=== PATIENT | male | born 1935 | race Hispanic/Latino ===

== ENCOUNTER 2020-03-13 19:18 | Inpatient (IN) | payer OTHER ==
--- OUTSIDE RECORDS SUMMARY | 2020-03-13 19:28 | XMS REPORT | Continuity of Care Document ---
:1935 Author Organization [employer] Care Team Providers Name Role Phone [place] Unavailable Un available Problems Problem Status Onset Classification Date Comments Sourc e Date Reported F/U Active 03/30/[address] F/U /OB PER DR Active 11/10/19 [place] AV[place] [address] [place] [address] Center GREAT TOE Active 11/10/19 [facility] AMPUTATION [address] [place] [address] Center FOLLOW UP Active 06/25/[address] BLOOD COTH IN LEG Active 05/20/[address] WOUND BIG TOE LEFT Active 01/09/[address] DIABETES WITH Active 11/04/19 [place] OTHER SPECIFIED 15 [facility] MANIFESTAT Center DX:440.23/ Active 09/04/19 [facility] ATHEROSCLEROSIS OF 15 [facility] ART Center CCL/ LEFT LEG LIVESTOCK PRODUCER Active 09/04/19 [facility] / DX:440.23 15 Medical Center 440.23 Active 05/04/20 [place] [id number] Medical Center CCL/LEFT LEG [place] LIVE[place] PRODUC[place]/DX: 440.23 Medic al Center LEFT 2ND TOE [place] [facility] LEFT SECOND TOE Active 02/14/20 [place],ICD.[id number] [place], [place] [address] Center PERIPHERAL ARTERY Active 02/01/20 [facility] DZ, CHRONIC 12 Medical OSTEOMYELITIS LT [address] FOOT ULCER OF OTHER [place] 01/24/20 [place] OF FOOT [address] [place] [address] Center WOUND Active 05/14/[address] Center UNK Active 04/14/20 [facility] [place] VASCUALR DISEASE Active 03/31/[address] LT FOOT Active 03/29/20 [facility] CELLULITIS, 11 Medical DIABETIC FOOT Center ULCER, DM, 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 Active 03/29/[address] Center NHW Active 05/14/[address] Center [place] Active 05/14/[address] Diabetes mellitus Active Problem 02/09/2013 [facility] [place] Infection Active Problem 02/09/2013 [facility], [place] Weakness Active Problem 02/09/2013 [facility] Poor arterial Active Problem 02/09/2013 [place] perfusion of leg [facility] ica Center Diabetes mellitus Active Problem 05/12/2016 [facility] (disorder) [facility] Infectious disease Active Problem 05/12/2016 [facility] (disorder) [facility] Poor arterial Active Problem 05/12/2016 [place] perfusion of leg Med ica (finding) Center Asthenia (finding) Active Problem 05/12/2016 [facility] Hypertensive Active Problem 05/12/2016 [place] disorder, systemic edical arterial Center (disorder) 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/2016 [facility] vascular disease Med ical (disorder) 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 CELLULITIS OF FOOT Active [facility] ROUTINE MEDICAL Active [facility] EXAM Medical Center OPEN WOUND Active TOE-COMPL [facility] NECROTIZING Active FASCIITIS [facility] ULCER OTHER PART Active [facility] OF FOOT Medical Center DMII OTH NT ST Active [facility] OTHER GENERAL Active [place] SYMPTOMS Medical Center GANGRENE Active [facility] EMBOLISM DUE TO Active [facility] INTERNAL Medical ORTHOPEDIC PROS Cent er GANGRENE, NOT Active [place] as ELSEWHERE Medical CLASSIFIED Center Medications Medication Details Route Status Patient Ordering Order Source Instructions Provider Date Sodium Chloride 1,000 mL, Rate: No Longer 11/24/ [facility] 0.154 MEQ/ML 17 Active 2015 Medical Injectable microgram/hr, Center Solution Route: IV, Dosing Weight 81.818 kg, Total Volume: 1,000 mL, PRN itching, Start date: 11/25/15 15:55:00 CDT, Duration: 30 day, Stop date: 12/25/15 15:54:00 CDT Naloxone Notes: Same as No Longer 11/24/ [place] Narcan Active 2016 Medical Center Dexamethasone Notes: No Longer [place] Concentration: Active 2015 Medical 4mg/ml Center Ondansetron Notes: (Same [place] Long[place] as: Zofran) Active 2016 Medical MEDICATION Center WASTE Product Size: 4 mg Product Wasted: ___ mg Flumazenil Notes: (Same No Longer [place] as: Romazicon) Active 2015 Medical Center Albuterol 0.83 Notes: SEE RT No Longer H [place] MG/ML Inhalant DOCUMENTATION Active 2015 Med ical Solution (Same as: Center Proventil) Fentanyl Notes: (Same No Longer [place] as: Sublimaze) Active 2015 Medical Preservative Center free. Metoprolol Notes: (Same No Longer [place] as: Lopressor) Active 2015 Medical Push over 2 Center minutes Ondansetron 4 mg, Route: Inactive [place] IVP, ONCE, 2015 Medical Dosing Weight Center 81.818, kg, PRN Nausea & Vomiting, Start date: 11/25/15 13:09:00 CDT Naloxone 0.4 mg, Route: Inactive [place] IVP, Q2MIN, 2015 Medical Dosing Weight Center 81.818, kg, PRN Narcotic Reversal, Start date: 11/25/15 13:09:00 CDT, Duration: 8 doses or times, Stop date: Limited # of times Hydromorphone Notes: Same as: No Longer [place] Dilaudid Active 2015 Medical Center Flumazenil 0.2 mg, Route: [place] IVP, PRN, 2016 Medical Dosing Weight Center 81.818, kg, PRN Benzodiazepine Reversal, Initial dose, Start date: 11/25/15 13:09:00 CDT, Duration: 30 day, Stop date: 12/25/15 13:08:00 CDT Labetalol 10 mg, 2 mL, [place] Longer [place] Route: IVP, Active 2015 Medical Drug form: INJ, Center Q5Min, Dosing Weight 81.818, kg, PRN Elevated BP, Start date: 11/25/15 13:09:00 CDT, Duration: 5 doses or times, Stop date: Limited # of times Hydralazine Notes: (Same [place] Long[place] as: Apresoline) Active 2016 Medical Push over 5 Center minutes Acetaminophen 1 tab, PO, Q6H, Active [place] 325 MG / PRN for pain, X 2016 Medical Hydrocodone 6 day, # 24 Center Bitartrate 10 tab, 0 MG Oral Tablet Refill(s), [[place] 10/325] given to patient ciprofloxacin 500 mg = 1 tab, Active [place] 500 mg oral PO, Q12H, X 7 2016 Medica l tablet day, # 14 tab, Center 0 Refill(s), given to patient ceFAZolin Notes: Same as: No Longer [place] Ancef Active 2015 [facility] Levemir 10 units, Active [place] SUB-Q, QPM, 0 2016 Medical Refill(s) [place] pravastatin 40 40 mg = 1 tab, Active [place] mg oral tablet PO, QAM, 0 2015 Medica l Refill(s) [place] magnesium oxide 400 mg = 1 tab, Active [place] 400 mg oral PO, Daily, # 10 2016 Medi renato tablet tab, 0 Center Refill(s) ferrous sulfate 325 mg = 1 tab, Active [place] 325 mg oral PO, Daily, # 30 2016 Medi renato enteric coated tab, 0 Center tablet Refill(s) Caltrate 600 + 1 tab, PO, BID, Active H [place] D 0 Refill(s) 2016 [facility] Aspirin 81 MG 81 mg = 1 tab, Active [place] Enteric Coated PO, Daily, # 90 2015 edical Tablet tab, 3 Center Refill(s) clopidogrel 75 75 mg = 1 tab, Active [place] MG Oral Tablet PO, Daily, # 30 2015 M edical [Plavix] tab, 0 Center Refill(s) levothyroxine 50 microgram = Active [place] 50 mcg (0.05 1 tab, PO, 2016 Medical mg) oral tablet Daily, # 30 Cent er tab, 0 Refill(s) Senna-gen 8.6 17.2 mg = 2 Active [place] mg oral tablet tab, PO, 2016 Medical Bedtime, PRN Center for constipation, PRN, # 100 tab, 0 Refill(s) ramipril 2.5 mg 2.5 mg = 1 cap, Active [place] oral capsule PO, BID, 0 2016 Medical Refill(s) [place] Levemir FlexPen Notes: Same as No Longer [place] Levemir Do not Active 2015 Medical hold insulin Center without contacting prescriber WASTE: F/P - Black; E - Municipal Trash Bin "single patient use only" insulin detemir Notes: Same as Inactive [facility] Levemir Do not 2016 [facility] insulin Center without contacting prescriber WASTE: F/P - Black; E - Municipal Trash Bin "single patient use only" doxycycline Notes: (Same Inactive [place] hyclate 100 MG as: Vibramycin) 2016 M edical Oral Capsule No Center milk/antacids/i priya. Altace Notes: (Same Inactive [place] as:Altace) 2016 Medical [place] senna 8.6 mg 8.6 mg = 1 tab, Active [place] oral tablet PO, Bedtime, 2016 Medical PRN Center Constipation, 0 Refill(s) ramipril 1.25 2.5 mg, PO, Active [place] mg oral capsule Daily, 0 2015 Medical Refill(s) [place] Lidocaine 1 patch, TOP, [place] Hydrochloride Daily, Remove 2016 [place] 0.05 MG/MG after 12 hours, Cente r Transdermal 0 Refill(s) Patch [Lidoderm] metoprolol 50 mg = 1 tab, Active [place] tartrate 50 mg PO, BID, 0 2016 Medica l oral tablet Refill(s) [place] Lactulose 667 20 gm = 30 mL, Active [place] MG/ML Oral PO, Q8H, PRN 2016 Medical Solution Constipation, 0 Center Refill(s) Insulin, 5 unit, SUB-Q, Active [place] Aspart, Human TID-Before 2016 Medical Meals, PRN Center Blood Glucose Results, 0 Refill(s) heparin sodium, SUB-Q, Q8H, 0 Active [place] porcine 2500 Refill(s) 2016 Medical UNT/ML [place] Injectable Solution Famotidine 20 20 mg = 1 tab, Active [place] MG Oral Tablet PO, Daily, 0 2015 Medi renato Refill(s) Center doxycycline 100 mg = 1 cap, Active [place] hyclate 100 MG PO, [id number], 0 2015 Wi dical Oral Capsule Refill(s) [place] Docusate Sodium 100 mg = 1 cap, Active [place] 100 MG Oral PO, BID, 0 2015 Medical Capsule Refill(s) [place] [Colace] acetaminophen 650 mg = 2 tab, Active [place] 325 mg oral PO, Q6H, PRN 2016 Medical tablet Pain Score 1-3, Center 0 Refill(s) insulin detemir 10 unit, SUB-Q, Active [place] 100 units/mL Bedtime, 0 2015 Medical subcutaneous Refill(s) [place] solution clopidogrel 75 75 mg = 1 tab, Active [place] mg oral tablet PO, Daily, 0 2015 Medi renato Refill(s) Center Altace Notes: (Same Inactive [facility] as:Altace) 2015 [facility] quinapril 5 mg, Route: Inactive [place] PO, Drug form: 2016 Medical TAB, Daily, Center Dosing Weight 75, kg, Start date: 06/04/15 13:00:00, Duration: 30 day, Stop date: 07/04/15 9:00:00 Lasix 20 mg, Route: Inactive [place] IVP, Drug form: 2016 Medical INJ, ONCE, Center Dosing Weight 75, kg, Start date: 06/03/15 19:56:00, Stop date: 06/03/15 19:56:00 Magnesium Notes: WASTE: Inactive [place] Sulfate F/P - Sink; E - 2016 [facility] Municipal Trash [place] Bin potassium Notes: (Same Inactive [facility] chloride as: K-Dur 20) 2015 [facility] "Do Not Crush" Center With food and full glass of water Ancef Notes: Same as: No Longer [place] Ancef Active 2016 [facility] heparin sodium, Notes: porcine No Longer [place] porcine 2500 heparin Active 2015 Medical UNT/ML Center Injectable Solution Magnesium 1 gm, 100 mL, [place] Sulfate Route: IVPB, 2016 Medical Drug form: INJ, Center ONCE, Dosing Weight 75, kg, Start date: 06/02/15 7:46:00, Stop date: 06/02/15 7:46:00 Lasix Notes: (Same Inactive [place] as: Lasix) 2016 Medical Center Flumazenil Notes: (Same [place] as: Romazicon) 2016 Medical Center Naloxone Notes: Same as [place] Narcan 2016 [facility] Center Hydralazine Notes: (Same Inactive [place] as: Apresoline) 2016 Medical Push over 5 Center minutes Oxycodone Notes: (Same Inactive [place] as: Roxicodone) 2016 [facility] Center Ondansetron Notes: (Same Inactive [place] as: Zofran) 2016 Medical MEDICATION Center WASTE Product Size: 4 mg Product Wasted: ___ mg Ancef Notes: Same as: [place] Ancef 2016 [facility] Center Magnesium Oxide Notes: (Same Inactive [place] as: Mag-Ox 400) 2016 [facility] Magnesium oxide [place] [id number] elemental magnesium Dose=____mg magnesium oxide (___mg elemental magnesium) Sodium Chloride Notes: (Same No Longer H [place] 0.0769 MEQ/ML as: Osmitrol) Active 2015 [facility] renato Injectable Infuse through Center Solution 5 micron or smaller filter Sodium Chloride 1,000 mL, Rate: No Longer [place] 0.0769 MEQ/ML 70 ml/hr, Active 2015 Medical Injectable Infuse over: Center Solution 14.3 hr, Route: IV, Dosing Weight 75 kg, Total Volume: 1,000, Start date: 05/31/15 6:00:00, Duration: 30 day, Stop date: 06/30/15 5:59:00 Acetylcysteine 600 mg, 3 mL, No Longer H [place] 200 MG/ML Route: PO, Drug Active 2015 Medica l Inhalant form: SOLN, Center Solution BID, Dosing Weight 75, kg, Start date: 05/30/15 17:00:00, Stop date: 06/01/15 9:00:00 Magnesium 2 gm, 50 mL, Inactive [place] Sulfate Route: IVPB2015 Medical Drug form: INJ, Center Q2H, Dosing Weight 75, kg, Total dose = 4 gm, Start date: 05/30/15 8:00:00, Duration: 2 doses or times, Stop date: 05/30/15 10:00:00 potassium Notes: (Same Inactive [facility] chloride as: K-Dur 20) 2015 Medical "Do Not Crush" Center With food and full glass of water Pepcid Notes: (Same No Longer [facility] as: Pepcid) Active 2016 Medical Center Magnesium 2 gm, 50 mL, Inactive [place] Sulfate Route: IVPB2015 Medical Drug form: INJ, Center ONCE, Dosing Weight 75, kg, Total dose = 2 gm, Start date: 05/29/15 7:12:00, Duration: 1 doses or times, Stop date: 05/29/15 7:12:00 Lasix Notes: (Same Inactive [facility] as: Lasix) 2015 Medical Center Guaifenesin Notes: (Same [place] as: Guaifenesin Active 2015 Medical [place], Humibid [place], Center Mucinex) "Do Not Crush" Take medication with plenty of water. Magnesium 2 gm, 50 mL, Inactive [place] Sulfate Route: IV2015 Medical Drug form: INJ, Center ONCE, Dosing Weight 75, kg, Total dose = 2 gm, Start date: 05/28/15 7:51:00, Duration: 1 doses or times, Stop date: 05/28/15 7:51:00 Magnesium 2 gm, 50 mL, Inactive [place] Sulfate Route: IVPB2015 Medical Drug form: INJ, Center ONCE, Dosing Weight 75, kg, Total dose = 2 gm, Start date: 05/27/15 6:47:00, Duration: 1 doses or times, Stop date: 05/27/15 6:47:00 potassium Notes: (Same Inactive [facility] chloride as: K-Dur 20) 2015 Medical "Do Not Crush" Center With food and full glass of water Fentanyl Notes: (Same Inactive [place] as: Sublimaze) 2016 Medical Preservative Center free. Hydralazine Notes: (Same [place] Long[place] as: Apresoline) Active 2016 Medical Push over 5 Center minutes potassium Notes: (Same Inactive [place] chloride as: K-Dur 20) 2016 Medical "Do Not Crush" Center With food and full glass of water Magnesium 2 gm, 50 mL, Inactive [place] Sulfate Route: IVPB, 2016 Medical Drug form: INJ, Center ONCE, Dosing Weight 75, kg, Total dose = 2 gm, Start date: 05/25/15 10:26:00, Duration: 1 doses or times, Stop date: 05/25/15 10:26:00 Acetaminophen Notes: Do not No Longer [place] exceed 4 Active 2016 Medical gm/day. (Same Center as: Tylenol) mannitol 25% 1,000 mL, Rate: No Longer [place] intravenous 50 ml/hr, Active 2015 Medical solution 12.5 Infuse over: Cente r gm + sodium 22.5 hr, Route: bicarbonate IV, Dosing 8.4% 75 mEq + Weight 75 kg, Sodium Chloride Total Volume: 0.45% 1,125, Start date: 05/24/15 15:30:00, Stop date: 06/23/15 15:29:00 Docusate Sodium Notes: (Same No Longer [place] 100 MG Oral as: Colace) (Do Active 2015 [facility] renato Capsule Not Crush) Center [Colace] Lactulose Notes: (Same [place] Long[place] as:Chronulac) Active 2015 [facility] senna 8.6 mg Notes: (Same [place] Longer [place] oral tablet as: Senokot) Active 2016 Medical Center 1/2 NS 1000 mL 1,000 mL, Rate: Inactive [place] + sodium 50 ml/hr, 2016 Medical bicarbonate Infuse over: 20 Cent er 8.4% 75 mEq + hr, Route: IV, mannitol 25% Dosing Weight intravenous 75 kg, Total solution 12.5 Volume: 1,000, gm Start date: 05/23/15 11:01:00, Duration: 48 hr, Stop date: 05/25/15 11:00:00 mannitol 25% 1,000 mL, Rate: No Longer H [place] intravenous 50 ml/hr, Active 2016 Medical solution 12.5 Infuse over: Cente r gm + sodium 22.5 hr, Route: bicarbonate IV, Dosing 8.4% 75 mEq + Weight 75 kg, Sodium Chloride Total Volume: 0.45% 1,125, Start date: 05/23/15 9:23:00, Stop date: 05/24/15 11:00:00 mannitol 25% Notes: (Same [place] intravenous as: Osmitrol) 2015 Medica l solution 12.[address] gm + sodium 5 micron or bicarbonate smaller filter 8.4% 75 mEq + Sodium Chloride 0.45% Sodium Chloride Notes: (Same Inactive [place] 0.0769 MEQ/ML as: Osmitrol) 2015 Medi [place] Injectable Infuse through Center Solution 5 micron or smaller filter potassium Notes: (Same Inactive [place] chloride as: K-Dur 20) 2016 Medical "Do Not Crush" Center With food and full glass of water Acetylcysteine 600 mg, 3 mL, No Longer H [place] 200 MG/ML Route: PO, Drug Active 2015 Medica l Inhalant form: SOLN, Center Solution BID, Dosing Weight 75, kg, Start date: 05/22/15 17:00:00, Duration: 2 day, Stop date: 05/24/15 9:00:00 Levemir FlexPen Notes: Same as No Longer [place] Levemir Do not Active 2015 Medical hold insulin Center without contacting prescriber "single patient use only" ferrous sulfate Notes: Give No Longer [place] with food. "Do Active 2015 Medical Not Crush" Center remove patch Notes: Remove No Longer [place] patch 12 hours Active 2015 Medical after Center application each day. Sodium Chloride 750 mL, Rate: No Longer [place] 0.154 MEQ/ML 75 ml/hr, Active 2015 Medical Injectable Infuse over: 10 Cente r Solution hr, Route: IV, Dosing Weight 75 kg, Total Volume: 750, Start date: 05/21/15 16:18:00, Duration: 10 hr, Stop date: 05/22/15 2:17:00 Lidocaine Notes: Apply [place] Longer [place] Hydrochloride only once for Active 2015 [place] 0.05 MG/MG up to 12 hours Center Transdermal in a 24-hour Patch period (12 [Lidoderm] hours on and 12 hours off). (Same as: Lidoderm) "Remove old patch before application of new patch" Morphine Notes: (Same Inactive [facility] as:MORPhine 2015 Medical Sulfate) [place] Acetaminophen Notes: Same as No Longer [place] 325 MG / [place] 325-7.5mg Active 2015 Medical Hydrocodone Do not exceed Cent er Bitartrate 7.5 4gm/day of MG Oral Tablet acetaminophen. [[place] 7.5/325] Magnesium 2 gm, 50 mL, Inactive [facility] Sulfate Route: IVPB, 2016 Medical Drug form: INJ, Center ONCE, Dosing Weight 75, kg, Total dose = 2 gm, Start date: 05/21/15 5:50:00, Duration: 1 doses or times, Stop date: 05/21/15 5:50:00 Morphine Notes: (Same Inactive [facility] as:MORPhine 2015 Medical Sulfate) [place] Hydralazine Notes: (Same Inactive [place] as: Apresoline) 2016 Medical Push over 5 Center minutes Sodium Chloride 1,000 mL, Rate: No Longer [place] 0.0769 MEQ/ML 50 ml/hr, Active 2015 Medical Injectable Infuse over: [place] Solution 22.5 hr, Route: IV, Dosing Weight 79.091 kg, Total Volume: 1,125, Start date: 05/20/15 22:00:00, Duration: 30 day, Stop date: 06/19/15 21:59:00 Pravastatin Notes: (Same [place] as: Pravachol) Active 2016 [facility] Acetylcysteine 600 mg, 3 mL, No Longer [place] 200 MG/ML Route: PO, Drug Active 2015 Medica l Inhalant form: SOLN, [place] Solution BID, Dosing Weight 79.091, kg, Start date: 05/20/15 17:00:00, Duration: 2 day, Stop date: 05/22/15 9:00:00 quinapril Notes: Inactive [facility] Non-Formulary 2016 Medical Drug (Same as: [place] Accupril) metoprolol Notes: (Same No Longer [place] tartrate as: Lopressor) Active 2016 Medical Center Protonix Notes: Tablet [place] Longer [place] should not be Active 2015 [facility] chewed or [place] crushed. (Same as: Protonix) Altace Notes: (Same No Longer [place] as:Altace) Active 2016 [facility] Center Plavix Notes: (Same No Longer [place] As: Plavix) Active 2016 [facility] Aspirin Notes: Do not No Longer [place] crush or chew. Active 2015 Medical (Same As: [place] Ecotrin) Insulin, Notes: Roll in No Longer [place] as Aspart, Human palms of hands Active 2015 Med ical gently; Do not Center shake vigorously. (Same as: NovoLOG) "single patient use only" Stable for 28 days at room temperature. Expires in days from D ate Dextrose 50% 12.5 gm, 25 mL, No Longer [facility] Syringe Route: IVP, Active 2015 Medical Drug Form: INJ, Center Dosing Weight 79.091, kg, PRN, PRN Blood Glucose Results, Start date: 05/20/15 14:08:00, Duration: 30 day, Stop date: 06/19/15 14:07:00 Glucagon 1 mg, Route: No Longer [place] IM, Drug form: Active 2015 Medical PDR/INJ, PRN, Center Dosing Weight 79.091, kg, PRN Blood Glucose Results, Start date: 05/20/15 14:08:00, Duration: 30 day, Stop date: 06/19/15 14:07:00 Heparin - one 4,000 unit, [place] time bolus for Route: IV, Drug 2015 edical ACS form: INJ, Center ONCE, Dosing Weight 79.091, kg, Priority: STAT, Start date: 05/20/15 14:05:00, Stop date: 05/20/15 14:05:00 Heparin 30 Route: IVP, [place]er [place] unit/kg Bolus PRN, 2,400 Active 2015 Medical (Heparin Dosing unit, 2.4 mL, Ce nter Weight) Drug form: INJ, PRN, Heparin Protocol, Start date: 05/20/15 14:05:00 Stop date: 06/19/15 14:04:00, 30 day Heparin 60 Route: IVP, No Longer [place] unit/kg Bolus PRN, 6,300 Active 2015 Medical (Heparin Dosing unit, 6.3 mL, Ce nter Weight) Drug form: INJ, PRN, Heparin Protocol, Start date: 05/20/15 14:05:00 Stop date: 06/19/15 14:04:00, 30 day heparin 500 mL, Rate: No Longer [place] additive 25,000 18.98 ml/hr, Active 2015 Med ical unit [12 Infuse over: Center unit/kg/hr] + 26.3 hr, Route: Premix Diluent IV, Dosing Dextrose 5% 500 Weight 79.091 mL kg, Total Volume: 500 mL, Start date: 05/20/15 14:05:00, Duration: 30 day, Stop date: 06/19/15 14:04:00 Ondansetron Notes: (Same Inactive [place] as: Zoalisson) 2016 Medical MEDICATION Center WASTE Product Size: 4 mg Product Wasted: ___ mg Morphine Notes: (Same Inactive [place] as:MORPhine 2016 Medical Sulfate) Center Acetylcysteine 600 mg, 3 mL, No Longer [place] 200 MG/ML Route: PO, Drug Active 2014 Medica l Inhalant form: SOLN, Center Solution Q12H, Dosing Weight 87.727, kg, give 6 doses, Start date: 09/10/14 21:00:00, Duration: 6 doses or times, Stop date: 09/13/14 9:00:00 clopidogrel 75 75 mg = 1 tab, Active [place] MG Oral Tablet PO, Daily, # 90 2014 M edical [Plavix] tab, 3 Center Refill(s) sodium 1,000 mL, Rate: No Longer [place] as bicarbonate 75 ml/hr, Active 2014 Medical 8.4% 75 mEq + Infuse over: 15 Ce nter mannitol 25% hr, Route: IV, intravenous Dosing Weight solution 12.5 87.727 kg, gm + 1/2 NS Total Volume: 1,000 mL 1,125, Start date: 09/10/14 12:44:00, Duration: 48 hr, Stop date: 09/12/14 12:43:00 Nitroglycerin Notes: (Same Inactive [place] as:Stacey, 2015 Medical Nitrostat) "Do Center Not Crush" Sublingual tablet NS 1,000 mL 1,000 mL, Rate: Inactive [place] 75 ml/hr, 2015 Medical Infuse over: Center 13.3 hr, Route: IV, Dosing Weight 87.727 kg, Total Volume: 1,000, Start date: 09/10/14 8:27:00, Duration: 30 day, Stop date: 10/10/14 8:26:00 Sodium Chloride 250 mL, 250 Inactive [place] 0.154 MEQ/ML ml/hr, Infuse 2015 Medic al Injectable Over: 1 hr, Center Solution Route: IV, 250, Drug form: INJ, ONCE, Priority: STAT, Dosing Weight 87.727 kg, Start date: 09/10/14 8:26:00, Duration: 1 doses or times, Stop date: 09/10/14 8:26:00 Sodium Chloride 750 mL, Rate: Inactive H [place] 0.154 MEQ/ML 75 ml/hr, 2014 Medical Injectable Infuse over: 10 Cente r Solution hr, Route: IV, Dosing Weight 92.727 kg, Total Volume: 750, Start date: 09/10/14 8:16:00, Duration: 1 doses or times, Stop date: 09/10/14 18:15:00 bromfenac 0.9 Route: RIGHT No Longer [place] MG/ML EYE, Drug Form: Active 2013 Medical Ophthalmic SOLN, Dosing Center Solution Weight 92.727, [Bromday] kg, Daily, Start date: 05/13/14 9:00:00, Duration: 30 day, Stop date: 06/11/14 9:00:00 Humulin 70/30 Notes: Roll in Inactive [place] palms of hands 2014 Medical gently; Do not Center shake. (Same as: NovoLIN Mix 30) Do not hold insulin without contacting prescriber Bromday 0.09% Bromday 0.09% Inactive [place] opthalmic soln opthalmic soln, 2014 M edical 1 drp, Drug Center form: MISC, Route: RIGHT EYE, Daily, 05/13/14 9:00:00, Duration: 30 day, Stop date: 06/11/14 9:00:00 Effient 60kg, without Inactive [facility] history of 2013 Medical TIA/Ischemic Center stroke and without likely bypass surgery aspirin Notes: Do not Inactive [facility] crush or chew. 2014 Medical (Same As: [place] Ecotrin) quinapril Notes: Inactive [facility] Non-Formulary 2014 Medical Drug (Same as: [place] Accupril) Pravastatin Notes: (Same Inactive [facility] as as: Pravachol) 2013 [facility] Saline Flush Notes: Same as: No Longer H [place] 0.9% BD Posiflush Active 2013 [facility] Sterile [place] Levemir FlexPen Notes: Same as No Longer [facility] Levemir Do not Active 2013 [facility] insulin Center without contacting prescriber "single patient use only" normal saline 1,000 mL, Rate: No Longer [facility] 0.9% IV 1,000 50 ml/hr, Active 2013 Medical mL Infuse over: 20 Center hr, Route: IV, Dosing Weight 92.727 kg, Total Volume: 1,000, Start date: 05/12/14 16:41:00, Duration: 30 day, Stop date: 06/11/14 16:40:00 Saline Flush Notes: Same as: No Longer H [place] 0.9% BD Posiflush Active 2013 [facility] Sterile [place] Nitroglycerin Notes: (Same No Longer [facility] as:Nitroquick, Active 2013 Medical Nitrostat) "Do Center Not Crush" Sublingual tablet Acetaminophen Notes: (Same No Longer [place] 325 MG / as: [place] Active 2013 Medical Hydrocodone 325/5) Do not Cente r Bitartrate 5 MG exceed 4gm/day Oral Tablet of acetaminophen. Saline Flush Notes: Same as: No Longer H [place] 0.9% BD Posiflush Active 2013 [facility] Sterile [place] Sodium Chloride 250 mL, 250 Inactive [facility] 0.154 MEQ/ML ml/hr, Infuse 2013 Medic al Injectable Over: 1 hr, Center Solution Route: IV, 250, Drug form: INJ, ONCE, Priority: Routine, Dosing Weight 92.727 kg, Start date: 05/12/14 11:35:00, Duration: 1 doses or times, Stop date: 05/12/14 11:35:00 Saline Flush Notes: (Same [place] 0.9% as: BD 2013 Medical Posiflush) Center Labetalol 10 mg, 2 mL, Inactive [place] Route: IVP, 2013 Medical Drug form: INJ, Center Q15Min, Dosing Weight 93.182, kg, PRN Hypertension, Start date: 01/22/14 13:02:00, Duration: 3 doses or times, Stop date: 01/23/14 0:00:00 Acetaminophen Notes: (Same Inactive [place] 325 MG / as: [place] 2013 Medical Hydrocodone 325/5) Do not Cente r Bitartrate 5 MG exceed 4gm/day Oral Tablet of acetaminophen. Saline Flush Notes: (Same Inactive [place] 0.9% as: BD 2013 Medical Posiflush) Center Acetaminophen 1 tab, Route: Inactive [place] 325 MG / PO, Dosing 2013 Medical Hydrocodone Weight 93.182, Cente r Bitartrate 5 MG kg, Q4H, PRN Oral Tablet Pain Score 1-5, Start date: 01/22/14 10:05:00, Duration: 30 day, Stop date: 02/21/14 10:04:00 Nitroglycerin 0.4 mg, Route: Inactive Ci[place] SL, Drug form: 2013 Medical TAB, Q5Min, Center Dosing Weight 93.182, kg, PRN Chest Pain, Start date: 01/22/14 10:05:00, Duration: 3 doses or times, Stop date: Limited # of times Saline Flush Notes: (Same Inactive [place] 0.9% as: BD 2013 Medical Posiflush) Center Levemir FlexPen 45 units, Active [place] as SUB-Q, Bedtime, 2013 Medical 0 Refill(s) Center Humulin 70/30 40 units, Active [place] SUB-Q, Daily, 0 2013 Medical Refill(s) Center prasugrel 10 MG 10 mg = 1 tab, Active H [place] Oral Tablet PO, Daily, # 30 2013 [facility] renato [Effient] tab, 0 Center Refill(s) Metformin 1,000 mg = 1 Active [place] hydrochloride tab, PO, BID, 0 2013 Me dical 1000 MG Oral Refill(s) Center Tablet Saline Flush Notes: (Same Inactive [place] 0.9% as: BD 2013 Medical Posiflush) Center Saline Flush 5 ml, Route: Inactive [place] 0.9% IVP, Drug Form: 2013 Medical INJ, Dosing Center Weight 85.455, kg, Q12H, Start date: 01/21/14 21:00:00, Duration: 30 day, Stop date: 02/20/14 9:00:00 Saline Flush 5 ml, Route: Inactive [place] 0.9% IVP, Drug Form: 2013 Medical INJ, Dosing Center Weight 85.455, kg, PRN, PRN Line Flush, Start date: 01/21/14 10:19:00, Duration: 30 day, Stop date: 02/20/14 10:18:00 Sodium Chloride 250 mL, Infuse Inactive [place] 0.154 MEQ/ML Over: 1 hr, 2013 Medical Injectable Route: IV, Center Solution ONCE, Priority: Routine, Dosing Weight 85.455 kg, Start date: 01/21/14 10:19:00, Duration: 1 doses or times, Stop date: 01/21/14 10:19:00 Augmentin 875 875 mg, 1 tab, PO Active [place] mg oral tablet PO, Q12H, 14 2011 [facility] renato tab, Center Substitution Allowed, Maintenance, TAB Vicoprofen 7.5 1-2TAB, PO, PO Active [place] 02/26[facility] [place] mg-200 mg oral Q4H, PRN, 30 2011 [facility] renato tablet tab, for pain, Center Substitution Allowed, Maintenance, TAB acetaminophen-h 2 tab, Route: PO No Longer Michael [place] ydrocodone 325 PO, Drug Form: Active 2011 Wi dical mg-5 mg oral TAB, Dosing Center tablet Weight 85.455, kg, Q4H, PRN Pain Score 4-6, Start date: 02/27/12 8:24:00, Duration: 30 day, Stop date: 03/28/12 8:23:00 metoprolol 1 mg, 1 mL, IVP No Longer Michael Barreraa s Route: IVP, 2011 Medical Drug form: INJ, Center Q5Min, Dosing Weight 85.455, kg, PRN Elevated BP, Start date: 02/27/12 8:24:00, Duration: 5 doses or times, Stop date: 02/28/12 0:00:00 labetalol 5 mg, 1 mL, IVP No Longer Michael [place] Route: IVP, 2011 Medical Drug form: INJ, Center Q5Min, Dosing Weight 85.455, kg, PRN Elevated BP, Start date: 02/27/12 8:24:00, Duration: 5 doses or times, Stop date: 02/28/12 0:00:00 morphine 2 mg, 0.5 mL, IVP No Longer Michael Barreraa s Sulfate Route: IVP, 2011 Medical Drug form: INJ, Center Q5Min, Dosing Weight 85.455, kg, PRN Pain Score 4-6, Start date: 02/27/12 8:24:00, Duration: 8 doses or times, Stop date: 02/28/12 0:00:00 ondansetron 4 mg, 2 mL, IVP No Longer Michael [place]rera as Route: IVP, 2011 Medical Drug form: INJ, Center ONCE, Dosing Weight 85.455, kg, PRN Nausea & Vomiting, Start date: 02/27/12 8:24:00 naloxone 0.04 mg, 0.1 IVP No Longer Michael [place] mL, Route: IVP, Active 2011 Medical Drug form: INJ, Center Q2MIN, Dosing Weight 85.455, kg, PRN Narcotic Reversal, Start date: 02/27/12 8:24:00, Duration: 8 doses or times, Stop date: 02/28/12 0:00:00 flumazenil 0.2 mg, 2 mL, IVP No Longer [place] Route: IVP, 2011 Medical Drug form: INJ, Center PRN, Dosing Weight 85.455, kg, PRN Benzodiazepine Reversal, Initial dose, Start date: 02/27/12 8:24:00, Duration: 5 doses or times, Stop date: 02/28/12 0:00:00 Cleocin 900 mg, 6 mL, IV No Longer [place] Phosphate Route: IV, Drug Active 2011 Medica l form: INJ, PRE Center OP, Start date: 02/26/12 21:00:00, Duration: 1 day, Stop date: 02/27/12 20:59:00 Citracal 250 mg PO, BID, PO Active [place] + D Substitution 2011 Medical Allowed, Center Maintenance magnesium oxide 400 mg, 1 tab, PO Active H [place] 400 mg oral PO, Daily, 10 2011 Medica l tablet tab, Center Substitution Allowed, TAB ferrous sulfate PO, Daily, PO Active [place] 324 mg (65 mg Substitution 2011 Medic al elemental iron) Allowed Center oral enteric coated tablet Aspirin Low PO, Daily, PO Active [place] Dose 81 mg oral Substitution 2011 Med ical tablet Allowed Center clindamycin PO, PO Active [place] Substitution 2011 Medical Allowed Center Effient PO, Daily, PO Active [place] Substitution 2011 Medical Allowed Center quinapril 20 mg 20 mg, 1 tab, PO Active [place] oral tablet PO, Daily, 30 2011 Medica l tab, Center Substitution Allowed, TAB pravastatin 40 40 mg, 1 tab, PO Active [place] mg oral tablet PO, Daily, 30 2011 Med ical tab, Center Substitution Allowed, TAB metFORmin 1000 1,000 mg, 1 PO Active [place] mg oral tablet tab, PO, BID, 2011 Med ical 30 tab, Center Substitution Allowed clindamycin 300 300 mg, 1 cap, PO Active Bertin [place] mg oral capsule PO, TID, 126 2011 Med ical cap, 0, 0, Center Substitution Allowed prasugrel 10 mg 10 mg, 1 tab, PO Active Bertin H [place] oral tablet PO, Daily, 60 2011 Medica l tab, 3, 3, Center Substitution Allowed, TAB prasugrel 10 mg, 1 tab, PO No Longer Mcdonough Barrera as Route: PO, Drug Active [place] 2011 Medical form: TAB, Center Daily, Dosing Weight 85.455, kg, Start date: 02/03/12 9:00:00, Duration: 30 day, Stop date: 03/03/12 9:00:00 Norvasc 5 mg, 1 tab, PO No Longer Mcdonough [facility] Route: PO, Drug Active [place] 2011 Medical form: TAB, Center Daily, Dosing Weight 85.455, kg, Priority: Routine, Start date: 02/03/12 9:00:00, Duration: 30 day, Stop date: 03/03/12 9:00:00 aspirin 325 mg 325 mg, 1 tab, PO No Longer Mcdonough [facility] tablet Route: PO, Drug Active [place] 2011 Medical form: TAB, Center Daily, Dosing Weight 85.455, kg, Start date: 02/03/12 9:00:00, Duration: 30 day, Stop date: 03/03/12 9:00:00 Lantus 20 unit, 0.2 SUB-Q No Longer [place] [facility] mL, Route: Active 2011 Medical SUB-Q, Drug Center form: INJ, Daily, Dosing Weight 85.455, kg, Start date: 02/03/12 9:00:00, Duration: 30 day, Stop date: 03/03/12 9:00:00 Januvia 100 mg 100 mg, 1 tab, PO No Longer [place] [facility] oral tablet PO, Daily, 30 Active 2011 Medica l tab, Center Substitution Allowed, TAB pravastatin 20 40 mg, 2 tab, PO Active [facility] [place] mg oral tablet PO, QPM, 60 2011 Medic al tab, Center Substitution Allowed, TAB prasugrel 10 mg 10 mg, 1 tab, PO No Longer [place] oral tablet PO, Daily, 90 Active 2011 Medica l tab, Center Substitution Allowed, TAB aspirin 325 mg 325 mg, 1 tab, PO Active Mcdonough [place] tablet PO, Daily, 60 Pino2011 Medical tab, Center Substitution Allowed, TAB Norvasc 5 mg 5 mg, 1 tab, PO No Longer [place] [facility] oral tablet PO, Daily, 60 Active 2011 Medica l tab, Center Substitution Allowed, TAB hydrALAZINE 10 mg, 0.5 mL, IV No Longer Ceasar [facility] Route: IV, Drug Active [place] 2011 Medical form: INJ, Q4H, Center Dosing Weight 85.455, kg, PRN Elevated BP, Priority: NOW, Start date: 02/03/12 8:50:00, Duration: 30 day, Stop date: 03/04/12 8:49:00, SBP > 160 acetylcysteine 600 mg, 6 mL, PO No Longer Bertin [place] oral solution Route: PO, Drug Active 2011 Me dical (mg) form: SOLN, Center Q12H, Dosing Weight 85.455, kg, Start date: 02/02/12 21:00:00, Stop date: 02/04/12 9:00:00 Norvasc 5 mg, 1 tab, PO No Longer Ceasar [place] Route: PO, Drug Active [place] 2011 Medical form: TAB, Center Daily, Dosing Weight 85.455, kg, Priority: NOW, Start date: 02/02/12 19:44:00, Duration: 30 day, Stop date: 03/03/12 9:00:00 hydrALAZINE 10 mg, 0.5 mL, IV No Longer Bertin [facility] Route: IV, Drug Active 2011 Medical form: INJ, Q4H, Center Dosing Weight 85.455, kg, Priority: NOW, Start date: 02/02/12 19:40:00, Duration: 30 day, Stop date: 03/03/12 16:00:00 nitroglycerin 2 inch, Route: TOP No Longer Avendaño [facility] 2% topical TOP, Drug Form: Active 2011 Medic al ointment OINT, Dosing Center Weight 85.455, kg, Q6H, Start date: 02/02/12 18:00:00, Duration: 30 day, Stop date: 03/03/12 12:00:00 pravastatin 40 mg, 2 tab, PO No Longer Mcdonough Maxine [place] Route: PO, Drug Active [place] 2011 Medical form: TAB, QPM, Center Dosing Weight 85.455, kg, Start date: 02/02/12 17:00:00, Duration: 30 day, Stop date: 03/02/12 17:00:00 morphine 2 mg, 0.5 mL, IVP No Longer [place] Sulfate Route: IVP, Active [place] 2011 Medical Drug form: INJ, Center Q15Min, Dosing Weight 85.455, kg, PRN Chest Pain, Start date: 02/02/12 16:59:00, Duration: 2 doses or times, Stop date: Limited # of times ondansetron 4 mg, 1 tab, PO No Longer [place] Route: PO, Drug Active [place] 2011 Medical form: TAB, Q8H, Center Dosing Weight 85.455, kg, PRN Nausea & Vomiting, Start date: 02/02/12 16:59:00, Duration: 30 day, Stop date: 03/03/12 16:58:00 aspirin 325 mg 324 mg, 4 tab, PO No Longer Mcdonough [place] tablet Route: PO, Drug Active [place] 2011 Medical form: [place], Center ONCE, Dosing Weight 85.455, kg, Start date: 02/02/12 16:59:00, Stop date: 02/02/12 16:59:00 Sodium Chloride 1,000 mL, Rate: IV No Longer Mcdonough [place] 0.9% IV 1,000 30 ml/hr, Active [place] 2011 Medical mL Infuse over: Center 33.3 hr, Route: IV, kg, Total Volume: 1,000, Start date: 02/02/12 16:59:00, Duration: 30 day, Stop date: 03/03/12 16:58:00 heparin 5000 5,000 unit, 1 SUB-Q No Longer P[place]ner [place] units/mL mL, Route: Active 2011 Medical injectable SUB-Q, Drug Center solution form: INJ, Q8H, Dosing Weight 85.455, kg, Start date: 02/02/12 16:00:00, Duration: 30 day, Stop date: 03/03/12 8:00:00 [place] 10/325 1 tab, Route: PO No Longer Plessner [place] oral tablet PO, Drug Form: Active 2011 Medic al TAB, Dosing Center Weight 85.455, kg, Q4H, PRN Pain, Start date: 02/02/12 14:21:00, Duration: 30 day, Stop date: 03/03/12 14:20:00 influenza virus 0.5 ml, Route: Inactive SYSTEM [place] vaccine, IM, Drug Form: 2011 Medical inactivated INJ, Start Center date: 02/02/12 9:00:00, Stop date: 02/02/12 9:00:00 linagliptin 5 mg, Route: PO No Longer Bertin [place] PO, Daily, Active 2011 Medical Dosing Weight Center 85.455, kg, Start date: 02/02/12 9:00:00 lisinopril 40 mg, 2 tab, PO No Longer Bertin [place] Route: PO, Drug Active 2011 Medical form: TAB, Center Daily, Dosing Weight 85.455, kg, Start date: 02/02/12 9:00:00, Duration: 30 day, Stop date: 03/02/12 9:00:00 aspirin 81 mg 81 mg, 1 tab, PO No Longer Mcdonough [place] tablet, enteric Route: PO, Drug Active [place] 2011 Medical coated form: ECTAB, Center Daily, Dosing Weight 85.455, kg, Start date: 02/02/12 9:00:00, Duration: 30 day, Stop date: 03/02/12 9:00:00 Plavix 75 mg, 1 tab, PO No Longer Brooks Ci[place] Route: PO, Drug Active 2011 Medical form: TAB, Center Daily, Dosing Weight 85.455, kg, Start date: 02/02/12 9:00:00, Duration: 30 day, Stop date: 03/02/12 9:00:00 Mucomyst oral 600 mg, Route: PO No Longer Brooks Yuan [place] solution (mg) PO, Drug form: Active 2011 Med ical SOLN, BID, Center Dosing Weight 85.455, kg, Start date: 02/02/12 9:00:00, Duration: 2 day, Stop date: 02/03/12 17:00:00 Januvia 100 mg, 1 tab, PO No Longer Bertin [place]rera as Route: PO, Drug Active 2011 Medical form: TAB, Center Daily, Start date: 02/02/12 9:00:00, Duration: 30 day, Stop date: 03/02/12 9:00:00 prasugrel 60 mg, 6 tab, PO No Longer Guy [place] Route: PO, Drug Active 2011 Medical form: TAB, Center ONCE, Dosing Weight 85.455, kg, Start date: 02/02/12 7:52:00, Stop date: 02/02/12 7:52:00 morphine 2 mg, 0.5 mL, IVP No Longer Bertin [place] Sulfate Route: IVP, Active 2011 Medical Drug form: INJ, Center ONCE, Dosing Weight 85.455, kg, Start date: 02/02/12 5:59:00, Stop date: 02/02/12 5:59:00 morphine 1 mg, 0.25 mL, IVP No Longer [place] Sulfate Route: IVP, Active 2011 Medical Drug form: INJ, Center ONCE, Dosing Weight 85.455, kg, Start date: 02/01/12 23:09:00, Stop date: 02/01/12 23:09:00 latanoprost 1 drp, Daily, Active [place] as ophthalmic Substitute 2011 Medical Allowed Center metFORmin 1,000 mg, No Longer [place] Daily, Active 2011 Medical Substitution Center Allowed Tradjenta 5 mg 5 mg, 1 tab, Active [place] oral tablet Daily, 2011 Medical Substitution Center Allowed Lantus 40, Bedtime, Active Substitution 2011 Medical Allowed Center Humulin 70/30 40, Active Substitution 2011 Medical Allowed Center acetaminophen-h 1 tab, Route: PO No Longer Plessner [place] ydrocodone 325 PO, Drug Form: Active 2011 Me dical mg-5 mg oral TAB, Dosing Center tablet Weight 85.455, kg, Q6H, PRN Pain, Start date: 02/01/12 20:01:00, Duration: 30 day, Stop date: 03/02/12 20:00:00 Dextrose 50% 25 gm, 50 mL, IVP No Longer Bertin [place] Syringe Route: IVP, Active 2011 Medical Drug Form: INJ, Center Dosing Weight 85.455, kg, PRN, PRN Blood Glucose Results, Start date: 02/01/12 19:32:00, Duration: 30 day, Stop date: 03/02/12 19:31:00 glucagon 1 mg, Route: IM No Longer [place] IM, Drug form: Active 2011 Medical PDR/INJ, PRN, Center Dosing Weight 85.455, kg, PRN Blood Glucose Results, Start date: 02/01/12 19:32:00, Duration: 30 day, Stop date: 03/02/12 19:31:00 insulin aspart 6 unit, 0.06 SUB-Q No Longer [place] [facility] mL, Route: Active 2011 Medical SUB-Q, Drug Center form: SOLN, TID-Before Meals, Dosing Weight 85.455, kg, PRN Blood Glucose Results, Start date: 02/01/12 19:32:00, Duration: 30 day, Stop date: 03/02/12 19:31:00 Mucomyst oral 600 mg, 3 mL, PO No Longer Mcdonough [facility] solution (mg) Route: PO, Drug Active [place] 2011 Wi dical form: SOLN, Center BID, Dosing Weight 85.455, kg, Priority: NOW, Start date: 02/01/12 19:30:00, Stop date: 02/03/12 17:00:00 NS 1,000 mL 1,000 mL, Rate: IV No Longer [place] [facility] 125 ml/hr, Active 2011 Medical Infuse over: 8 Center hr, Route: IV, kg, Total Volume: 1,000, Start date: 02/01/12 19:28:00, Duration: 30 day, Stop date: 03/02/12 19:27:00 Lantus 10 unit, 0.1 SUB-Q No Longer Bertin [facility] mL, Route: Active 2011 Medical SUB-Q, Drug Center form: INJ, Daily, Dosing Weight 85.455, kg, Priority: NOW, Start date: 02/01/12 19:26:00, Duration: 30 day, Stop date: 03/02/12 9:00:00 ondansetron 4 mg, Route: IVP No Longer [place] IVP, Drug form: Active 2010 [place] INJ, ONCE, Start date: 04/17/11 10:38:00, Stop date: 04/17/11 10:38:00 hydrALAZINE 10 mg, Route: IV No Longer Dina IV, ONCE, Start Active 2010 [facility] t date: 04/17/11 10:37:00, Stop date: 04/17/11 10:37:00 clindamycin 900 mg, 6 mL, IVPB No Longer [place] 04/17/ H Route: IVPB, Active 2010 [facility] Drug form: INJ, ONCALL, Start date: 04/17/11 9:00:00, Duration: 30 day, Stop date: 05/17/11 8:59:00 Lactated 1,000 mL, Rate: IV No Longer [place] IV 40 ml/hr, Active 2010 [facility] 1,000 mL Infuse over: 25 hr, Route: IV, Total Volume: 1,000, Start date: 04/17/11 8:16:00, Duration: 30 day, Stop date: 05/17/11 8:15:00 ferrous sulfate 1 tab, PO, PO Active 325 mg oral Daily, 30 tab, 2010 [facility] enteric coated Substitution tablet Allowed, ECTAB metoprolol 25 25 mg, PO, PO Active mg oral tablet, Daily, 30 tab, 2010 [facility] extended Substitution release Allowed Plavix 75 mg 75 mg, 1 tab, PO Active [facility] [place] oral tablet PO, Daily, 2010 Medica l tab, Center Substitution Allowed, TAB Mucomyst oral 600 mg, 3 mL, PO No Longer Omidvar [place] solution (mg) Route: PO, Drug Active 2010 Wi dical form: SOLN, On Center Adm, Please send 2 doses now to bedside, Priority: STAT, Start date: 04/01/11 11:27:00, Stop date: 04/02/11 0:00:00 Lovenox 40 mg, 0.4 mL, SUB-Q No Longer [facility] [place] Route: SUB-Q, Active 2010 Medical Drug form: INJ, Center Daily, Start date: 04/01/11 9:00:00, Duration: 30 day, Stop date: 04/30/11 9:00:00 acetylcysteine 600 mg, 6 mL, PO No Longer [facility] Route: PO, Drug Active 2010 Medical Form: SOLN, Center BID, Start date: 03/31/11 9:00:00, Duration: 6 doses or times, Stop date: 04/02/11 17:00:00 Plavix 75 mg, 1 tab, PO No Longer Guy [facility] Route: PO, Drug Active 2010 Medical form: TAB, Center Daily, Start date: 03/31/11 9:00:00, Duration: 30 day, Stop date: 04/29/11 9:00:00 Sodium Chloride 1,000 mL, Rate: IV No Longer Guy [place] 0.45% IV 1,000 75 ml/hr, Active 2010 Medical mL Infuse over: Center 13.3 hr, Route: IV, Total Volume: 1,000, Start date: 03/31/11 4:00:00, Duration: 30 day, Stop date: 04/30/11 3:59:00 acetylcysteine 600 mg, 3 mL, PO No Longer Guy [facility] Route: PO, Drug Active 2010 Medical Form: ALLISONN, [place] BID, Routine, Start date: 03/30/11 23:30:00, Stop date: 04/02/11 9:00:00 acetylcysteine 600 mg, 6 mL, PO No Longer U[facility] Route: PO, Drug Active 2010 Medical Form: ALLISONN, [place] BID, NOW, Start date: 03/30/11 22:06:00, Duration: 6 doses or times, Stop date: 04/02/11 9:00:00 Lantus 30 unit, 0.3 SUB-Q No Longer Kandala [facility] mL, Route: Active 2010 Medical SUB-Q, Drug Center form: INJ, Bedtime, Start date: 03/30/11 21:00:00, Duration: 30 day, Stop date: 04/28/11 21:00:00 Plavix 300 mg, 1 tab, PO No Longer Guy Barreraa s Route: PO, Drug Active 2010 Medical form: TAB, Center ONCE, Start date: 03/30/11 19:14:00, Duration: 1 doses or times, Stop date: 03/30/11 19:14:00 calcium-vitamin 1 tab, Route: PO No Longer Kandala [place] D 500 mg-200 PO, Drug Form: Active 2010 Medi renato intl units oral TAB, Daily, Cent er tablet Start date: 03/30/11 9:00:00, Duration: 30 day, Stop date: 04/28/11 9:00:00 pravastatin 40 mg, 2 tab, PO No Longer [place] Route: PO, Drug Active 2010 Medical form: TAB, Center Bedtime, Start date: 03/30/11 9:00:00, Stop date: 04/28/11 21:00:00 quinapril 20 mg, Route: PO No Longer Kandala 03/30[facility] Barrera as PO, Drug form: Active 2010 Medical TAB, Daily, Center Start date: 03/30/11 9:00:00, Duration: 30 day, Stop date: 04/28/11 9:00:00 Humulin 70/30 30 unit, 0.3 SUB-Q No Longer Omidvar [place] mL, Route: Active 2010 Medical SUB-Q, Drug Center form: INJ, Daily, Start date: 03/30/11 9:00:00, Duration: 30 day, Stop date: 04/28/11 9:00:00 cilostazol 50 mg, 1 tab, [facility] [place] Route: PO, Drug Active 2010 Medical form: TAB, Center Daily, Start date: 03/30/11 9:00:00, Duration: 30 day, Stop date: 04/28/11 9:00:00 linagliptin 5 mg, Route: [facility] [place] PO, Drug form: Active 2010 Medical TAB, Daily, Center Start date: 03/30/11 9:00:00 Citracal 250 mg 1 tab, Route: PO [facility] 03[facility]30[facility] [place] + D PO, Drug Form: Active 2010 Medical TAB, BID, Start Center date: 03/30/11 9:00:00, Duration: 30 day, Stop date: 04/28/11 17:00:00 aspirin 81 mg 81 mg, 1 tab, PO No Longer Kandala 03/30[facility] [place] tablet, enteric Route: PO, Drug Active 2010 Medical coated form: ECTAB, Center Daily, Start date: 03/30/11 9:00:00, Duration: 30 day, Stop date: 04/28/11 9:00:00 Altace 2.5 mg, 1 cap, PO No Longer [place]ala 03/30[facility] [place] Route: PO, Drug Active 2010 Medical form: CAP, Center Daily, Start date: 03/30/11 9:00:00, Duration: 30 day, Stop date: 04/28/11 9:00:00 Linagliptin 5mg Linagliptin MISC No Longer Omidvar 03/30[facility] [place] 5mg, 5 mg, 1 Active 2010 Medical tab, Drug form: Center MISC, Route: MISC, Daily, 03/30/11 9:00:00, Duration: 30 day, Stop date: 04/28/11 9:00:00 Insulin regular 4 unit, 0.04 SUB-Q No Longer Omidvar [facility] [place] mL, Route: Active 2010 Medical SUB-Q, Drug Center form: SOLN, TID-Before Meals, PRN Blood Glucose Results, Start date: 03/30/11 8:05:00, Duration: 30 day, Stop date: 04/29/11 8:04:00 enoxaparin 40 mg, 0.4 mL, SUB-Q No Longer Kandala 03/30[facility] [place] Route: SUB-Q, Active 2010 Medical Drug form: INJ, Center Q24H, Start date: 03/30/11 0:00:00, Duration: 30 day, Stop date: 04/28/11 0:00:00 acetaminophen 650 mg, 2 tab, PO No Longer Kandala [facility] [place] Route: PO, Drug Active 2010 Medical form: TAB, Q4H, Center PRN Pain/Fever, Start date: 03/29/11 23:41:00, Duration: 30 day, Stop date: 04/28/11 23:40:00 docusate 100 mg, 1 cap, PO No Longer Kandala Barrera as Route: PO, Drug Active 2010 Medical form: CAP, BID, Center PRN Constipation, Start date: 03/29/11 23:41:00, Duration: 30 day, Stop date: 04/28/11 23:40:00 morphine 2 mg, 1 mL, IVP No Longer Kandala [place] Sulfate Route: IVP, Active 2010 Medical Drug form: INJ, Center Q3H, PRN Pain Score 4-6, Start date: 03/29/11 23:41:00, Duration: 30 day, Stop date: 04/28/11 23:40:00 acetaminophen-h 2 tab, Route: PO No Longer [facility] 03/30[facility] ydrocodone 325 PO, Drug Form: Active 2010 Wi dical mg-5 mg oral TAB, Q4H, PRN Cente r tablet Pain Score 4-6, Start date: 03/29/11 23:41:00, Duration: 30 day, Stop date: 04/28/11 23:40:00 Lovenox 40 40 mg, 0.4 mL, SUB-Q No Longer [facility] 03/30[facility] [place] mg/0.4 mL SUB-Q, Daily, 4 Active 2010 Medica l subcutaneous mL, Center solution Substitution Allowed, INJ Insulin regular 2 unit, Route: SUB-Q No Longer [facility] 03/30[facility] [facility] SUB-Q, Active 2010 Medical TID-Before Center Meals, PRN Blood Glucose Results, Start date: 03/29/11 22:00:00, Duration: 30 day, Stop date: 04/28/11 21:59:00 metFORmin 1000 1,000 mg, 1 PO Active [facility] 03/30[facility] [place] oral tablet tab, PO, BID, 2010 Med ical 30 tab, Center Substitution Allowed Citracal 250 mg 1 tab, PO, BID, PO Active [facility] 03/30[facility] + D 200 intl 150 tab, 2010 Medical units oral Substitution Center tablet Allowed, Maintenance, TAB Vicodin ES 1 tab, PO, Q6H, PO Active [facility] 03/30[facility] [place] 7.5/750 oral PRN, 40 tab, as 2010 Med ical tablet needed for Center pain, Substitution Allowed, Maintenance aspirin 81 mg 1 tab, PO, PO Active [facility] 03/30[facility] [place] tablet, enteric Daily, 0 tab, 2010 Me dical coated Substitution Center Allowed, ECTAB cilostazol 50 50 mg, 1 tab, PO Active [facility] 03/30[facility] [place] mg oral tablet PO, Daily, 2010 Medica l Substitution Center Allowed pravastatin 40 1 tab, PO, PO Active [facility] 03/30[facility] [place] mg oral tablet Daily, 30 tab, 2010 Me dical Substitution Center Allowed, TAB quinapril 20 mg 1 tab, PO, PO Active [facility] 03/30[facility] [place] oral tablet Daily, 30 tab, 2010 Medic al Substitution Center Allowed, TAB Tradjenta 5 mg 5 mg, 1 tab, Active [facility] 03/30[facility] [place] oral tablet Daily, 2010 Medical Substitution Center Allowed Humulin 70/30 30 unit, SUB-Q, SUB-Q Active [facility] 03/30[facility] Daily, 2010 Medical Substitution Center Allowed Lantus 30 unit, SUB-Q, SUB-Q Active [place] [id number] Bedtime, 2010 Medical Substitution Center Allowed acetaminophen 650 mg, Route: PO No Longer [facility] 03/30[facility] [place] PO, Drug form: Active 2010 Medical TAB, Q4H, PRN Center Pain/Fever, Start date: 03/29/11 21:46:00, Duration: 30 day, Stop date: 04/28/11 21:45:00 acetaminophen-h 1 tab, Route: PO No Longer [facility] 03/30[facility] ydrocodone 325 PO, Drug Form: Active 2010 Wi dical mg-5 mg oral TAB, Q4H, PRN Cente r tablet Pain Score 1-3, Start date: 03/29/11 21:46:00, Duration: 30 day, Stop date: 04/28/11 21:45:00 morphine 2 mg, Route: IVP No Longer [facility] Sulfate IVP, Q3H, PRN Active 2010 [facility] Pain Score 4-6, Center Start date: 03/29/11 21:46:00, Duration: 30 day, Stop date: 04/28/11 21:45:00 docusate 100 mg, Route: PO No Longer [facility] [place] PO, Drug form: Active 2010 Medical CAP, BID, PRN Center Constipation, Start date: 03/29/11 21:46:00, Duration: 30 day, Stop date: 04/28/11 21:45:00 Allergies, Adverse Reactions, Alerts Substance Category Reaction Severity Reaction Status Date Comments S ource type Reported Bactrim Assertion Drug Active [place] allergy Medical Center Immunizations Immunization Date Given Site Status Last Comments Source Updated influenza virus 02/02/2012 completed [facility] vaccine, Medical inactivated Center influenza virus 02/02/2012 Left completed [facility] vaccine, deltoid [facility] inactivated Center Results Order Name Results Value Reference Date Interpretation Comments Shantal rce Range ELECTROLYT AGAP 12.1 10.0 - 11/17 [facility] [place] [facility] 20.0 /2015 [facility] ELECTROLYT eGFR 57 11/17 Result [facility] [place] [facility] Comment: The [facility] eGFR is Center calculated using the CKD-EPI formula. In most young, healthy individuals the eGFR will be >90 mL/min/1.73m2 . The eGFR declines with age. An eGFR of 60-89 may be normal in some populations, particularly the elderly, for whom the CKD-EPI formula has not been extensively validated. Use of the eGFR is not recommended in the following populations:< br/>
Vero viduals with unstable creatinine concentration s, including patients and those with serious co-morbid conditions.<b r/>
Patie nts with extremes in muscle mass or diet.

The data above are obtained from the National Kidney Disease Education Program (NKDEP) which additionally recommends that when the eGFR is used in patients with extremes of body mass index for purposes of drug dosing, the eGFR should be multiplied by the estimated BMI. ELECTROLYT Sodium Lvl 138 135 - 145 11/17 [facility] ELECTROLYT Creatinine 1.22 0.50 - 11/17 [facility] [place] [facility] Lvl 1.40 /2015 [facility] ELECTROLYT BUN 34 7 - 22 11/17 [facility] ELECTROLYT Glucose Lvl 353 70 - 99 11/17 [facility] [place] [facility] ELECTROLYT Calcium Lvl 9.0 8.5 - 10.5 11/17 [place] [facility] ELECTROLYT CO2 26 24 - 32 11/17 [facility] ELECTROLYT Chloride Lvl 105 95 - 109 11/17 [place] [facility] ELECTROLYT Potassium 5.1 3.5 - 5.1 11/17 [facility] HEMATOLOGY Monocytes 8.4 2.0 - 12.0 11/17 2015 [facility] HEMATOLOGY Basophils 0.4 0.0 - 1.0 11/17 [facility] HEMATOLOGY Eosinophils 0.1 0.0 - 0.5 11/17 [place] # /2015 [facility] HEMATOLOGY Segs-Bands # 5.1 1.5 - 8.1 11/17 [place] /2015 [facility] HEMATOLOGY Monocytes # 0.7 0.0 - 0.8 11/17 [place] [facility] HEMATOLOGY Lymphocytes 2.5 1.0 - 5.5 11/17 [place] # /2015 [facility] HEMATOLOGY Segs 60.6 45.0 - 11/17 [place] 75.0 /2015 [facility] HEMATOLOGY Eosinophils 1.4 0.0 - 4.0 11/17 a s [facility] HEMATOLOGY Lymphocytes 29.2 20.0 - 11/17 [place] 40.0 /2015 [facility] HEMATOLOGY D-Dimer 0.82 11/17 [facility] HEMATOLOGY PTT 30.3 22.9 - 11/17 [place] 35.8 /2015 [facility] HEMATOLOGY PT 13.7 12.0 - 11/17 [place] 14.7 /2015 [facility] HEMATOLOGY INR 1.02 0.85 - 11/17 [place] 1.17 [facility] HEMATOLOGY TEG Data See Note 11/17 [facility] (11/18/15 4:50 PM) [facility] HEMATOLOGY Coag Index -0.2 -3.0-3.0 - 11/17 [facility] 3.0 [facility] HEMATOLOGY Max Amp 65.8 50.0 - 11/17 [place] 70.0 [facility] HEMATOLOGY K-time 2.3 1.0 - 3.0 11/17 [facility] HEMATOLOGY G-value 9.6 4.5 - 11.0 11/17 [facility] HEMATOLOGY Angle 59.4 53.0 - 11/17 [place] 72.0 [facility] HEMATOLOGY Ly30 0.0 0.0 - 7.5 11/17 [facility] HEMATOLOGY R-time 6.2 5.0 - 10.0 11/17 [facility] HEMATOLOGY TEG Interp Thrombelas 11/17 [place] [facility] are essentiall y within or close to reference ranges. CPT:29783 HEMATOLOGY MPV 8.1 7.4 - 10.4 11/17 [facility] HEMATOLOGY Platelet 241 133 - 450 11/17 [facility] HEMATOLOGY RDW 13.1 11.5 - 11/17 [facility] 14.5 /2015 [facility] HEMATOLOGY WBC 8.5 3.7 - 10.4 11/17 [facility] HEMATOLOGY Hct 33.8 42.0 - 11/17 [place] 54.0 /2015 [facility] HEMATOLOGY Hgb 11.3 14.0 - 11/17 [place] 18.0 /2015 [facility] HEMATOLOGY RBC 3.87 4.70 - 11/17 [place] 6.10 /2015 [facility] HEMATOLOGY MCHC 33.6 32.0 - 11/17 [place] 36.0 /2015 [facility] HEMATOLOGY MCH 29.3 27.0 - 11/17 31.0 /2015 [facility] HEMATOLOGY MCV 87.4 80.0 - 11/17 [facility] 94.0 [facility] SPECIAL Hgb A1C 10.8 <=5.6 % 11/17 [facility] CHEMISTRY [facility] CHEM PANEL Magnesium 2.1 1.8 - 2.4 06/04 [facility] ELECTROLYT AGAP 12.4 10.0 - 06/04 [facility] ES 20.0 [facility] ELECTROLYT Sodium Lvl 141 135 - 145 06/04 [facility] ELECTROLYT Potassium 4.4 3.5 - 5.1 06/04 [facility] [place] [facility] Lvl [facility] ELECTROLYT CO2 25 24 - 32 06/04 [facility] ELECTROLYT Calcium Lvl 8.1 8.5 - 10.5 06/04 [place] [facility] ELECTROLYT Chloride Lvl 108 95 - 109 06/04 [place] [facility] ELECTROLYT BUN 18 7 - 22 06/04 [facility] ELECTROLYT Creatinine 1.03 0.50 - 06/04 [facility] ES Lvl 1.40 /2015 [facility] ELECTROLYT Glucose Lvl 90 70 - 99 06/04 [facility] [place] [facility] ELECTROLYT eGFR 70 06/04 Result [facility] Comment: The Medical eGFR is Center calculated using the CKD-EPI formula. In most young, healthy individuals the eGFR will be >90 mL/min/1.73m2 . The eGFR declines with age. An eGFR of 60-89 may be normal in some populations, particularly the elderly, for whom the CKD-EPI formula has not been extensively validated. Use of the eGFR is not recommended in the following populations:< br/>
Vero viduals with unstable creatinine concentration s, including patients and those with serious co-morbid conditions.<b r/>
Patie nts with extremes in muscle mass or diet.

The data above are obtained from the National Kidney Disease Education Program (NKDEP) which additionally recommends that when the eGFR is used in patients with extremes of body mass index for purposes of drug dosing, the eGFR should be multiplied by the estimated BMI. HEMATOLOGY PTT 35.6 22.9 - 06/04 [place] 35.8 /2015 [facility] HEMATOLOGY PT 14.3 12.0 - 06/04 [place] 14.7 /2015 [facility] HEMATOLOGY INR 1.08 0.85 - 06/04 [place] 1.17 /2015 [facility] HEMATOLOGY WBC 8.5 3.7 - 10.4 06/04 [facility] HEMATOLOGY RBC 2.78 4.70 - 06/04 [place] 6.10 /2015 [facility] HEMATOLOGY Hgb 8.3 14.0 - 06/04 [place] 18.0 [facility] HEMATOLOGY Hct 25.0 42.0 - 06/04 [place] 54.0 /2015 [facility] HEMATOLOGY MCH 29.9 27.0 - 06/04 [place] 31.0 /2015 [facility] HEMATOLOGY MCHC 33.3 32.0 - 06/04 [place] 36.0 /2015 [facility] HEMATOLOGY RDW 16.1 11.5 - 06/04 [place] 14.5 /2015 [facility] HEMATOLOGY Platelet 350 133 - 450 06/04 [facility] HEMATOLOGY MCV 89.9 80.0 - 06/04 [place] 94.0 [facility] HEMATOLOGY MPV 7.3 7.4 - 10.4 06/04 [facility] HEMATOLOGY Monocytes 5.6 2.0 - 12.0 06/04 [facility] HEMATOLOGY Eosinophils 1.8 0.0 - 4.0 06/04 [place] [facility] HEMATOLOGY Basophils 0.5 0.0 - 1.0 06/04 [facility] HEMATOLOGY Segs-Bands # 5.2 1.5 - 8.1 06/04 [place] /2015 [facility] HEMATOLOGY Segs 61.9 45.0 - 06/04 [facility] [place] 75.0 /2015 [facility] HEMATOLOGY Lymphocytes 30.2 20.0 - 06/04 [place] 40.0 [facility] HEMATOLOGY Monocytes # 0.5 0.0 - 0.8 06/04 [facility] HEMATOLOGY Eosinophils 0.2 0.0 - 0.5 06/04 [place] # /2015 [facility] HEMATOLOGY Lymphocytes 2.6 1.0 - 5.5 06/04 [facility] # [facility] CHEM PANEL Magnesium 1.9 1.8 - 2.4 06/03 [facility] CHEM PANEL eGFR 83 06/03 Result Comment: The Medical eGFR is Center calculated using the CKD-EPI formula. In most young, healthy individuals the eGFR will be >90 mL/min/1.73m2 . The eGFR declines with age. An eGFR of 60-89 may be normal in some populations, particularly the elderly, for whom the CKD-EPI formula has not been extensively validated. Use of the eGFR is not recommended in the following populations:< br/>
Vero viduals with unstable creatinine concentration s, including patients and those with serious co-morbid conditions.<b r/>
Patie nts with extremes in muscle mass or diet.

The data above are obtained from the National Kidney Disease Education Program (NKDEP) which additionally recommends that when the eGFR is used in patients with extremes of body mass index for purposes of drug dosing, the eGFR should be multiplied by the estimated BMI. CHEM PANEL Creatinine 0.88 0.50 - 06/03 [facility] Lvl 1.40 [facility] CHEM PANEL BUN 13 7 - 22 06/03 [facility] CHEM PANEL Glucose Lvl 64 70 - 99 06/03 [facility] CHEM PANEL Calcium Lvl 8.3 8.5 - 10.5 06/03 [facility] CHEM PANEL Sodium Lvl 140 135 - 145 06/03 [facility] CHEM PANEL Chloride Lvl 101 95 - 109 06/03 [facility] CHEM PANEL Potassium 3.8 3.5 - 5.1 06/03 [facility] CHEM PANEL AGAP 11.8 10.0 - 06/03 20.0 Medical Center CHEM PANEL CO2 31 24 - 32 06/03 [facility] HEMATOLOGY RBC 2.62 4.70 - 06/03 [place] 6.10 /2015 [facility] HEMATOLOGY Hgb 7.9 14.0 - 06/03 [place] 18.0 [facility] HEMATOLOGY WBC 9.7 3.7 - 10.4 06/03 [facility] HEMATOLOGY Hct 23.3 42.0 - 06/03 [place] 54.0 /2015 [facility] HEMATOLOGY MCH 30.1 27.0 - 06/03 [place] 31.0 [facility] HEMATOLOGY MCV 88.8 80.0 - 06/03 [place] 94.0 /2015 [facility] HEMATOLOGY Platelet 388 133 - 450 06/03 [facility] HEMATOLOGY MPV 7.3 7.4 - 10.4 06/03 [facility] HEMATOLOGY RDW 16.0 11.5 - 06/03 [place] 14.5 [facility] HEMATOLOGY MCHC 33.9 32.0 - 06/03 [place] 36.0 [facility] CHEM PANEL Magnesium 1.9 1.8 - 2.4 06/02 [facility] ELECTROLYT AGAP 10.9 10.0 - 06/02 [place] ES 20.0 [facility] ELECTROLYT eGFR 82 06/02 [facility] Comment: The Medical eGFR is Center calculated using the CKD-EPI formula. In most young, healthy individuals the eGFR will be >90 mL/min/1.73m2 . The eGFR declines with age. An eGFR of 60-89 may be normal in some populations, particularly the elderly, for whom the CKD-EPI formula has not been extensively validated. Use of the eGFR is not recommended in the following populations:< br/>
Vero viduals with unstable creatinine concentration s, including patients and those with serious co-morbid conditions.<b r/>
Patie nts with extremes in muscle mass or diet.

The data above are obtained from the National Kidney Disease Education Program (NKDEP) which additionally recommends that when the eGFR is used in patients with extremes of body mass index for purposes of drug dosing, the eGFR should be multiplied by the estimated BMI. ELECTROLYT Chloride Lvl 106 95 - 109 06/02 [place] [facility] ELECTROLYT Calcium Lvl 8.5 8.5 - 10.5 06/02 [place] ES [facility] ELECTROLYT CO2 26 24 - 32 06/02 ES [facility] ELECTROLYT BUN 14 7 - 22 06/02 [place] ES [facility] ELECTROLYT Glucose Lvl 109 70 - 99 06/02 [place] ES /2015 [facility] ELECTROLYT Creatinine 0.89 0.50 - 06/02 [facility] ES Lvl 1.40 /2015 [facility] ELECTROLYT Potassium 3.9 3.5 - 5.1 06/02 [place] ES Lvl /2015 [facility] ELECTROLYT Sodium Lvl 139 135 - 145 06/02 ES /2015 Medical [place] HEMATOLOGY MCHC 33.6 32.0 - 06/02 [place] 36.0 [facility] HEMATOLOGY MCH 29.8 27.0 - 06/02 [place] 31.0 [facility] HEMATOLOGY MCV 88.7 80.0 - 06/02 [place] 94.0 /2015 [facility] HEMATOLOGY RDW 15.6 11.5 - 06/02 [place] 14.5 /2015 [facility] HEMATOLOGY MPV 6.9 7.4 - 10.4 06/02 /2015 [facility] HEMATOLOGY Platelet 367 133 - 450 06/02 /2015 [facility] HEMATOLOGY Hct 25.7 42.0 - 06/02 [place] 54.0 [facility] HEMATOLOGY Hgb 8.6 14.0 - 06/02 [place] 18.0 [facility] HEMATOLOGY RBC 2.90 4.70 - 06/02 [place] 6.10 [facility] HEMATOLOGY WBC 8.4 3.7 - 10.4 06/02 [facility] HEMATOLOGY Segs-Bands # 5.2 1.5 - 8.1 06/02 [place] /2015 Medical Center HEMATOLOGY Eosinophils 0.1 0.0 - 0.5 06/02 [place] # /2015 [facility] HEMATOLOGY Monocytes # 0.5 0.0 - 0.8 06/02 [place] /2015 [facility] HEMATOLOGY Lymphocytes 2.6 1.0 - 5.5 06/02 [place] # /2015 [facility] HEMATOLOGY Basophils 0.4 0.0 - 1.0 06/02 /2015 [facility] HEMATOLOGY Lymphocytes 30.7 20.0 - 06/02 [place] 40.0 /2016 [facility] HEMATOLOGY Eosinophils 1.1 0.0 - 4.0 06/02 [place] /2015 [facility] HEMATOLOGY Monocytes 5.9 2.0 - 12.0 06/02 [place] /2015 Medical Center HEMATOLOGY Segs 61.9 45.0 - 06/02 [place] 75.0 Medical Center BLOOD BANK ABO/Rh B POS 06/01 [place] RESULTS /2015 Medical Center BLOOD BANK Antibody Negative 06/01 [facility] RESULTS Scrn (06/01/15 5:00 AM) [facility] HEMATOLOGY POC 197 06/01 [place] Activated /2015 [facility] Time HEMATOLOGY POC 284 05/31 [place] Activated /2015 [facility] Time CHEM PANEL Phosphorus 3.8 2.5 - 4.5 05/31 [place] /2015 Medical Center HEMATOLOGY PT 14.4 12.0 - 05/31 [place] 14.7 /2015 Medical Center HEMATOLOGY PTT 70.8 22.9 - 05/31 [place] 35.8 /2015 Medical Center HEMATOLOGY INR 1.09 0.85 - 05/31 [place] 1. Medical Center HEMATOLOGY Segs-Bands # 3.9 1.5 - 8.1 05/31 [place] /2015 Medical Center HEMATOLOGY Lymphocytes 2.5 1.0 - 5.5 05/31 [place] # /2015 [facility] HEMATOLOGY Monocytes # 0.5 0.0 - 0.8 05/31 [place] /2015 [facility] HEMATOLOGY Eosinophils 0.1 0.0 - 0.5 05/31 [place] # /2016 [facility] HEMATOLOGY Lymphocytes 35.4 20.0 - 05/31 [place] 40.0 /2016 Medical Center HEMATOLOGY Monocytes 6.7 2.0 - 12.0 05/31 [place] [facility] HEMATOLOGY Eosinophils 1.7 0.0 - 4.0 05/31 [place] /2016 [facility] HEMATOLOGY Basophils 0.7 0.0 - 1.0 05/31 [place] /2016 Medical Center HEMATOLOGY Segs 55.5 45.0 - 05/31 [place] 75.0 Medical Center CHEM PANEL Phosphorus 3.5 2.5 - 4.5 05/30 [place] /2016 Medical Center HEMATOLOGY INR 1.09 0.85 - 05/30 [place] 1.17 2016 Medical Center HEMATOLOGY PTT 70.5 22.9 - 05/30 [place] 35.8 /2016 Medical Center HEMATOLOGY PT 14.4 12.0 - 05/30 [facility] [place] 14.7 [facility] CARDIAC proBNP 6746 0 - 450 05/29 [facility] ENZYMES [facility] CHEM PANEL Phosphorus 3.0 2.5 - 4.5 05/29 [facility] HEMATOLOGY Plt Morph Normal 05/27 [facility] (05/27/15 3:27 AM) [facility] HEMATOLOGY Atypical 0.0 <=0.0 % 05/27 [facility] Lymphs [facility] HEMATOLOGY RBC Morph Normal 05/27 [facility] (05/27/15 3:27 AM) /2015 [facility] HEMATOLOGY Bands 0.0 0.0 - 11.0 05/27 [facility] HEMATOLOGY Myelocytes 1.0 <=0.0 % 05/27 [facility] CHEM PANEL A/G Ratio 0.5 0.7 - 1.6 05/[address] CHEM PANEL Globulin 4.6 2.0 - 4.0 05/[address] CHEM PANEL Bili 0.4 0.0 - 1.0 05/25 [facility] Indirect [facility] CHEM PANEL Bili Direct 0.2 0.0 - 0.3 05/25 [facility] CHEM PANEL Bili Total 0.6 0.2 - 1.3 05/25 [facility]2015 [facility] CHEM PANEL Alk Phos 216 39 - 136 05/[address] CHEM PANEL AST 28 0 - 37 05/[address] CHEM PANEL ALT 18 0 - 65 05/[address] CHEM PANEL Albumin Lvl 2.5 3.5 - 5.0 05/25 [place] [facility] CHEM PANEL Total 7.1 6.4 - 8.4 05/25 [facility] Protein [facility] CHEM PANEL Ammonia 29.0 <=45.0 05/25 [facility] uMol/L /2015 [facility] URINE AND UA RBC <1 0 - 2 05/25 [facility] STOOL [facility] URINE AND UA Bacteria Occasional None Seen 05/25 [place] /HPF /HPF /2015 [facility] URINE AND UA Sq Epi None Seen 05/25 [facility] STOOL /2015 [facility] URINE AND UA Bili Negative Negative 05/25 [facility] STOOL *NA* /2015 [facility] (05/25/15 1:13 PM) Center URINE AND UA Blood Trace Negative 05/25 [facility] *ABN* /2015 Medical (05/25/15 1:13 PM) Center URINE AND UA Nitrite Negative Negative 05/25 [facility] (05/25/15 1:13 PM) /2015 [facility] URINE AND UA <=1.0 0.1 - 1.0 05/25 [facility] Urobilinogen mg/dL /2015 [facility] URINE AND UA Leuk Est Negative Negative 05/25 [facility] (05/25/15 1:13 PM) /2015 [facility] URINE AND UA WBC 1 0 - 5 05/25 [facility] /2015 [facility] URINE AND UA Protein 30 mg/dL Negative 05/25 [facility] STOOL mg/dL /2015 [facility] URINE AND UA Glucose 70 mg/dL Negative 05/25 [facility] mg/dL [facility] URINE AND UA Ketones Negative Negative 05/25 [facility] mg/dL mg/dL /2015 [facility] URINE AND UA Color Yellow Yellow 05/25 [facility] *NA* /2015 [facility] (05/25/15 1:13 PM) [place] URINE AND UA Turbidity Clear Clear 05/25 [facility] (05/25/15 1:13 PM) [facility] URINE AND UA Spec Grav 1.009 <=1.030 05/25 [facility] URINE AND UA pH 7.0 5.0 - 8.0 05/25 [facility] URINE AND Occult Bld Negative Negative 05/24 [facility] (05/24/15 4:10 PM) /2015 [facility] HEMATOLOGY Sed Rate 90 0 - 15 05/24 [facility] ANEMIA TIBC 296 228 - 428 05/23 [facility] STUDY [facility] ANEMIA Iron 37 45 - 160 05/23 [facility] ANEMIA % Satur Fe 12 12 - 57 05/23 [facility] STUDY [facility] ANEMIA UIBC 259 110 - 370 05/23 [facility] STUDY [facility] ANEMIA Ferritin Lvl 808 22 - 275 05/23 [facility] CARDIAC proBNP 9413 0 - 450 05/23 [facility] ENZYMES [facility] HEMATOLOGY Sed Rate 75 0 - 15 05/23 [facility] IMMUNOLOGY C-REACTIVE 263.0 <=2.9 mg/L 05/23 [facility] [place] PR[place] /2015 [facility] HEMATOLOGY POC 225 05/21 [facility] Activated [facility] Time CARDIAC proBNP 3996 0 - 450 05/21 [facility] ENZYMES [facility] CHEM PANEL Bili Total 0.6 0.2 - 1.3 05/21 [place] /2015 [facility] CHEM PANEL Bili Direct 0.2 0.0 - 0.3 05/21 [facility] CHEM PANEL AST 43 0 - 37 05/21 [place] [facility] CHEM PANEL Alk Phos 128 39 - 136 05/21 [place] [facility] CHEM PANEL ALT 22 0 - 65 05/21 [place] /2015 [facility] CHEM PANEL Total 7.7 6.4 - 8.4 05/21 [facility] Protein /2015 [facility] CHEM PANEL Albumin Lvl 3.2 3.5 - 5.0 05/21 [facility] CHEM PANEL Globulin 4.5 2.0 - 4.0 05/21 [facility] CHEM PANEL Bili 0.4 0.0 - 1.0 05/21 [facility] Indirect [facility] CHEM PANEL A/G Ratio 0.7 0.7 - 1.6 05/21 [place] [facility] CHEM PANEL Uric Acid 9.6 3.8 - 8.0 05/21 [place] [facility] IMMUNOLOGY C3 147 88 - 201 05/21 [facility] Complement /2015 [facility] IMMUNOLOGY C4 35 16 - 47 05/21 [facility] Complement /2015 [facility] LIPIDS CHD Risk 2.19 4.00 - 05/21 [facility] 7.30 [facility] LIPIDS VLDL 17 05/21 [facility] LIPIDS LDL 39 <=99 mg/dL 05/21 [facility] (Calculated) [facility] LIPIDS HDL 47 >=61 mg/dL 05/21 [facility] LIPIDS Chol 103 <=199 05/21 [facility] mg/dL [facility] LIPIDS Trig 87 <=149 05/21 [facility] mg/dL [facility] PARATHYROI PTH Intact 40.4 11.1 - 05/21 [facility] D PROFILE 79.5 [facility] SPECIAL Hgb A1C 7.0 <=5.6 % 05/21 [facility] CHEMISTRY /2015 [facility] URINE AND UA <=1.0 0.1 - 1.0 05/21 [facility] STOOL Urobilinogen mg/dL [facility] URINE AND UA Leuk Est Negative Negative 05/21 [facility] (05/20/15 7:58 PM) /2015 Medical [place] URINE AND UA WBC 2 0 - 5 05/21 [facility] URINE AND UA RBC 8 0 - 2 05/21 [facility] URINE AND UA Bacteria Occasional None Seen 05/21 [place] /HPF /HPF [facility] URINE AND UA Hyal Cast 1 0 - 2 05/21 [facility] URINE AND UA Sq Epi None Seen 05/21 [facility] STOOL [facility] URINE AND UA Glucose Negative Negative 05/21 [facility] mg/dL mg/dL [facility] URINE AND UA Ketones 20 mg/dL Negative 05/21 [facility] mg/dL [facility] URINE AND UA Bili Negative Negative 05/21 [facility] *NA* /2015 [facility] (05/20/15 7:58 PM) [place] URINE AND UA Blood Small Negative 05/21 [facility] *ABN* [facility] (05/20/15 7:58 PM) [place] URINE AND UA Nitrite Negative Negative 05/21 [facility] (05/20/15 7:58 PM) [facility] URINE AND UA Protein 30 mg/dL Negative 05/21 [facility] mg/dL [facility] URINE AND UA Color Yellow Yellow 05/21 [facility] *NA* [facility] (05/20/15 7:58 PM) Center URINE AND UA Turbidity Clear Clear 05/21 [facility] (05/20/15 7:58 PM) [facility] [place] URINE AND UA Spec Grav 1.012 <=1.030 05/21 [facility] URINE AND UA pH 5.5 5.0 - 8.0 05/21 [facility] URINE CHEM U Sodium 58 05/21 [facility] URINE CHEM U Protein 51.8 05/21 [facility] URINE CHEM U Potassium 25.9 05/21 [facility] URINE CHEM U Osmolality 510 300 - 800 05/21 [facility] URINE CHEM U Creatinine 78.00 05/21 [facility] URINE CHEM U Chloride 40 05/21 [facility] URINE CHEM U Prot/Creat 0.7 05/21 [facility] URINE CHEM U Eos None Seen None Seen 05/21 [facility] (05/20/15 7:56 PM) [facility] HEMATOLOGY Basophils # 0.1 0.0 - 0.2 05/20 [facility] CHEM PANEL Phosphorus 2.8 2.5 - 4.5 09/11 [facility] CHEM PANEL Magnesium 1.8 1.8 - 2.4 09/11 [facility] Lvl [facility] CHEM PANEL Bili 0.4 0.0 - 1.0 09/11 [facility] Indirect [facility] CHEM PANEL Bili Total 0.5 0.2 - 1.3 09/11 [facility] CHEM PANEL Bili Direct 0.1 0.0 - 0.3 09/11 [facility] CHEM PANEL Alk Phos 123 39 - 136 09/[address] CHEM PANEL AST 14 0 - 37 09/[address] CHEM PANEL Globulin 3.5 2.0 - 4.0 09/11 [facility]2014 [facility] CHEM PANEL Albumin Lvl 3.0 3.5 - 5.0 09/11 [facility] CHEM PANEL Total 6.5 6.4 - 8.4 09/11 [facility] Protein [facility] CHEM PANEL A/G Ratio 0.9 0.7 - 1.6 09/11 [facility]2014 [facility] CHEM PANEL ALT 17 0 - 65 09/[address] CHEM PANEL Calcium Lvl 8.8 8.5 - 10.5 09/11 [facility] CHEM PANEL eGFR 58 09/11 <sup>1</sup>R esult Medical Comment: The [place] eGFR is calculated using the CKD-EPI formula. In most young, healthy individuals the eGFR will be >90 mL/min/1.73m2 . The eGFR declines with age. An eGFR of 60-89 may be normal in some populations, particularly the elderly, for whom the CKD-EPI formula has not been extensively validated. Use of the eGFR is not recommended in the following populations:& lt;br/>
I ndividuals with unstable creatinine concentration s, including patients and those with serious co-morbid conditions.<b r/>
Patie nts with extremes in muscle mass or diet.

The data above are obtained from the National Kidney Disease Education Program (NKDEP) which additionally recommends that when the eGFR is used in patients with extremes of body mass index for purposes of drug dosing, the eGFR should be multiplied by the estimated BMI. CHEM PANEL Potassium 4.7 3.5 - 5.1 09/11 [facility] /2014 [facility] CHEM PANEL CO2 27 24 - 32 09/11 [facility] CHEM PANEL Chloride Lvl 105 95 - 109 09/11 s [facility] CHEM PANEL AGAP 11.7 10.0 - 09/11 [place] 20. [facility] CHEM PANEL Sodium Lvl 139 135 - 145 09/11 [facility] CHEM PANEL Creatinine 1.2 0.5 - 1.4 09/11 [facility] CHEM PANEL BUN 25 7 - 22 09/11 [facility] CHEM PANEL Glucose Lvl 325 70 - 99 09/11 <sup>3</sup>I nterpretive Medical Data: Adult Center reference range values reflect the clinical guidelines
of the [place] [employer]. CHEM PANEL Uric Acid 6.1 3.8 - 8.0 09/10 [facility] PARATHYROI PTH Intact 28.4 11.1 - 09/10 [facility] D PROFILE 79.5 [facility] HEMATOLOGY POC 211 09/10 [facility] Activated /2014 [facility] Time HEMATOLOGY POC 308 09/10 [facility] Activated /2014 [facility] Time BLOOD BANK ABO/Rh B POS 09/10 [facility] RESULTS /2014 [facility] BLOOD BANK Antibody Negative 09/10 [facility] RESULTS Scrn (09/10/14 8:19 AM) /2014 [facility] CHEM PANEL Magnesium 1.8 1.8 - 2.4 09/10 [facility] Lv [facility] ELECTROLYT AGAP 15.3 10.0 - 09/10 [facility] ES 20. [facility] ELECTROLYT eGFR 58 09/10 <sup>2</sup>R [facility] s esult Medical Comment: The Center eGFR is calculated using the CKD-EPI formula. In most young, healthy individuals the eGFR will be >90 mL/min/1.73m2 . The eGFR declines with age. An eGFR of 60-89 may be normal in some populations, particularly the elderly, for whom the CKD-EPI formula has not been extensively validated. Use of the eGFR is not recommended in the following populations:& lt;br/>
I ndividuals with unstable creatinine concentration s, including patients and those with serious co-morbid conditions.<b r/>
Patie nts with extremes in muscle mass or diet.

The data above are obtained from the National Kidney Disease Education Program (NKDEP) which additionally recommends that when the eGFR is used in patients with extremes of body mass index for purposes of drug dosing, the eGFR should be multiplied by the estimated BMI. ELECTROLYT Calcium Lvl 9.2 8.5 - 10.5 09/10 [facility] as [facility] ELECTROLYT Chloride Lvl 104 95 - 109 09/10 [facility] ELECTROLYT CO2 24 24 - 32 09/10 [facility] ELECTROLYT Sodium Lvl 139 135 - 145 09/10 [facility] ELECTROLYT Potassium 4.3 3.5 - 5.1 09/10 [facility] ELECTROLYT Glucose Lvl 144 70 - 99 09/10 <sup>4</sup>I [facility] nterpretive Medical Data: Adult Center reference range values reflect the clinical guidelines
of the [place] [employer]. ELECTROLYT Creatinine 1.2 0.5 - 1.4 09/10 [facility] ELECTROLYT BUN 31 7 - 22 09/10 [facility] HEMATOLOGY PT 14.3 12.0 - 09/10 [facility] 7 [facility] HEMATOLOGY PTT 29.7 22.9 - 09/10 <sup>6[place]sup[place] 35.8 /2014 nterpretive Medical Data: Heparin Center Therapeutic Range: 57 - 92 Seconds HEMATOLOGY INR 1.10 0.85 - 09/10 <sup>5</sup[place] 1.17 /2014 nterpretive Medical Data: Center RECOMMENDED RANGES FOR PROTIME INR:
2.0-3.0 for most medical and surgical thromboemboli c states.
2.5-3.5 for artificial heart valves and recurrent embolism.<br/ >
INR SHOULD BE USED ONLY FOR PATIENTS ON STABLE ANTICOAGULANT THERAPY. HEMATOLOGY MCH 29.4 27.0 - 09/10 [place] 31.0 [facility] HEMATOLOGY RDW 12.8 11.5 - 09/10 14.5 [facility] HEMATOLOGY MCHC 33.3 32.0 - 09/10 [place] 36.0 /2014 [facility] HEMATOLOGY MPV 7.6 7.4 - 10.4 09/10 [facility] HEMATOLOGY Platelet 274 133 - 450 09/10 [facility] HEMATOLOGY WBC 9.3 3.7 - 10.4 09/10 [facility] HEMATOLOGY Hgb 12.8 14.0 - 09/10 [place] 18.0 [facility] HEMATOLOGY Hct 38.3 42.0 - 09/10 [place] 54.0 [facility] HEMATOLOGY RBC 4.34 4.70 - 09/10 [place] 6.10 [facility] HEMATOLOGY MCV 88.3 80.0 - 09/10 [place] 94.0 [facility] HEMATOLOGY Eosinophils 0.2 0.0 - 0.5 09/10 [place] # /2014 [facility] HEMATOLOGY Monocytes # 0.7 0.0 - 0.8 09/10 a s [facility] HEMATOLOGY Basophils # 0.1 0.0 - 0.2 09/10 a s [facility] HEMATOLOGY Eosinophils 2.6 0.0 - 4.0 09/10 [place] [facility] HEMATOLOGY Basophils 0.7 0.0 - 1.0 09/10 [facility] HEMATOLOGY Lymphocytes 2.5 1.0 - 5.5 09/10 [place] # [facility] HEMATOLOGY Segs-Bands # 5.8 1.5 - 8.1 09/10 [facility] HEMATOLOGY Lymphocytes 26.6 20.0 - 09/10 [place] 40.0 [facility] HEMATOLOGY Segs 62.3 45.0 - 09/10 [place] 75.0 [facility] HEMATOLOGY Monocytes 7.8 2.0 - 12.0 09/10 [facility] LIPIDS CHD Risk 3.48 4.00 - 09/10 [place] 7.30 [facility] LIPIDS VLDL 28 09/10 [facility] LIPIDS LDL 76 <=99 mg/dL 09/10 [facility] (Calculated) [facility] LIPIDS HDL 42 >=61 mg/dL 09/10 [facility] LIPIDS Trig 142 <=149 09/10 [facility] mg/dL [facility] LIPIDS Chol 146 <=199 09/10 [facility] mg/dL [facility] CHEM PANEL eGFR 58 05/13 <sup>1</sup>R [facility] esult Medical Comment: The Center eGFR is calculated using the CKD-EPI formula. In most young, healthy individuals the eGFR will be >90 mL/min/1.73m2 . The eGFR declines with age. An eGFR of 60-89 may be normal in some populations, particularly the elderly, for whom the CKD-EPI formula has not been extensively validated. Use of the eGFR is not recommended in the following populations:& lt;br/>
I ndividuals with unstable creatinine concentration s, including patients and those with serious co-morbid conditions.<b r/>
Patie nts with extremes in muscle mass or diet.

The data above are obtained from the National Kidney Disease Education Program (NKDEP) which additionally recommends that when the eGFR is used in patients with extremes of body mass index for purposes of drug dosing, the eGFR should be multiplied by the estimated BMI. CHEM PANEL CO2 24 24 - 32 05/13 [facility] CHEM PANEL Calcium Lvl 8.8 8.5 - 10.5 05/13 [facility] CHEM PANEL Potassium 4.0 3.5 - 5.1 05/13 [facility] CHEM PANEL Chloride Lvl 106 95 - 109 05/13 [facility] CHEM PANEL BUN 25 7 - 22 05/13 [facility] CHEM PANEL Glucose Lvl 216 70 - 99 05/13 <sup>3</sup>I nterpretive Medical Data: Adult Center reference range values reflect the clinical guidelines
of the [place] [employer]. CHEM PANEL Sodium Lvl 139 135 - 145 05/13 [facility] CHEM PANEL Creatinine 1.2 0.5 - 1.4 05/13 [facility] CHEM PANEL AGAP 13.0 10.0 - 05/13 20.0 Medical Center HEMATOLOGY Lymphocytes 21.0 20.0 - 05/13 [place] 40.0 /2013 Medical Center HEMATOLOGY Basophils 0.5 0.0 - 1.0 05/13 [facility] HEMATOLOGY Monocytes 11.5 2.0 - 12.0 05/13 [facility] HEMATOLOGY Eosinophils 0.7 0.0 - 4.0 05/13 a s /2013 Medical Center HEMATOLOGY Segs 66.3 45.0 - 05/13 [place] 75.0 /2013 [facility] HEMATOLOGY Lymphocytes 1.5 1.0 - 5.5 05/13 [place] # /2013 [facility] HEMATOLOGY Segs-Bands # 4.6 1.5 - 8.1 05/13 [facility] HEMATOLOGY Eosinophils 0.1 0.0 - 0.5 05/13 [place] # /2013 [facility] HEMATOLOGY Monocytes # 0.8 0.0 - 0.8 05/13 s /2013 Medical Center HEMATOLOGY MCH 30.6 27.0 - 05/13 [place] 31.0 Medical Center HEMATOLOGY MCHC 35.1 32.0 - 05/13 [place] 36.0 [facility] HEMATOLOGY MCV 87.2 80.0 - 05/13 [place] 94.0 /2013 Medical Center HEMATOLOGY MPV 8.0 7.4 - 10.4 05/13 [facility] HEMATOLOGY Platelet 235 133 - 450 05/13 [facility] HEMATOLOGY RDW 12.7 11.5 - 05/13 [place] 14.5 /2013 [facility] HEMATOLOGY Hgb 11.5 14.0 - 05/13 [place] 18.0 [facility] HEMATOLOGY Hct 32.9 42.0 - 05/13 [place] 54.0 [facility] HEMATOLOGY RBC 3.77 4.70 - 05/13 [place] 6.10 Medical Center HEMATOLOGY WBC 7.0 3.7 - 10.4 05/13 [facility] HEMATOLOGY POC 178 05/13 Activated [facility] Time HEMATOLOGY POC 257 05/13 [facility] Time CHEM PANEL Bili 0.3 0.0 - 1.0 05/12 Indirect [facility] CHEM PANEL Bili Total 0.4 0.2 - 1.3 05/12 [facility] CHEM PANEL Bili Direct 0.1 0.0 - 0.3 05/12 [facility] CHEM PANEL A/G Ratio 0.8 0.7 - 1.6 05/12 [facility] CHEM PANEL Alk Phos 158 39 - 136 05/12 [facility] CHEM PANEL AST 23 0 - 37 05/12 [facility] CHEM PANEL ALT 30 0 - 65 05/12 [facility] CHEM PANEL Albumin Lvl 3.6 3.5 - 5.0 05/12 [facility] CHEM PANEL Globulin 4.4 2.0 - 4.0 05/12 [facility] CHEM PANEL Total 8.0 6.4 - 8.4 05/12 [facility] CHEM PANEL Phosphorus 3.3 2.5 - 4.5 05/12 [facility] CHEM PANEL Magnesium 1.8 1.8 - 2.4 05/12 [facility] CHEM PANEL eGFR 65 05/12 <sup>2</sup>R [facility] Comment: The Center eGFR is calculated using the CKD-EPI formula. In most young, healthy individuals the eGFR will be >90 mL/min/1.73m2 . The eGFR declines with age. An eGFR of 60-89 may be normal in some populations, particularly the elderly, for whom the CKD-EPI formula has not been extensively validated. Use of the eGFR is not recommended in the following populations:& lt;br/>
I ndividuals with unstable creatinine concentration s, including patients and those with serious co-morbid conditions.<b r/>
Patie nts with extremes in muscle mass or diet.

The data above are obtained from the National Kidney Disease Education Program (NKDEP) which additionally recommends that when the eGFR is used in patients with extremes of body mass index for purposes of drug dosing, the eGFR should be multiplied by the estimated BMI. CHEM PANEL Creatinine 1.1 0.5 - 1.4 05/12 [facility] CHEM PANEL Sodium Lvl 136 135 - 145 05/12 [facility] CHEM PANEL Potassium 4.3 3.5 - 5.1 05/12 [facility] CHEM PANEL CO2 27 24 - 32 05/12 [facility] CHEM PANEL Chloride Lvl 101 95 - 109 05/12 [facility] CHEM PANEL Calcium Lvl 9.4 8.5 - 10.5 05/12 [facility] CHEM PANEL BUN 23 7 - 22 05/12 [facility] CHEM PANEL Glucose Lvl 185 70 - 99 05/12 <sup>4</sup>I nterpretive Medical Data: Adult Center reference range values reflect the clinical guidelines
of the [place] [employer]. CHEM PANEL AGAP 12.3 10.0 - 05/12 20.0 [facility] HEMATOLOGY Basophils # 0.1 0.0 - 0.2 05/12 [facility] HEMATOLOGY Eosinophils 0.1 0.0 - 0.5 05/12 [facility] HEMATOLOGY Monocytes # 0.7 0.0 - 0.8 05/12 [facility] HEMATOLOGY Lymphocytes 1.3 1.0 - 5.5 05/12 [facility] HEMATOLOGY Basophils 0.6 0.0 - 1.0 05/12 [facility] HEMATOLOGY Segs-Bands # 6.5 1.5 - 8.1 05/12 [facility] HEMATOLOGY Eosinophils 1.1 0.0 - 4.0 05/12 [facility] HEMATOLOGY Monocytes 7.8 2.0 - 12.0 05/12 [facility] HEMATOLOGY Lymphocytes 15.3 20.0 - 05/12 40.0 [facility] HEMATOLOGY Segs 75.2 45.0 - 05/12 75.0 [facility] HEMATOLOGY MPV 8.1 7.4 - 10.4 05/12 [facility] HEMATOLOGY Platelet 253 133 - 450 05/12 [facility] HEMATOLOGY MCH 29.0 27.0 - 05/12 31.0 [facility] HEMATOLOGY RDW 12.9 11.5 - 05/12 14. [facility] HEMATOLOGY MCHC 33.4 32.0 - 05/12 36.0 [facility] HEMATOLOGY Hgb 12.3 14.0 - 05/12 18.0 Medical Center HEMATOLOGY RBC 4.23 4.70 - 05/12 [place] 6.10 [facility] Center HEMATOLOGY MCV 86.8 80.0 - 05/12 [place] 94.0 /2013 [facility] HEMATOLOGY Hct 36.7 42.0 - 05/12 [place] 54.0 /2013 [facility] HEMATOLOGY WBC 8.6 3.7 - 10.4 05/12 [facility] HEMATOLOGY PT 14.2 12.0 - 05/12 [place] 14.7 Medical Center HEMATOLOGY PTT 32.2 22.9 - 05/12 <sup>6</sup>I [place] 35.8 /2013 nterpretive Medical Data: Heparin Center Therapeutic Range: 57 - 92 Seconds HEMATOLOGY INR 1.09 0.85 - 05/12 <sup>5</sup>I [place] 1.17 nterpretive Medical Data: Center RECOMMENDED RANGES FOR PROTIME INR:
2.0-3.0 for most medical and surgical thromboemboli c states.
2.5-3.5 for artificial heart valves and recurrent embolism.<br/ >
INR SHOULD BE USED ONLY FOR PATIENTS ON STABLE ANTICOAGULANT THERAPY. LIPIDS CHD Risk 2.87 4.00 - 05/12 [place] 7. [facility] LIPIDS VLDL 19 05/12 [facility] LIPIDS LDL 69 <=99 mg/dL 05/12 [place] (Calculated) [facility] LIPIDS HDL 47 >=61 mg/dL 05/12 [facility] LIPIDS Trig 96 <=149 05/12 [facility] mg/dL [facility] LIPIDS Chol 135 <=199 05/12 [place] mg/dL /2013 Medical Center BLOOD BANK Antibody Negative 05/12 [facility] RESULTS Scrn (05/12/14 11:15 AM) /2013 [facility] BLOOD BANK ABO/Rh B POS 05/12 [place] RESULTS /2013 Medical Center HEMATOLOGY POC 185 01/22 [place] Activated /2013 [facility] Time HEMATOLOGY POC 293 01/22 [place] Activated /2013 [facility] Time BLOOD BANK Antibody Negative 01/22 [facility] RESULTS Scrn (01/22/14 6:15 AM) /2013 [facility] BLOOD BANK ABO/Rh B POS 01/22 [place] RESULTS /2013 Medical Center LIPIDS VLDL 36 01/22 Medical Center LIPIDS LDL 85 <=99 mg/dL 01/22 [facility] (Calculated) [facility] LIPIDS CHD Risk 3.88 4.00 - 01/22 [facility] 7.30 [facility] LIPIDS Chol 163 <=199 01/22 [facility] mg/dL [facility] LIPIDS HDL 42 >=61 mg/dL 01/22 [facility] LIPIDS Trig 181 <=149 01/22 [facility] mg/dL [facility] CHEM PANEL Magnesium 1.9 1.8 - 2.4 01/22 [facility] ELECTROLYT AGAP 12.4 10.0 - 01/22 [facility] ES 20.0 [facility] ELECTROLYT eGFR 53 01/22 <sup>1</sup>[place] [facility] Comment: The Center eGFR is calculated using the CKD-EPI formula. In most young, healthy individuals the eGFR will be >90 mL/min/1.73m2 . The eGFR declines with age. An eGFR of 60-89 may be normal in some populations, particularly the elderly, for whom the CKD-EPI formula has not been extensively validated. Use of the eGFR is not recommended in the following populations:& lt;br/>
I ndividuals with unstable creatinine concentration s, including patients and those with serious co-morbid conditions.<b r/>
Patie nts with extremes in muscle mass or diet.

The data above are obtained from the National Kidney Disease Education Program (NKDEP) which additionally recommends that when the eGFR is used in patients with extremes of body mass index for purposes of drug dosing, the eGFR should be multiplied by the estimated BMI. ELECTROLYT Glucose Lvl 216 70 - 99 01/22 <sup>2</sup>I [facility] nterpretive Medical Data: Adult Center reference range values reflect the clinical guidelines
of the [place] [employer]. ELECTROLYT BUN 33 7 - 22 01/22 [facility] ELECTROLYT Sodium Lvl 140 135 - 145 01/22 [facility] ELECTROLYT Creatinine 1.3 0.5 - 1.4 01/22 [facility] [place] [facility] Lvl [facility] ELECTROLYT Potassium 4.4 3.5 - 5.1 01/22 [facility] [place] [facility] Lv [facility] ELECTROLYT Calcium Lvl 9.6 8.5 - 10.5 01/22 [place] [facility] ELECTROLYT CO2 27 24 - 32 01/22 [facility] ELECTROLYT Chloride Lvl 105 95 - 109 01/22 [place] [facility] HEMATOLOGY MCV 87.5 80.0 - 01/22 [place] 94.0 /2013 [facility] HEMATOLOGY Hct 36.7 42.0 - 01/22 [place] 54.0 /2013 [facility] HEMATOLOGY Hgb 12.5 14.0 - 01/22 18.0 /2013 [facility] HEMATOLOGY RBC 4.19 4.70 - 01/22 6.10 [facility] HEMATOLOGY MPV 8.7 7.4 - 10.4 01/22 [facility] HEMATOLOGY Platelet 194 133 - 450 01/22 [facility] HEMATOLOGY RDW 13.3 11.5 - 01/22 14.5 [facility] HEMATOLOGY MCHC 34.1 32.0 - 01/22 36.0 [facility] HEMATOLOGY MCH 29.9 27.0 - 01/22 [place] 31.0 [facility] HEMATOLOGY WBC 8.3 3.7 - 10.4 01/22 [facility] HEMATOLOGY PTT 29.4 22.9 - 01/22 <sup>4</sup>I [place] 35.8 nterpretive Medical Data: [facility] Therapeutic Range: 57 - 92 Seconds HEMATOLOGY PT 13.5 12.0 - 01/22 [place] 14.7 [facility] HEMATOLOGY INR 1.03 0.85 - 01/22 <sup>3</sup>I [place] 1.17 nterpretive Medical Data: Center RECOMMENDED RANGES FOR PROTIME INR:
2.0-3.0 for most medical and surgical thromboemboli c states.
2.5-3.5 for artificial heart valves and recurrent embolism.<br/ >
INR SHOULD BE USED ONLY FOR PATIENTS ON STABLE ANTICOAGULANT THERAPY. HEMATOLOGY Monocytes 9.2 2.0 - 12.0 01/22 [facility] HEMATOLOGY Lymphocytes 31.0 20.0 - 01/22 [place] 40.0 [facility] HEMATOLOGY Segs 55.8 45.0 - 01/22 [place] 75.0 /2013 [facility] HEMATOLOGY Eosinophils 0.3 0.0 - 0.5 01/22 [place] # /2013 [facility] HEMATOLOGY Monocytes # 0.8 0.0 - 0.8 01/22 a s [facility] HEMATOLOGY Basophils # 0.1 0.0 - 0.2 01/22 a s [facility] HEMATOLOGY Basophils 0.8 0.0 - 1.0 01/22 [facility] HEMATOLOGY Eosinophils 3.2 0.0 - 4.0 01/22 a s [facility] HEMATOLOGY Lymphocytes 2.6 1.0 - 5.5 01/22 [place] # [facility] HEMATOLOGY Segs-Bands # 4.6 1.5 - 8.1 01/22 as [facility] Microbiolo Culture: AFB 02/26 [facility] gy w/Smear [facility] Microbiolo Culture: 02/26 [facility] Anaerobic [facility] Microbiolo Culture: 02/26 [facility] Aspirate/Bod [facility] y [place] Fluid/Tissue Microbiolo Culture: 02/26 [facility] gy Fungal [facility] w/Smear Center BEDSIDE Comment1 Notify 02/26 NA [facility] GLUCOSE RN/MD /2011 [facility] TESTING Center BEDSIDE Gluc POC 197 70 - 99 02/26 [place] <sup>1</sup>I [facility] Data: [place] Upper Reportable Limit: 200 mg/dL. BEDSIDE Gluc POC 237 70 - 99 02/26 [place] <sup>2</sup>I [facility] TEST[facility] Data: [place] Upper Reportable Limit: 200 mg/dL. CHEMISTRY eGFR 74 02/21 NA <sup>3</sup>R esult Medical Comment: The Center eGFR is calculated using the CKD-EPI formula. In most young, healthy individuals the eGFR will be >90 mL/min/1.73m2 . The eGFR declines with age. An eGFR of 60-89 may be normal in some populations, particularly the elderly, for whom the CKD-EPI formula has not been extensively validated. Use of the eGFR is not recommended in the following populations:& lt;br/>
I ndividuals with unstable creatinine concentration s, including patients and those with serious co-morbid conditions.<b r/>
Patie nts with extremes in muscle mass or diet.

The data above are obtained from the National Kidney Disease Education Program (NKDEP) which additionally recommends that when the eGFR is used in patients with extremes of body mass index for purposes of drug dosing, the eGFR should be multiplied by the estimated BMI. CHEMISTRY AST 16 0 - 37 02/21 Normal [facility] CHEMISTRY Sodium Lvl 141 135 - 145 02/21 [facility] CHEMISTRY Potassium 4.9 3.5 - 5.1 02/21 Normal [facility] CHEMISTRY Glucose Lvl 145 70 - 99 02/21 [place] <sup>4</sup>I T ex nterpretive Medical Data: [facility] reference range values reflect the clinical guidelines
of the [place] [employer]. CHEMISTRY BUN 20 7 - 22 02/21 [facility] CHEMISTRY Creatinine 1.0 0.5 - 1.4 02/21 [facility] CHEMISTRY Albumin Lvl 3.5 3.5 - 5.0 02/21 Normal [facility] CHEMISTRY ALT 21 0 - 65 02/21 [facility] CHEMISTRY Total 7.3 6.4 - 8.4 02/21 [facility] CHEMISTRY Chloride Lvl 106 95 - 109 02/21 [facility] CHEMISTRY Bili Total 0.3 0.2 - 1.3 02/21 [facility] CHEMISTRY Alk Phos 125 39 - 136 02/21 [facility] CHEMISTRY Calcium Lvl 9.2 8.5 - 10.5 02/21 [facility] [place] [facility] CHEMISTRY CO2 27 24 - 32 02/21 [facility] CHEMISTRY A/G Ratio 0.9 0.7 - 1.6 02/21 [facility] CHEMISTRY Globulin 3.8 2.0 - 4.0 02/21 [facility] CHEMISTRY AGAP 12.9 10.0 - 02/21 [facility] [place] 20.0 [facility] CHEMISTRY B/C Ratio 20 6 - 25 02/21 [facility] HEMATOLOGY Segs 60.6 45.0 - 02/21 [facility] [place] 75.0 /2011 [facility] HEMATOLOGY Eosinophils 2.6 0.0 - 4.0 10 Normal a s [facility] HEMATOLOGY Monocytes 8.5 2.0 - 12.0 10 Normal [facility] HEMATOLOGY Lymphocytes 27.8 20.0 - 10 Normal [place] 40.0 [facility] HEMATOLOGY Basophils # 0.0 0.0 - 0.2 02/21 Normal a [facility] HEMATOLOGY Segs-Bands # 4.3 1.5 - 8.1 10 Normal [facility] [place] HEMATOLOGY Lymphocytes 2.0 1.0 - 5.5 02/21 [place] [facility] HEMATOLOGY Basophils 0.5 0.0 - 1.0 02/21 Normal [facility] HEMATOLOGY Monocytes # 0.6 0.0 - 0.8 02/21 [place] [facility] HEMATOLOGY Eosinophils 0.2 0.0 - 0.5 02/21 [place] [facility] HEMATOLOGY RDW 14.1 11.5 - 02/21 Normal [place] 14.5 [facility] HEMATOLOGY Platelet 253 133 - 450 02/21 Normal [facility] HEMATOLOGY MPV 8.1 7.4 - 10.4 02/21 Normal [facility] HEMATOLOGY Hct 34.0 42.0 - 02/21 LOW [place] 54.0 [facility] HEMATOLOGY MCV 89.5 80.0 - 02/21 Normal [place] 94.0 [facility] HEMATOLOGY MCH 30.4 27.0 - 02/21 Normal [place] 31.0 [facility] HEMATOLOGY MCHC 34.0 32.0 - 10 Normal [place] 36.0 [facility] HEMATOLOGY Hgb 11.6 14.0 - 02/21 LOW [place] 18.0 Medical [place] HEMATOLOGY WBC 7.2 3.7 - 10.4 02/21 Normal [facility] HEMATOLOGY RBC 3.80 4.70 - 02/21 LOW [place] 6. [facility] HEMATOLOGY INR 1.01 0.85 - 02/21 Normal <sup>5[place]sup>[place] 1. nterpretive Medical Data: Center RECOMMENDED RANGES FOR PROTIME INR:
2.0-3.0 for most medical and surgical thromboemboli c states.
2.5-3.5 for artificial heart valves and recurrent embolism.<br/ >
INR SHOULD BE USED ONLY FOR PATIENTS ON STABLE ANTICOAGULANT THERAPY. HEMATOLOGY PT 13.5 12.0 - 10/11 Normal [facility] 14.7 Medical Center HEMATOLOGY PTT 29.0 22.9 - 10/11 Normal <sup>6</sup>I [place] 35.8 /2011 nterpretive Medical Data: Heparin Center Therapeutic Range: 57 - 92 Seconds BEDSIDE Gluc POC 263 70 - 99 02/02 HI <sup>1</sup>I [facility] GLUCOSE [facility] nterpretive Medical TESTING Data: Center Upper Reportable Limit: 200 mg/dL. BEDSIDE Comment1 Notify 02/02 NA [facility] GLUCOSE RN/ Medical TESTING Center BEDSIDE Gluc POC 253 70 - 99 02/02 HI <sup>2</sup>I [facility] Data: Center Upper Reportable Limit: 200 mg/dL. BEDSIDE Comment1 Notify 02/02 NA [facility] GLUCOSE RN/ /2012 Medical TESTING Center CHEMISTRY Chloride Lvl 107 95 - 109 02/02 Normal [facility] CHEMISTRY CO2 27 24 - 32 02/02 Normal [facility] CHEMISTRY Calcium Lvl 8.2 8.5 - 10.5 02/02 LOW [facility] CHEMISTRY AGAP 12.4 10.0 - 02/02 [facility] CHEMISTRY Potassium 4.4 3.5 - 5.1 02/02 Normal [facility] CHEMISTRY Sodium Lvl 142 135 - 145 02/02 Normal [facility] CHEMISTRY Creatinine 1.1 0.5 - 1.4 02/02 Normal [facility] CHEMISTRY BUN 16 7 - 22 02/02 Normal [facility] CHEMISTRY Glucose Lvl 252 70 - 99 02/02 HI <sup>4</sup>I T ex nterpretive Medical Data: Adult Center reference range values reflect the clinical guidelines
of the [place] [employer]. HEMATOLOGY Monocytes 9.2 2.0 - 12.0 02/02 Normal [facility] HEMATOLOGY Lymphocytes 17.4 20.0 - 02/02 LOW [place] 40.0 /2011 [facility] HEMATOLOGY Segs 72.1 45.0 - 02/02 Normal [place] 75.0 /2011 [facility] HEMATOLOGY Monocytes # 0.7 0.0 - 0.8 02/02 [place] /2011 [facility] HEMATOLOGY Basophils 0.3 0.0 - 1.0 02/02 Normal [facility] HEMATOLOGY Eosinophils 1.0 0.0 - 4.0 02/02 [place] [facility] HEMATOLOGY Lymphocytes 1.3 1.0 - 5.5 02/02 [place] # /2011 [facility] HEMATOLOGY Segs-Bands # 5.4 1.5 - 8.1 02/02 Normal [facility] HEMATOLOGY Basophils # 0.0 0.0 - 0.2 02/02 [place] [facility] HEMATOLOGY Eosinophils 0.1 0.0 - 0.5 02/02 [place] # /2011 [facility] HEMATOLOGY MPV 7.3 7.4 - 10.4 02/02 [facility] HEMATOLOGY Platelet 320 133 - 450 02/02 Normal [facility] HEMATOLOGY RDW 13.1 11.5 - 02/02 Normal [place] 14.5 Medical Center HEMATOLOGY RBC 3.29 4.70 - 02/02 [facility] [place] 6.10 /2011 Medical Center HEMATOLOGY WBC 7.4 3.7 - 10.4 02/02 Normal [facility] HEMATOLOGY Hct 29.3 42.0 - 02/02 [facility] [place] 54.0 /2011 [facility] HEMATOLOGY Hgb 10.0 14.0 - 02/02 [facility] [place] 18.0 Medical [place] HEMATOLOGY MCHC 34.1 32.0 - 02/02 Normal [place] 36.0 /2011 Medical Center HEMATOLOGY MCH 30.3 27.0 - 02/02 [facility] [place] 31.0 Medical Center HEMATOLOGY MCV 89.0 80.0 - 02/02 Normal [place] 94.0 /2011 Medical Center BEDSIDE Comment1 Notify 02/02 NA [facility] GLUCOSE RN/MD /2011 Medical TESTING Center BEDSIDE Gluc POC 182 70 - 99 02/02 HI <sup>3</sup>I [facility] GLUCOSE [facility] nterpretive Medical TESTING Data: Center Upper Reportable Limit: 200 mg/dL. CHEMISTRY AGAP 14.8 10.0 - 02/01 Normal [place] 20.0 /2011 Medical Center CHEMISTRY A/G Ratio 0.7 0.7 - 1.6 02/01 Normal [facility] CHEMISTRY Globulin 4.4 2.0 - 4.0 02/01 HI [facility] CHEMISTRY B/C Ratio 15 6 - 25 02/01 Normal [facility] CHEMISTRY Bili Total 0.3 0.2 - 1.3 02/01 Normal [facility] CHEMISTRY Total 7.6 6.4 - 8.4 02/01 Normal [facility] Protein [facility] CHEMISTRY Calcium Lvl 8.8 8.5 - 10.5 02/01 Normal [facility] CHEMISTRY Chloride Lvl 101 95 - 109 02/01 Normal [facility] CHEMISTRY AST 12 0 - 37 02/01 Normal [facility] CHEMISTRY CO2 28 24 - 32 02/01 Normal [facility] CHEMISTRY Sodium Lvl 139 135 - 145 02/01 Normal [facility] CHEMISTRY Creatinine 1.0 0.5 - 1.4 02/01 Normal [facility] CHEMISTRY BUN 15 7 - 22 02/01 Normal [facility] CHEMISTRY Potassium 4.8 3.5 - 5.1 02/01 Normal [facility] CHEMISTRY Alk Phos 119 39 - 136 02/01 Normal [facility] CHEMISTRY Albumin Lvl 3.2 3.5 - 5.0 02/01 LOW [facility] CHEMISTRY Glucose Lvl 163 70 - 99 02/01 HI <sup>5</sup>I T ex nterpretive Medical Data: Adult Center reference range values reflect the clinical guidelines
of the [place] [employer]. CHEMISTRY ALT 16 0 - 65 02/01 Normal [facility] HEMATOLOGY Basophils # 0.0 0.0 - 0.2 02/01 Normal [facility] HEMATOLOGY Eosinophils 1.2 0.0 - 4.0 02/01 Normal [facility] HEMATOLOGY Monocytes 7.1 2.0 - 12.0 02/01 Normal [facility] HEMATOLOGY Segs 72.6 45.0 - 02/01 Normal [place] 75.0 Medical Center HEMATOLOGY Lymphocytes 18.8 20.0 - 0921 LOW [place] 40.0 /2011 Medical Center HEMATOLOGY Monocytes # 0.7 0.0 - 0.8 02/01 [place] /2011 [facility] HEMATOLOGY Eosinophils 0.1 0.0 - 0.5 02/01 [place] # /2011 [facility] HEMATOLOGY Segs-Bands # 7.1 1.5 - 8.1 02/01 Normal [facility] /2011 [facility] Center HEMATOLOGY Basophils 0.3 0.0 - 1.0 02/01 Normal [facility] HEMATOLOGY Lymphocytes 1.8 1.0 - 5.5 02/01 [place] # /2011 [facility] HEMATOLOGY MPV 7.3 7.4 - 10.4 02/01 LOW [facility] HEMATOLOGY Platelet 375 133 - 450 02/01 Normal Medical [place] HEMATOLOGY WBC 9.8 3.7 - 10.4 02/01 Normal Medical [place] HEMATOLOGY MCHC 33.2 32.0 - 02/01 Normal [place] 36.0 [facility] HEMATOLOGY RDW 12.9 11.5 - 02/01 Normal [place] 14.5 /2011 [facility] HEMATOLOGY MCV 89.9 80.0 - 02/01 Normal [place] 94.0 /2011 Medical Center HEMATOLOGY Hct 34.1 42.0 - 02/01 LOW [place] 54.0 /2011 [facility] HEMATOLOGY Hgb 11.3 14.0 - 02/01 LOW [place] 18.0 /2011 [facility] HEMATOLOGY RBC 3.79 4.70 - 02/01 LOW [place] 6.10 /2011 Medical [place] HEMATOLOGY MCH 29.8 27.0 - 02/01 Normal [place] 31.0 [facility] BLOOD BANK ABO/Rh B POS 02/01 Unknown [facility] RESULTS /2011 [facility] BLOOD BANK Antibody Negative 02/01 Normal [facility] RESULTS Scrn (02/02/2012 09:00:00) /2011 Wi dical Center BEDSIDE Comment2 Notify 02/01 NA [facility] GLUCOSE RN/MD /2011 Medical TESTING Center CHEMISTRY Potassium 4.5 3.5 - 5.1 01/17 Normal [place] Lvl [facility] CHEMISTRY BUN 16 7 - 22 01/17 Normal [facility] CHEMISTRY Glucose Lvl 204 70 - 99 01/17 HI <sup>1</sup>I T ex nterpretive Medical Data: Adult Center reference range values reflect the clinical guidelines
of the [place] [employer]. CHEMISTRY Sodium Lvl 141 135 - 145 01/17 Normal [facility] CHEMISTRY Creatinine 1.0 0.5 - 1.4 01/17 Normal [place] Lvl /2011 Medical Center CHEMISTRY Calcium Lvl 7.9 8.5 - 10.5 01/17 [place] [facility] CHEMISTRY CO2 27 24 - 32 01/17 Normal Medical Center CHEMISTRY Chloride Lvl 103 95 - 109 01/17 Normal [facility] CHEMISTRY AGAP 15.5 10.0 - 01/17 Normal [place] 20.0 /2011 Medical Center HEMATOLOGY Basophils 0.3 0.0 - 1.0 01/17 Normal [facility] HEMATOLOGY Eosinophils 1.9 0.0 - 4.0 01/17 [place] [facility] HEMATOLOGY Monocytes 8.0 2.0 - 12.0 01/17 Normal [facility] HEMATOLOGY Lymphocytes 16.4 20.0 - 01/17 LOW [place] 40.0 Medical Center HEMATOLOGY Eosinophils 0.2 0.0 - 0.5 01/17 [place] # /2011 [facility] HEMATOLOGY Monocytes # 0.7 0.0 - 0.8 01/17 [place] [facility] HEMATOLOGY Lymphocytes 1.4 1.0 - 5.5 01/17 [place] # [facility] HEMATOLOGY Segs-Bands # 6.5 1.5 - 8.1 01/17 Normal [facility] HEMATOLOGY Basophils # 0.0 0.0 - 0.2 01/17 [place] [facility] HEMATOLOGY Segs 73.4 45.0 - 01/17 Normal [place] 75.0 /2011 Medical Center HEMATOLOGY Hgb 10.4 14.0 - 01/17 LOW [place] 18.0 Medical Center HEMATOLOGY Hct 31.6 42.0 - 01/17 LOW [place] 54.0 Medical Center HEMATOLOGY RBC 3.46 4.70 - 01/17 [facility] [place] 6.10 Medical Center HEMATOLOGY MCH 30.0 27.0 - 01/17 Normal [place] 31.0 /2011 Medical Center HEMATOLOGY Platelet 320 133 - 450 01/17 Normal [facility] HEMATOLOGY MCV 91.4 80.0 - 01/17 Normal [facility] 94.0 /2011 [facility] HEMATOLOGY WBC 8.8 3.7 - 10.4 01/17 Normal [facility] HEMATOLOGY MCHC 32.8 32.0 - 09 Normal [facility] 36.0 /2011 [facility] HEMATOLOGY RDW 13.5 11.5 - 09 Normal [facility] 14.5 /2011 [facility] HEMATOLOGY MPV 7.5 7.4 - 10.4 01/17 Normal [facility] BEDSIDE Gluc POC 85 65 - 110 05/12 Normal <sup>1</sup>I [facility] GLUCOSE [facility] nterpretive Medical TESTING Data: Center Upper Reportable Limit: 200 mg/dL. BEDSIDE Gluc POC 203 65 - 110 05/11 HI <sup>2</sup>I [facility] GLUCOSE [facility] nterpretive Medical TESTING Data: Center Upper Reportable Limit: 200 mg/dL. BEDSIDE Gluc POC 221 65 - 110 05/11 HI <sup>3</sup>I [facility] GLUCOSE [facility] nterpretive Medical TESTING Data: [place] Upper Reportable Limit: 200 mg/dL. BEDSIDE Gluc POC 133.0 65 - 110 04/17 HI <sup>1</sup>I GLUCOSE [facility] nterpretive [place] TESTING Data: Upper Reportable Limit: 200 mg/dL. BEDSIDE Comment1 Notify 04/17 NA GLUCOSE RN/ [place] TESTING BEDSIDE Comment1 Notify 04/17 NA GLUCOSE RN/ /2010 [place] TESTING BEDSIDE Gluc POC 154.0 65 - 110 04/17 HI <sup>2</sup>I GLUCOSE [facility] nterpretive [place] TESTING Data: Upper Reportable Limit: 200 mg/dL. CHEMISTRY AGAP 14.4 10.0 - 12 Normal 20.0 [place] CHEMISTRY B/C Ratio 28.0 6 - 25 04/14 HI [place] CHEMISTRY A/G Ratio 1.1 0.7 - 1.6 12 Normal [place] CHEMISTRY Globulin 3.5 2.0 - 4.0 12 Normal [place] CHEMISTRY Total 7.3 6.4 - 8.4 04/14 Normal [place] CHEMISTRY Albumin Lvl 3.8 3.5 - 5.0 04/14 Normal [place] CHEMISTRY Alk Phos 78.0 39 - 136 12/ Normal [place] CHEMISTRY ALT 20.0 0 - 65 12 Normal [place] CHEMISTRY Bili Total 0.4 0.2 - 1.3 12/ Normal [place] CHEMISTRY AST 14.0 0 - 37 04/14 Normal [place] CHEMISTRY Sodium Lvl 140.0 135 - 145 04/14 Normal [place] CHEMISTRY Glucose Lvl 104.0 04/14 NA <sup>3</sup>I nterpretive [place] Data: Reference Ranges : 0 - 7 days : 41 - 90 mg/dL 7 days - 150 yrs : 70 - 99 mg/dL (fasting), based on the clinical recommendatio ns of the [place] [employer]. CHEMISTRY Creatinine 1.0 0.5 - 1.4 04/14 Normal [place] CHEMISTRY Chloride Lvl 103.0 95 - 109 04/14 Normal [place] CHEMISTRY Potassium 4.4 3.5 - 5.1 04/14 Normal [place] CHEMISTRY BUN 28.0 7 - 22 12/ HI [place] CHEMISTRY Calcium Lvl 8.9 8.5 - 10.5 04/14 Normal [place] CHEMISTRY CO2 27.0 24 - 32 / Normal [place] HEMATOLOGY Lymphocytes 28.0 20.0 - 04/14 Normal [facility] 40.0 /2010 [place] HEMATOLOGY Segs 59.2 45.0 - 04/14 Normal [facility] 75.0 /2010 [place] HEMATOLOGY Lymphocytes 1.9 1.0 - 5.5 04/14 Normal [place] HEMATOLOGY Basophils 0.6 0.0 - 1.0 12/ Normal [place] HEMATOLOGY Segs-Bands # 4.1 1.5 - 8.1 12/ Normal [place] HEMATOLOGY Monocytes 9.1 2.0 - 12.0 12/ Normal [place] HEMATOLOGY Eosinophils 3.1 0.0 - 4.0 / Normal /2010 [place] HEMATOLOGY Monocytes # 0.6 0.0 - 0.8 / Normal [place] HEMATOLOGY Eosinophils 0.2 0.0 - 0.5 / Normal [place] HEMATOLOGY Basophils # 0.0 0.0 - 0.2 / Normal [place] HEMATOLOGY PTT 28.0 22.9 - 12 Normal <sup>5</sup>I 35.8 /2010 nterpretive [facility] Data: Heparin Therapeutic Range: 57 - 92 Seconds HEMATOLOGY PT 12.5 12.0 - 12/ Normal [facility] 14.7 /2010 [facility] HEMATOLOGY INR 0.93 0.85 - 12/ Normal <sup>4</sup>I 1.17 /2010 nterpretive [facility] Data: RECOMMENDED RANGES FOR PROTIME INR: 2.0-3.0 for most medical and surgical thromboemboli c states. 2.5-3.5 for artificial heart valves and recurrent embolism. INR SHOULD BE USED ONLY FOR PATIENTS ON STABLE ANTICOAGULANT THERAPY. HEMATOLOGY Platelet 295.0 133 - 450 / Normal [facility] HEMATOLOGY MPV 8.0 7.4 - 10.4 04/14 Normal /2010 [facility] HEMATOLOGY RDW 14.2 11.5 - 04/14 Normal 14. [facility] HEMATOLOGY MCV 90.2 80.0 - 04/14 Normal [facility] 94.0 /2010 [facility] HEMATOLOGY MCH 31.0 27.0 - 04/14 Normal [place] 31.0 /2010 [facility] HEMATOLOGY MCHC 34.4 32.0 - 12/ Normal [place] 36.0 /2010 [facility] HEMATOLOGY Hgb 10.8 14.0 - 04/14 LOW [place] 18.0 /2010 [facility] HEMATOLOGY Hct 31.5 42.0 - / LOW 54.0 /2010 [facility] HEMATOLOGY WBC 6.9 3.7 - 10.4 04/14 Normal /2010 [facility] HEMATOLOGY RBC 3.49 4.70 - 04/14 LOW [facility] 6.10 [facility] BEDSIDE Gluc POC 120 65 - 110 04/14 HI <sup>1</sup>I [facility] GLUCOSE [facility] nterpretive Medical TESTING Data: [place] Upper Reportable Limit: 200 mg/dL. BEDSIDE Gluc POC 165 65 - 110 04/14 HI <sup>2</sup>I [facility] Data: [place] Upper Reportable Limit: 200 mg/dL. BEDSIDE Gluc POC 106 65 - 110 04/13 Normal <sup>3</sup>I [facility] Data: [place] Upper Reportable Limit: 200 mg/dL. BEDSIDE Comment1 Sliding 04/01 NA [facility] GLUCOSE Scale Medical TESTING Center BEDSIDE Gluc POC 331.0 65 - 110 04/01 HI <sup>1</sup>I [facility] GLUCOSE [facility] nterpretive Medical TESTING Data: Center Upper Reportable Limit: 200 mg/dL. BEDSIDE Comment1 Notify 04/01 NA [facility] GLUCOSE RN/MD Medical TESTING Center BEDSIDE Gluc POC 240.0 65 - 110 04/01 HI <sup>2</sup>I [facility] GLUCOSE [facility] nterpretive Medical TESTING Data: Center Upper Reportable Limit: 200 mg/dL. CHEMISTRY Creatinine 1.1 0.5 - 1.4 04/01 Normal [facility] Lvl Medical Center CHEMISTRY Calcium Lvl 8.2 8.5 - 10.5 04/01 [facility]OW [facility] CHEMISTRY BUN 25.0 7 - 22 04/01 HI Medical [place] CHEMISTRY Chloride Lvl 105.0 95 - 109 04/01 Normal [facility] CHEMISTRY Potassium 4.0 3.5 - 5.1 04/01 Normal [facility] CHEMISTRY Sodium Lvl 141.0 135 - 145 04/01 Normal [facility] CHEMISTRY CO2 24.0 24 - 32 04/01 Normal Medical Center CHEMISTRY Glucose Lvl 232.0 04/01 NA <sup>4</sup>I [place] nterpretive Medical Data: Center Reference Ranges : 0 - 7 days : 41 - 90 mg/dL 7 days - 150 yrs : 70 - 99 mg/dL (fasting), based on the clinical recommendatio ns of the [place] [employer]. CHEMISTRY AGAP 16.0 10.0 - 04/01 Normal [place] 20.0 [facility] HEMATOLOGY Hct 28.4 42.0 - 04/01 LOW [place] 54.0 Medical Center HEMATOLOGY Hgb 9.7 14.0 - 04/01 LOW [place] 18.0 [facility] HEMATOLOGY RBC 3.2 4.70 - 04/01 LOW [place] 6.10 Medical Center HEMATOLOGY WBC 7.2 3.7 - 10.4 04/01 Normal [facility] HEMATOLOGY MCH 30.3 27.0 - 04/01 Normal [place] 31.0 Medical Center HEMATOLOGY MCHC 34.1 32.0 - 04/01 Normal [place] 36.0 Medical Center HEMATOLOGY MCV 88.7 80.0 - 04/01 Normal [place] 94.0 Medical Center HEMATOLOGY RDW 13.6 11.5 - 04/01 Normal [place] 14.5 Medical Center HEMATOLOGY Platelet 183.0 133 - 450 04/01 Normal [facility] HEMATOLOGY MPV 7.7 7.4 - 10.4 04/01 Normal [facility] HEMATOLOGY Monocytes 9.3 2.0 - 12.0 04/01 Normal [facility] HEMATOLOGY Basophils # 0.0 0.0 - 0.2 04/01 [place] [facility] HEMATOLOGY Segs-Bands # 4.7 1.5 - 8.1 04/01 Normal [facility] HEMATOLOGY Lymphocytes 1.6 1.0 - 5.5 04/01 Normal [place] # [facility] HEMATOLOGY Eosinophils 1.7 0.0 - 4.0 04/01 [place] [facility] HEMATOLOGY Basophils 0.2 0.0 - 1.0 04/01 Normal [facility] HEMATOLOGY Monocytes # 0.7 0.0 - 0.8 04/01 [place] [facility] HEMATOLOGY Eosinophils 0.1 0.0 - 0.5 04/01 Normal [place] # [facility] HEMATOLOGY Segs 66.0 45.0 - 04/01 Normal [place] 75.0 Medical Center HEMATOLOGY Lymphocytes 22.8 20.0 - 04/01 Normal [place] 40.0 Medical Center BEDSIDE Comment1 Notify 04/01 NA [facility] GLUCOSE RN/ /2010 Medical TESTING Center BEDSIDE Gluc POC 249.0 65 - 110 04/01 HI <sup>3</sup>I [facility] GLUCOSE [place] nterpretive Medical TESTING Data: Center Upper Reportable Limit: 200 mg/dL. CHEMISTRY Sodium Lvl 139.0 135 - 145 03/30 Normal [facility] CHEMISTRY Chloride Lvl 103.0 95 - 109 03/30 Normal [facility] CHEMISTRY Potassium 4.2 3.5 - 5.1 03/30 Normal [place] Lvl [facility] CHEMISTRY CO2 24.0 24 - 32 03/30 Normal [facility] CHEMISTRY Calcium Lvl 8.6 8.5 - 10.5 03/30 Normal s [facility] CHEMISTRY Creatinine 0.9 0.5 - 1.4 03/30 Normal [place] Lvl Medical Center CHEMISTRY Glucose Lvl 230.0 03/30 NA <sup>5</sup>I T ex nterpretive Medical Data: Center Reference Ranges : 0 - 7 days : 41 - 90 mg/dL 7 days - 150 yrs : 70 - 99 mg/dL (fasting), based on the clinical recommendatio ns of the [place] [employer]. CHEMISTRY BUN 22.0 7 - 22 03/30 Normal [facility] CHEMISTRY AGAP 16.2 10.0 - 03/30 Normal [place] 20.0 Medical Center HEMATOLOGY Basophils 0.2 0.0 - 1.0 03/30 Normal [facility] HEMATOLOGY Segs-Bands # 3.5 1.5 - 8.1 03/30 Normal [facility] HEMATOLOGY Eosinophils 3.6 0.0 - 4.0 03/30 Normal [facility] HEMATOLOGY Monocytes 10.5 2.0 - 12.0 03/30 Normal [facility] HEMATOLOGY Lymphocytes 29.0 20.0 - 03/30 Normal [place] 40.0 Medical Center HEMATOLOGY Segs 56.7 45.0 - 03/30 Normal [place] 75.0 Medical Center HEMATOLOGY Eosinophils 0.2 0.0 - 0.5 03/30 [place] # [facility] HEMATOLOGY Basophils # 0.0 0.0 - 0.2 03/30 Normal [facility] HEMATOLOGY Lymphocytes 1.8 1.0 - 5.5 03/30 [place] [facility] HEMATOLOGY Monocytes # 0.6 0.0 - 0.8 03/30 [place] [facility] HEMATOLOGY MPV 8.5 7.4 - 10.4 03/30 Normal [facility] Center HEMATOLOGY MCV 88.9 80.0 - 03/30 Normal [place] 94.0 Medical Center HEMATOLOGY MCH 30.9 27.0 - 03/30 Normal [place] 31.0 Medical Center HEMATOLOGY MCHC 34.8 32.0 - 03/30 Normal [place] 36.0 Medical Center HEMATOLOGY RDW 13.3 11.5 - 03/30 Normal [facility] [place] 14.5 [facility] HEMATOLOGY Platelet 188.0 133 - 450 03/30 Normal [facility] HEMATOLOGY WBC 6.1 3.7 - 10.4 03/30 Normal [facility] HEMATOLOGY RBC 3.66 4.70 - 03/30 LOW [facility] 6.10 [facility] HEMATOLOGY Hgb 11.3 14.0 - 03/30 [facility] 18.0 /2010 [facility] HEMATOLOGY Hct 32.6 42.0 - 03/30 [facility] 54.0 /2010 [facility] HEMATOLOGY PTT 32.2 22.9 - 03/30 Normal <sup>7</sup>I [place] 35.8 nterpretive Medical Data: Heparin Center Therapeutic Range: 57 - 92 Seconds HEMATOLOGY PT 13.2 12.0 - 03/30 Normal [facility] 14.7 [facility] HEMATOLOGY INR 1.0 0.85 - 03/30 Normal <sup>6[place]sup[place] nterpret[place] Medical Data: Center RECOMMENDED RANGES FOR PROTIME INR: 2.0-3.0 for most medical and surgical thromboemboli c states. 2.5-3.5 for artificial heart valves and recurrent embolism. INR SHOULD BE USED ONLY FOR PATIENTS ON STABLE ANTICOAGULANT THERAPY. Pathology Reports No Data Provided for This Section Diagnostic Reports Report Value Date Source Foot series DX EXAM: XR RIGHT FOOT 3 VIEWS 04/18/2016 [facility] DATE: 04/18/2016 at 1139 hours Ce nter INDICATION: NON-HEALING SURGICAL WOUND COMPARISON: X-ray of the right foot on 6. TECHNIQUE: AP, lateral and oblique radiographs o f the right foot FINDINGS: There has been interval ray amputation of the great toe at the level of the distal metatarsal. Significant bony destruction of the remaining distal 1st metatarsal is present, with loss of cortical eulalio n. Bony erosion and cortical loss of the 2nd distal metatarsal and proximal phalanx is also present, with extension to the distal 3rd metatarsal. No acute fractures are identified. Soft tissue swelling is present. IMPRESSION: 1. Bony destruction of the distal 1st metatarsal at the amputation site. Bony destruction of the 2nd metatarsal and proximal phalanx. Findings are consistent with active osteomyelitis. This process is likely extending into the 3rd metatarsophalangea l joint. 2. Soft tissue swelling of the distal right jose alberto t. Findings were communicated w eitan Rosen NP of the wound care team at 1528 hours on 04/18/2016. Chest 1view DX Portable ap semierect chest June 02, 2015 [facility] HISTORY: Abnormal chest sounds. Comparison is ma de with May 31. FINDINGS: Cardiomediastinal silhouette and randolph otomy wires are stable. Costophrenic sulci are sharp. Lung volumes are diminished with resultant elevation of the hemidiaphragms, spurious widening of the diameter of the heart and crowding of the basal lung markings. This produces subsegmental atelectasi s at both lung bases. The upper lungs are clear . CONCLUSION: No significant interval change in the appearance of the chest when compared to prior radiograph. Chest 1view DX PORTABLE CHEST 2015-05-31 10:56:00 05/31/2015 [facility] COMPARISON: 05/28/2015 CLINICAL INDICATION: Abnormal chest sounds DISCUSSION: Stable postoperative cardiomediastinal silhouett e. Left lower and right midlung subsegmental atelec tasis. No pleural effusion or pneumothorax. Stable skeletal structures. IMPRESSION: There has been no significant interval change in the radiographic appearance of the chest when compared to prior radiograph. Chest 1view DX EXAM: XR CHEST 1 VIEW 05/28/2015 [facility] DATE: 2015-05-28 09:41:00 INDICATION: Coughing COMPARISON: Chest xray May 24 2015 TECHNIQUE: A single portable view of the chest FINDINGS: Lines and tubes: None. Lungs and pleura: Right midl joaquin subsegmental ectasis Left retrocardiac and basilar opacity could represent subsegmental atelectasis versus consolidation. The right costophrenic sulcus is sharp. The left costophrenic sulcus is blun jair likely to indicate an underlying pleural effusion. No pneumothorax Heart and mediastinum: The cardiomediastinal garcia houette remains enlarged. No acute osseous abnormality is noted. IMPRESSION: No significant interval change as co mpared to May 24, 2015. Chest 1view DX Chest one view, May 24, 2015 at 9:24 a.m. [facility] HISTORY: 79-year-old man with crackles. FINDINGS: Comparison is made to May 22. The cardiomediastinal silhou ette is stable. Subsegmental atelectasis is seen in the bilateral lower lobes, greater on the left. There is a tiny left pleural effusion. IMPRESSION: No change. Foot series DX 05/23/2015 [facility] LEFT FOOT, 3 views. Center DATE: 05/23/2015 CLINICAL INDICATION: Erythema FINDINGS: Frontal, oblique a nd lateral views of the left foot are obtained and submitted for interpretation. Comparison is made to prior study performed and 02/01/2016. There has been no interval c hange in the radiographic appearance of the left foot since the last study. Again amputation of the second and thirds toes is noted, along with amputation of the head of the second metatarsal. Erosions and osteopenia at the head of the first metatarsal head are unchanged, and similar changes are seen in the lateral sesamoid. The remainder of the bony stumps is unremarkable. There is soft tissue irregu larity and uncovering along the medial aspect of the metatarsal head. There is also diffuse osteopenia, soft tissue swelling and calcific vascular disease. IMPRESSION: Unchanged appearance of the first metatarsal head and sesamoids osteomyelitis,and status post first, second and third toe amputation including the second metatarsal head. Ext Lower Venous VENOUS DOPPLER ULTRASOUND BILATERAL LOWE R EXTREMITY: 05/22/2015 [facility] Doppler Bilat US Center CLINICAL INDICATION: Pain TECHNIQUE: The veins of the bilateral lower extremities were evaluated with grayscale, color-flow and spectral Doppler ultrasound. FINDINGS: The bilateral comm on femoral , superficial femoral, and popliteal veins demonstrate normal compressibility and color Doppler signal. IMPRESSION: Negative for DVT in the bilateral lo wer extremities. Foot series DX EXAM: RIGHT FOOT 3 VIEWS 05/22/2015 [facility] DATE: May 22, 2015 03:56:00 PM INDICATION: Erythema COMPARISON: None available TECHNIQUE: AP, lateral and oblique radiographs of the right foot FINDINGS: There is loss of soft tissue pulp at the tip of the first digit. Moderate arterial calcification is present. Generalized diminished bone mineral density with no cortical erosions, periosteal reaction, or focal bone demineralization. Joint spaces are preserved. IMPRESSION: No acute bone abnormality identified. Foot series DX EXAM: LEFT FOOT 3 VIEWS 05/22/2015 [facility] DATE: May 22, 2015 03:57:00 PM INDICATION: Erythema COMPARISON: Left foot series 09/02/2014. TECHNIQUE: AP, lateral and oblique radiographs of the left foot are interpreted. FINDINGS: There has been int erval amputation of the first digit at the level of the MTP joint. There is demineralization and noncorticated erosions of the first metatarsal head, consistent with osteomye litis. No other acute bony c hanges. Unchanged appearance of the amputation margins of the second and third digits. Poor soft tissue coverage at the amputation margin. Moderate arterial calcification IMPRESSION: Acute osteomyelitis of the first metatarsal head . Chest 1view DX EXAM: XR CHEST 1 VIEW 05/22/2015 [facility] DATE: 2015-05-22 09:01:00 INDICATION: Crackles . COMPARISON: None. TECHNIQUE: Single frontal chest radiograph FINDINGS: Lung volumes are low. Streaky opacities are seen in the left lung base. The cardiomediastinal silhouette is within kary l limits. Sternotomy wires are present . No acute bony abnormality is identified. Evidence of left rotator cuff calcific tendinosis is seen. Right upper quadrant cholecystectomy clips are p resent. IMPRESSION: Hypoinflation with left basi lar subsegmental atelectasis. Superimposed aspiration or infection is not excluded. Ext Lower Arterial EXAM: RIGHT LOWER EXTREMITY ARTERIAL DOPPLER US 05/20/2015 [facility] Doppler unilat US Center CLINICAL HISTORY: Embolism/occlusion of the lowe r extremity. DISCUSSION: Doppler and dupl ex examination of the lower extremity arteries was performed Normal, triphasic waveform is present at the com mon femoral artery. Biphasic waveform is present at the proximal and mid superficial femoral artery. Calcification is seen at the superficial femoral/deep femoral artery bifurcation. Echogenic, occlusive thrombu s is seen at the distal SFA. Pulsatile, monophasic waveforms are seen at the distal SFA, proximal to the occlusion. Collateral vessel is seen arising from the distal SFA. No flow is seen at the poplitea l or posterior tibial arteries. Minimal, monophasic flow is seen at the anterior tibial and dorsalis pedis arteries. IMPRESSION: 1. 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 2. Collateralization from th e right distal superficial femoral artery with very minimal monophasic flow in the anterior tibial and dorsalis pedis arteries. Foot w/wo contrast EXAM: MR LEFT FOREFOOT WITH AND WITHOUT CONTR AST 11/07/2014 [facility] DATE: 11/07/2014 at 1510 hours INDICATION: Evaluate for great toe osteomyelitis COMPARISON: 01/31/2012 left foot MRI, 09/02/2014 l eft foot radiographs TECHNIQUE: Multiplanar imagi ng of the left forefoot is obtained both prior to and following the intravenous administration of 18 mL MultiHance. Dose and type of contrast was confirmed with the technologist Monika. FINDINGS: Bones: Compared with the christopher or examination there is now complete or near complete absence of the great toe distal phalanx. There is bone marrow edema, decreased T1 signal and enhancement of the great to e proximal phalanx, with no abnormality identified in this region on the prior radiograph. Prior amputation of the second and third toes at the second metatarsal head and third metatarsophalangeal join ts is again identified, with out abnormal bone marrow signal within the remaining toes or metatarsals. Muscles: Diffuse muscular at rophy is present without intramuscular fluid collection. Soft tissue: There is no luis antonio inable fluid collection. Bandage material is identified at the distal aspect of the great toe. No abnormality of the neurovascular structures. Osteomyelitis of the left gr eat toe proximal phalanx discussed with Dr. Saucedo via telephone at 1844 hours 11/07/2014 IMPRESSION: Osteomyelitis of the great toe proximal phalanx. No drainable fluid collection. Foot series DX EXAM: XR LEFT FOOT 3 VIEWS 09/02/[address] [facility] DATE: 2014-09-02 14:33:00 INDICATION: ULCER OF OTHER PART OF FOOT COMPARISON: July 08, 2014. TECHNIQUE: AP, lateral and oblique radiographs of the left foot FINDINGS: A soft tissue defe ct is seen along the distal toe. There has been mild interval progression of osteolysis of the distal tuft. Well corticated amputation sites at the second distal metatarsal i s seen, as well as the third MTP. Vascular calcifications extend to the hallux proximal phalanx base. No acute fracture or dislocation seen. An os naviculare is noted. A small posterior calcaneal enthes ophyte is present. Cystic ch karyna is seen within the first metatarsal head and the medial sesamoid. IMPRESSION: Minimal interva l progression of osteolysis involving the distal tuft of the great toe which may be due to active, chronic osteomyelitis. Foot series DX EXAM: XR LEFT FOOT 3 VIEWS 07/08/[address] [facility] DATE: 07/08/2014 1019 hours INDICATION: Ulcer of other part of foot COMPARISON: 02/03/2012. TECHNIQUE: AP, lateral and oblique radiographs of the left foot FINDINGS: Compared with 2011 examination there has been amputation of the second toe at the level of the metatarsal neck. Prior amputation of the third toe at the metatarsophalangeal joint is unchanged. There is no erosion of the great toe distal phalanx compared with 2011, however the majority of the margins are corticated. Tiny areas of more acute erosion are suspected along the dorsal margin. Diffu se vascular calcifications a re present. There is overlying soft tissue irregularity consistent with ulcer. Message left for Dr. Avendaño's nurse by telephone at 1329 hours 07/08/2014 IMPRESSION: New region of th e tuft great toe distal phalanx, predominantly chronic in appearance with tiny erosions suspected. Superimposed acute osteomyelitis cannot be entirely excluded. Please correlate with clinical findings. Consultation Notes No Data Provided for This Section Discharge Summaries No Data Provided for This Section History and Physicals No Data Provided for This Section Vital Signs Vital Sign Value Date Comments Source Systolic (mm Hg) 190 11/25/2015 [facility] Diastolic (mm Hg) 91 11/25/2015 [facility] Respitory Rate 16 11/25/2015 [facility] Systolic (mm Hg) 151 11/25/2015 [facility] Diastolic (mm Hg) 68 [facility] 14 11/25/2015 [facility] Systolic (mm Hg) 159 11/25/2015 [facility] Diastolic (mm Hg) 72 11/25/2015 [facility] Respitory Rate 20 11/25/2015 [facility] Heart Rate 89 11/25/2015 [facility] Weight 81.818 11/25/2015 [facility] BMI Calculated 25.88 11/25/2015 [facility] Height 177.8 cm 11/25/2015 [facility] Height 177.8 cm 11/18/2015 [facility] BMI Calculated 25.59 11/18/2015 [facility] Weight 80.909 11/18/2015 [facility] Heart Rate 99 11/18/2015 [facility] Height 177.8 cm 10/26/2015 [facility] BMI Calculated 23.72 10/26/2015 [facility] Weight 75 10/26/2015 [facility] BMI Calculated 23.72 09/22/2015 [facility] Weight 75 09/22/2015 [facility] Height 177.8 cm 09/22/2015 [facility] Systolic (mm Hg) 147 06/04/2015 [facility] Diastolic (mm Hg) 76 06/04[facility]2015 [facility] Temperature Oral (F) 97.6 F 06/04/2015 [facility] Systolic (mm Hg) 92 06/04/2015 [facility] Diastolic (mm Hg) 47 06/04/2015 [facility] Systolic (mm Hg) 106 06/04/2015 [facility] Diastolic (mm Hg) 54 06/04/2015 [facility] Temperature Oral (F) 98.0 F 06/04/2015 [facility] Temperature Oral (F) 98.1 F 06/04/2015 [facility] Respitory Rate 18 06/04/2015 [facility] Respitory Rate 16 06/04/2015 [facility] Respitory Rate 16 06/04/2015 [facility] Weight 75 05/21/2015 [facility] BMI Calculated 25.02 05/20/2015 [facility] Weight 79.091 05/20/2015 [facility] Height 177.8 cm 05/20/2015 [facility] Heart Rate 110 05/20/2015 [facility] Temperature Oral (F) 98.0 F 09/11/2014 [facility] Respitory Rate 24 09/11/2014 [facility] Center Systolic (mm Hg) 161 09/11/2014 [facility] Diastolic (mm Hg) 70 09/11/2014 [facility] Respitory Rate 27 09/11/2014 [facility] Systolic (mm Hg) 174 09/11/2014 [facility] Diastolic (mm Hg) 77 09/11/2014 [facility] Respitory Rate 22 09/11/2014 [facility] Systolic (mm Hg) 170 09/11/2014 [facility] Diastolic (mm Hg) 76 09/11/2014 [facility] Height 177.8 cm 09/10/2014 [facility] Weight 87.727 09/10/2014 [facility] BMI Calculated 27.75 09/10/2014 [facility] Temperature Oral (F) 97.6 F 09/10/2014 [facility] Systolic (mm Hg) 172 05/13/2014 [facility] Temperature Oral (F) 98.4 F 05/13/2014 [facility] Diastolic (mm Hg) 70 05/13/2014 [facility] Systolic (mm Hg) 165 05/13/2014 [facility] Diastolic (mm Hg) 71 05/13/2014 [facility] Diastolic (mm Hg) 65 05/13/2014 [facility] Systolic (mm Hg) 144 05/13/2014 [facility] Temperature Oral (F) 99.6 F 05/13/2014 [facility] Height 177.8 cm 05/12/2014 [facility] Weight 92.727 05/12/2014 [facility] BMI Calculated 29.33 05/12/2014 [facility] Systolic (mm Hg) 135 01/22/2014 [facility] Center Diastolic (mm Hg) 75 01/22/2014 [facility] Respitory Rate 23 01/22/2014 [facility] Diastolic (mm Hg) 60 01/22/2014 [facility] Respitory Rate 28 01/22/2014 [facility] Systolic (mm Hg) 137 01/22/2014 [facility] Systolic (mm Hg) 147 01/22/2014 [facility] Diastolic (mm Hg) 67 01/22/2014 [facility] Center Respitory Rate 26 01/22/2014 [facility] BMI Calculated 29.48 01/22/2014 [facility] Height 177.8 cm 01/22/2014 [facility] Weight 93.182 01/22/2014 [facility] BMI Calculated 26.15 01/21/2014 [facility] Height 180.34 cm 01[facility]21/2014 [facility] Weight 85.045 01/21/2014 [facility] Heart Rate 91 02/27/2012 [facility] Diastolic (mm Hg) 78 02/27/2012 [facility] Systolic (mm Hg) 156 02/27/2012 [facility] Respitory Rate 16 02/27/2012 [facility] Center Respitory Rate 13 02/27/2012 [facility] Systolic (mm Hg) 146 02/27/2012 [facility] Diastolic (mm Hg) 61 02/27/2012 [facility] Diastolic (mm Hg) 74 02/27/2012 [facility] Respitory Rate 14 02/27/2012 [facility] Systolic (mm Hg) 161 02/27/2012 [facility] Heart Rate 66 02/27/2012 [facility] Height 177.80 cm 02/22/2012 [facility] Weight 85.455 02/22/2012 [facility] Systolic (mm Hg) 108 02/03/2012 [facility] Diastolic (mm Hg) 57 02/03/2012 [facility] Center Respitory Rate 16 02/03/2012 [facility] Diastolic (mm Hg) 63 02/03/2012 [facility] Respitory Rate 16 02/03/2012 [facility] Systolic (mm Hg) 140 02/03/2012 [facility] Diastolic (mm Hg) 79 02/03/2012 [facility] Systolic (mm Hg) 169 02/03/2012 [facility] Respitory Rate 16 02/03/2012 [facility] Temperature Oral (F) 98.2 F 02/03/2012 [facility] Temperature Oral (F) 98.7 F 02/03/2012 [facility] Temperature Oral (F) 99 F 02/03/2012 [facility] Heart Rate 84 02/02/2012 [facility] Heart Rate 90 02/02/2012 [facility] Heart Rate 87 02/02/2012 [facility] Height 177.80 cm 02/01/2012 [facility] Weight 85.455 02/01/2012 [facility] Respitory Rate 16.0 04/17/2011 [facility] Diastolic (mm Hg) 60.0 04/17/[address] Systolic (mm Hg) 166.0 04/17/[facility] Systolic (mm Hg) 164.0 04/17/2011 [facility] Respitory Rate 16.0 04/17/2011 [facility] Diastolic (mm Hg) 58.0 04/17/[address] Respitory Rate 16.0 04/17/2011 [facility] Diastolic (mm Hg) 49.0 04/17/[address] Systolic (mm Hg) 166.0 04/17/2011 [facility] Heart Rate 72.0 04/17/2011 [facility] Heart Rate 78.0 04/14/2011 [facility] Temperature Oral (F) 98.5 F 04/14/2011 [facility] Weight 92.273 04/14/2011 [facility] Height 177.8 cm 04/14/2011 [facility] Respitory Rate 18.0 04/01/2011 [facility] Systolic (mm Hg) 157.0 04/01/2011 [facility] Diastolic (mm Hg) 68.0 04/01/2011 [facility] Temperature Oral (F) 98.0 F 04/01/2011 [facility] Heart Rate 100.0 04/01/2011 [facility] Diastolic (mm Hg) 62.0 04/01/2011 [facility] Heart Rate 89.0 04/01/2011 [facility] Respitory Rate 18.0 04/01/2011 [facility] Temperature Oral (F) 97.6 F 04/01/2011 [facility] Systolic (mm Hg) 132.0 04/01/2011 [facility] Diastolic (mm Hg) 80.0 04/01/2011 [facility] Center Systolic (mm Hg) 178.0 04/01/2011 [facility] Respitory Rate 18.0 04/01/2011 [facility] Temperature Oral (F) 96.3 F 04/01/2011 [facility] Heart Rate 91.0 04/01/2011 [facility] Weight 93.324 03/30/2011 [facility] Height 177.8 cm 03/30/2011 [facility] Encounters Location Location Encounter Encounter Reason Attending ADM DC Stat us Source Details Type Number For Provider Date Date Visit [facility] [place] [id number] ULCER ON MOHAMMED 03/29 Active [facility] 0 LEFT [facility] [id number] LT FOOT NATHALY [place] 03/29 04/01 Ac tive [facility] 0 CELLULIT /2010 [facility] IS, Medical DIABETIC Center FOOT ULCER, DM, PAD [facility] [id number] SIVAKUMAR ALEXANDER 04/14 Activ e [facility] 1 [facility] DS [id number] CHRISTOPHER 04/17 04/17 [facility] 0 HOWARD /[address] [facility] [id number] RIW ROSELINE ALEXANDER 05/17 Active [facility] [id number] [place] DINA 06/19 Active [facility] 2 FIF [facility] Outpatient [id number] ULCER OF TA[place] 01/30 Act sh[facility] [address] [facility] PART OF Medical FOOT Center [facility] [id number] PERIPHER NORBERT 01/31 02/02 Active [facility] 4 AL MARY /2011 [facility] CHRONIC OSTEOMYE LITIS LT FOOT [facility] [id number] [facility] [place] 02/21 Active [facility] 2 [facility] [id number] WOUND [place] 10/18 Active [facility] 3 [facility] [id number] [facility] [place] 12/02 Active [facility] 4 AVENDAÑO [facility] [id number] RIW TA[place] 02/14 Active [facility] 5 [facility] WC [id number] [place] 03/28 Active [facility] 8 [facility] [id number] [place] 01/22 01/22 [facility] 7 Guy /2013 [facility] [id number] Taina 02/05 03/07 [facility] 9 Avendaño [facility] [id number] Taina 03/30 04/29 [facility] 0 Avendaño /2013 [facility] [id number] Taina 05/04 06/03 [facility] 1 [facility] Bedded [id number] [place] 05/12 05/13 [facility] 8 Guy [facility] [id number] Taina 06/22 07/22 [facility] [place] 2 [facility] [id number] [place] 08/03 09/02 [facility] [place] 3 [facility] [id number] [place] 09/02 10/02 [facility] [place] 4 [facility] Bedded [id number] [place] 09/10 09/11 [facility] 9 [facility] [id number] Taina 10/29 11/28 [facility] 5 [facility] [id number] [place] 01/12 02/10 [facility] [place] 6 [facility] Inpatient [id number] [place] 05/20 06/04 [facility] [place] 1 [facility] [id number] T[place]a 07/22 08/21 [facility] [place] 7 [facility] [id number] [place] 09/21 10/21 [facility] [place] 8 [facility] [facility] [id number] Taina 10/25 11/24 MH Angel 9 [facility] OBS Day [id number] Christopher 11/24 11/25 [facility] Angel Surgery 2 [facility] [id number] Taina 04/10 05/10 MH Angel 1 [facility] [place] [phone] FORD Active [facility] 1 [facility] [place] [phone] LEFT CHRISTOPHER Activ e [facility] 6 SECOND [facility] ,ICD.9-7 85.4 [facility] [place] [phone] [place] DINA Cancel [facility] 6 FIFE [facility] [place] [phone] [place] ROSELINE ALEXANDER Active [facility] 7 [facility] Procedures Procedure Code Date Perfomer Comments Source Angiogram [id number] [facility] Appendix operation [id number] [facility] Tonsillectomy [id number] [facility] Cancer chemotherapy [id number] [facility] Angiogram<sup>1</per[place] [id number] [place] [facility] Assessment and Plan Assessment and Plan Date Source Extracted from:Title: New PM&R Consult 06/04/2015 [facility] Author: Trenton Vicente MD Date: 06/02/15 PM&R CONSULT FOLLOWUP Chief Complaint: Deconditioning due to m ultiple medical problems including Bilateral lower extremity critical limb ischemia Referring physician: Dr. Guy Reason for consult: Assessment of rehabilitation needs The patient's chart was reviewed and summarized to formulate this consult. HPI: This is a 79 year old cachectic mal e with a history of multiple medical problems including severe PAD, DM II, CAD s/p NV, who presented to [facility] on 05/20/15 with critical limb ischemia bilaterally. He recently had a NV and at an outside hospital had a balloon pump placed and upon removal of the pump developed emboli to the right lower extremity requiring surgical intervention. He underwent a ar terial bypass procedure on 05/21/15 to the right lower extremity and there is a planned revascularization procedure to the left lower extremity early next week. He also has had a history of amputation of the great big toe of the left lower ext remity with exposed bone and osteomyelitis. Plastic surgery is planning on closing the wound once the revascularization has been completed. Since developing the se medical and vascular issues the patie nt reports it has made it more and more difficult to ambulate. He currently has been evaluated by PT and OT and has functional deficits in transfers, mobility, a nd ADLs. PM&R was consulted for assess ment of functional rehabilitation needs. Interval Followup: The patient has been doing fairly well since the last time PM&R saw the patient on 05/26/14. 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 The patient states that since the surgeries his pain is well controlle.d He has not been working with PT and OT sin ce the operations but is able to indepen dently transfer from the bed to the chair and feels that is strenght is much improved. Current Functional Status: OT (05/26/14): Current Functional Status Bed Mobility : Supvn/Setup Transfers : MOD A Feeding : Independent Grooming : Supvn/Setup Upper Body Dressing : Supvn/Setup Lower Body Dressing : MOD A Toileting : MOD A Room Mobility : Activity does not occur PT (05/26/14): Bed Mobility Roll Right Roll Right : MOD I Supine to Sit : SBA Scooting : SBA Transfer Sit to Stand Sit to Stand : MIN A, CGA Stand to Sit : MIN A, CGA Stand Pivot with Assistive Device L/R : MIN A Bed to Chair : MIN A Bed to Bedside Commode : MIN A Meds: Scheduled Meds (13): 05/20/15 aspirin 81 mg PO Daily 06/02/15 ceFAZolin (Ancef) 2 gm IVPB ABXQ8H 200 ml/hr 05/20/15 clopidogrel (Plavix) 75 mg PO Daily 05/24/15 docusate (Colace 100 mg oral capsule) 100 mg PO BID 05/29/15 famotidine (Pepcid) 20 mg PO Daily 05/22/15 ferrous sulfate 325 mg PO Daily 06/02/15 heparin (heparin 5000 units/mL injectable solution) 5,000 unit SUB-Q Q8H 05/22/15 insulin detemir (Levemir FlexPen) 20 unit SUB-Q BID 05/21/15 lidocaine topical (Lidoderm 5% topical film ( patch)) 1 patch TOP Daily 05/20/15 metoprolol (metoprolol tartrate) 50 mg PO BID 05/20/15 pravastatin 40 mg PO Bedtime 05/23/15 (Suspended) ramipril (Altace) 2.5 mg PO Daily 05/21/15 remove patch 1 patch TOP Bedtime Unscheduled Meds: None PRN Meds (14): 05/20/15 Dextrose 50% in Water IV (Dextrose 50% Syringe) 12. 5 gm IVP PRN 05/20/15 Dextrose 50% in Water IV (Dextrose 50% Syringe) 25 gm IVP PRN 05/25/15 (Suspended) acetaminophen-hydro codone ([place] 7.5/325 oral tablet) 2 tab PO Q4H 05/25/15 acetaminophen 650 mg PO Q6H 05/20/15 glucagon 1 mg IM PRN 05/28/15 guaiFENesin 600 mg PO Q12H 05/25/15 hydrALAZINE 10 mg IV Q4H 05/20/15 insulin aspart 1 unit SUB-Q TID-Before Meals 05/20/15 insulin aspart 2 unit SUB-Q TID-Before Meals 05/20/15 insulin aspart 3 unit SUB-Q TID-Before Meals 05/20/15 insulin aspart 4 unit SUB-Q TID-Before Meals 05/20/15 insulin aspart 5 unit SUB-Q TID-Before Meals 05/24/15 lactulose 20 gm PO Q8H 05/24/15 senna (senna 8.6 mg oral tablet) 8.6 mg PO Bedtime One Time Meds (3): Continuous Infusions (1): 06/01/15 mannitol 12.5 gm + sodium bicar bonate 75 mEq + Sodium Chloride 0.45% IV 1,000 mL (mannitol 25% intravenous solution 12.5 gm + sodium bicarbonate 8.4% 75 mEq + Sodium Chloride 0.45%) 1,000 mL 50 ml/hr Labs: 36hr Labs 06/02 1134 Glucose POC 166 H 06/02 0610 Glucose Lvl 109 H BUN 14 Creatinine Lvl 0.89 Sodium Lvl 139 Potassium Lvl 3.9 Chloride Lvl 106 CO2 26 AGAP 10.9 Calcium Lvl 8.5 eGFR 82 Magnesium Lvl 1.9 WBC 8.4 RBC 2.90 L Hgb 8.6 L Hct 25.7 L MCV 88.7 MCH 29.8 MCHC 33.6 RDW 15.6 H Platelet 367 MPV 6.9 L Segs 61.9 Monocytes 5.9 Lymphocytes 30.7 Eosinophils 1.1 Basophils 0.4 Segs-Bands # 5.2 Lymphocytes # 2.6 Monocytes # 0.5 Eosinophils # 0.1 06/02 0554 Glucose POC 117 H 06/01 2118 Glucose POC 225 H 06/01 1647 Glucose POC 163 H 06/01 1434 Glucose POC 165 H 06/01 0529 Glucose POC 215 H 06/01 0500 ABO/Rh B POS Antibody Scrn Negative Glucose Lvl 222 H BUN 16 Creatinine Lvl 0.82 Sodium Lvl 138 Potassium Lvl 4.0 Chloride Lvl 101 CO2 29 AGAP 12.0 Calcium Lvl 8.9 eGFR 85 Magnesium Lvl 1.8 WBC 6.4 RBC 2.90 L Hgb 8.4 L Hct 25.8 L MCV 88.8 MCH 29.0 MCHC 32.6 RDW 15.5 H Platelet 369 MPV 7.0 L Physical Exam: Vitals Tmp(F) Tmp(C) Ttype B P MAP Pulse RR SpO2 FIO2 ETCO2 06/02 12:00 ---- ---- ---- - ---- --- 92 -- 94 --- --- 06/02 11:00 ---- ---- ---- 1 61/71 102 96 -- 98 --- --- 06/02 10:00 ---- ---- ---- 1 36/63 75 96 -- 95 --- --- 06/02 09:00 ---- ---- ---- 1 43/52 66 104 -- 85 --- --- 06/02 08:30 98.4 36.89 oral ----- --- --- -- --- --- --- 24 Hr Tmax: 98.7F (37.06c) at 06/02 05:2 1 24 Hr Tmin: 97.0F (36.11c) at 06/01 17:48 36 Hr Tmax: 99.3F (37.39c) at 06/01 13:0 0 36 Hr Tmin: 97.0F (36.11c) at 06/01 17:48 General: awake, alert, Head: surgical incisions are c/d/i ENT: no signs of trauma, or enlarged lymph nodes Pulmonary: chest symmetry with respirations, CTAB Cardiovascular: warm extremities, no pedal edema, regular rh ythm and rate, Abdomen: soft, non-tender, non-distended, Skin: left great big toe amputation site is covered in dress ing and is c/d/i Neurologic: awake, alert, oriented x 3 with no focal defici ts Sensation: decreased sensation to light touch bellow the ankle of LLE and bellow the patella of the RLE Musculoskeletal: / throughout bilateral upper and lower e xtremities Assessment/Plan: This is a 79 year old male with a PMH of PVD with critical limb ischemia to bilateral lower extremities and is s/p amputation of left great toe with exposed bone. He underwent a revascularization proce dure to the RLE on 05/21 and is to undergo revascularization procedure and a closure of the left toe wound by plastic surgery. He currently is deconditioned and PM&R is consulted for assessment of functional rehabilitation needs. IMPAIRMENTS: PVD Critical limb ischemia s/p revascularization to right lower extremity Impaired Gait Impaired mobility Deconditioning Bilateral Lower Extremity Weakness Impaired transfers Impaired self care Impaired ADLs Impaired IADLs Impaired vocation Impaired avocation Rehabilitation is recommended for patient to continue t o work with physical therapy and occupational therapy to increase functional independence. Patient will have physical therapy goals of increased independence with mobility and transfers, increased exerc ise tolerance, range of motion, strengthening and stretching. Patient will have occupational therapy goals of increased independence with ADLs, mobility and transfers Deconditioning -Paitent with significant deconditioning following surgical intervention for the critical limb ischemia -Continue to work with PT and OT to maximize functional gain s Pain left foot - Currently controlled on lidocaine topical patch DVT ppx - Continue sequential TEDs when in bed. Pressure ulcer ppx - Frequent turns q2 hrs and skin checks daily - family training by PT for mobilization. Disposition: - At this time, it appears the patient's surgical and medical issues are nearing the end. He has yet to formally work with PT and OT since the surgeries but it is anticapted that he is close to re aching his baseline and can be safely di scharged home. However will still need to formally see what PT and OT has to say about the patient's FIM scores in mobiliy, transfers, ambulation, and ADL&a pos;s prior to making an official recomm endation. PM&R anticapates that the patient can be discharged home with outpatient PT and OT to achieve full independence. Thank you for this consult. Seen and St affed with Dr. Winters, PM&R attending physician. If you have any questions or concerns, please do not hesitate to contact the PM&R pager. Trenton Vicente MD PGY-4 [facility] PM&R ATTENDING ATTESTATION / JENNIFER WINTERS MD ([phone], Pager [phone]): I performed a history and physical exami nation of the patient and discussed the management with the resident. I reviewed the note and agree with the documented findings and plan of care with any exceptions below. Patient will rbenefit from Home health OT and PT at discharg e. Plan of Care No Data Provided for This Section Social History Social History Date Source Social History TypeResponse 09/10/2014 [facility] Alcohol Never Smoking Status Never smoker; Exposure to Tobacco Smoke None; Cigarette Smoking Last 365 Days No; Reg Smoking Cessation Counseling No Family History No Data Provided for This Section Advance Directives No Data Provided for This Section Functional Status No Data Provided for This Section
[2020-03-13 20:41] LABS: Absolute Lymphocytes (CBC) 1.3 K/uL (0.7-4.9); Basophils % 0.6 % (0-1.3); Hematocrit 35.2 % (39.6-49.0); MPV 8.3 fL (7.6-11.3); RBC Red Blood Cell Count 3.92 M/uL (4.33-5.43)
[2020-03-13 20:44] LABS: Protime INR 1.12
[2020-03-13 21:01] LABS: Albumin 3.4 g/dL (3.4-5.0); Bilirubin Direct 0.2 mg/dL (0-0.2); Bilirubin Total 0.5 mg/dL (0.2-1.0); Magnesium 2.6 mg/dL (1.8-2.4); Potassium 4.6 mmol/L (3.5-5.1); Protein, Total 7.4 g/dL (6.4-8.2); Troponin (Emerg Dept Use Only) 0.04 ng/mL (0.0-0.045)
--- NOTE | 2020-03-13 21:16 | RAD REPORT ---
EXAM DESCRIPTION: Danay Single View03/13/2020 9:06 pm CLINICAL HISTORY: Shortness of breath COMPARISON: 2017 FINDINGS: Mild left basilar opacity appears low bit more prominent on the prior exam. This may repr esent a small area of pneumonia or atelectasis superimposed over chronic changes. Mild chronic right interstitial lung opacities The heart is mildly enlarged. Postsurgical changes involve the chest
[2020-03-13] MEDS ORDERED: FUROSEMIDE 20 MG/ 2ML VIAL ONE ×2 (21:21→22:35)
--- NOTE | 2020-03-13 21:27 | EDPHYS ---
Physician Documentation [facility] Name: William Denton Age: 84 yrs Sex: Male : 1935 Arrival Date: 03/13/2020 Time: 19:21 Bed 2 Private MD: ED Physician Edenilson Fields HPI: 03/13 20:24 This 84 yrs old Male presents to ER via Wheelchair with complaints of pm1 Breathing Difficulty, Fluid Retention. 20:24 The patient has shortness of breath at rest. Duration: The symptoms are continuous, and pm1 are steadily getting worse. The patient's shortness of breath is aggravated by light activity, supine position, is alleviated by nothing. Associated signs and symptoms: Pertinent positives: lower extremity swelling, Pertinent negatives: chest pain, non-productive cough, fever, nausea, vomiting. Severity of symptoms: in the emergency department the symptoms are worse. The patient has experienced similar episodes in the past, a few times, many years ago. The patient has been recently seen by a physician: the patient's primary care provider, Dr. Mayo. Patient with onset of shortness of breath and swelling to his legs on Sunday. He has not been able to sleep flat on his back since Sunday. Isai prescribed Lasix 20 mg PO every other day. 20:24 Patient is not having any issues with urination. pm1 Historical: - Allergies: 19:30 sulfamethoxazole-trimethoprim; jd3 - Home Meds: 19:30 aspirin 81 mg Oral chew 1 tab once daily [Active]; levemir [Active]; Plavix 75 mg Oral jd3 tab 1 tab once daily [Active]; magnesium oxide 400 mg Oral tab daily [Active]; levolhyoxine 50mg daily [Active]; pravastatin 40 mg Oral tab 1 tab once daily [Active]; ramipril 2.5 mg Oral cap 1 cap 2 times per day [Active]; ferrous sulfate 325 mg (65 mg iron) Oral tab twice a day [Active]; senna 8.6 mg Oral tab 2 tabs once daily for as needed [Active]; Furosemide Oral [Active]; - PMHx: 19:30 Diabetes - IDDM; Hypertension; Hypothyroidism; Myocardial infarction; jd3 - Immunization history:: Adult Immunizations up to date. - Social history:: Smoking status: Patient denies any tobacco usage or history of. ROS: 20:24 Constitutional: Negative for fever, chills, and weight loss, Abdomen/GI: Negative for pm1 abdominal pain, nausea, vomiting, diarrhea, and constipation. 20:24 Back: Negative for injury and pain, : Negative for injury, bleeding, discharge, and swelling, MS/Extremity: Negative for injury and deformity, Skin: Negative for injury, rash, and discoloration, Neuro: Negative for headache, weakness, numbness, tingling, and seizure. 20:24 Cardiovascular: Positive for edema, orthopnea, Negative for chest pain, palpitations. 20:24 Respiratory: Positive for shortness of breath. Exam: 20:24 Constitutional: This is a well developed, well nourished patient who is awake, alert, pm1 and in no acute distress. Head/Face: Normocephalic, atraumatic. Neck: Trachea midline, no thyromegaly or masses palpated, and no cervical lymphadenopathy. Supple, full range of motion without nuchal rigidity, or vertebral point tenderness. No Meningismus. 20:24 Back: No spinal tenderness. No costovertebral tenderness. Full range of motion. Skin: Warm, dry with normal turgor. Normal color with no rashes, no lesions, and no evidence of cellulitis. MS/ Extremity: Pulses equal, no cyanosis. Neurovascular intact. Full, normal range of motion. 20:24 Chest/axilla: Exam negative for acute changes, Inspection: normal, Palpation: is normal. 20:24 Cardiovascular: Rate: normal, Rhythm: regular, Pulses: no pulse deficits are appreciated, Edema: 2+ edema to level of bilateral lower extremities below the knees. 20:24 Respiratory: the patient does not display signs of respiratory distress, Breath sounds: decreased breath sounds, are located in both bases. 20:24 Abdomen/GI: Exam negative for acute changes, Palpation: abdomen is soft and non-tender, in all quadrants. 20:24 Neuro: Exam negative for acute changes, Orientation: is normal, Motor: is normal, moves all fours. Vital Signs: 19:30 BP 172 / 82; Pulse 94; Resp 17 S; Temp 98.9(O); Pulse Ox 98% on R/A; Weight 80.74 kg jd3 (R); Height 5 ft. 8 in. (172.72 cm) (R); Pain 0/10; 20:30 BP 165 / 85; Pulse 90; Resp 20; Pulse Ox 99% ; rr5 21:30 BP 165 / 109; Pulse 93; Resp 28; Pulse Ox 97% ; rr5 22:30 BP 164 / 87; Pulse 92; Resp 24; Pulse Ox 98% ; rr5 03/14 00:15 BP 161 / 81; Pulse 90; Resp 25; Pulse Ox 97% ; rr5 00:50 BP 154 / 85; Pulse 93; Resp 24; Temp 98; Pulse Ox 97% ; rr5 03/13 19:30 Body Mass Index 27.06 (80.74 kg, 172.72 cm) jd3 MDM: 03/13 20:18 Patient medically screened. pm1 21:24 Data reviewed: vital signs. Data interpreted: Pulse oximetry: on room air is 98 %. pm1 Interpretation: normal. Counseling: I had a detailed discussion with the patient and/or guardian regarding: the historical points, exam findings, and any diagnostic results supporting the discharge/admit diagnosis, lab results, radiology results, the need for further work-up and treatment in the hospital. 03/13 20:24 Order name: Basic Metabolic Panel; Complete Time: 21:04 pm1 03/13 20:24 Order name: CBC with Diff; Complete Time: 20:49 pm1 03/13 20:24 Order name: LFT's; Complete Time: 21:04 pm1 03/13 20:24 Order name: Magnesium; Complete Time: 21:04 pm1 03/13 20:24 Order name: NT PRO-BNP; Complete Time: 21:04 pm1 03/13 20:24 Order name: PT-INR; Complete Time: 20:49 pm1 03/13 20:24 Order name: Troponin (emerg Dept Use Only); Complete Time: 21:04 pm1 03/13 20:24 Order name: XRAY Chest (1 view); Complete Time: 21:23 pm1 03/13 21:08 Order name: COVID-19 pm1 03/13 22:07 Order name: Urine Dipstick--Ancillary (enter results); Complete Time: 22:44 ds4 03/14 00:12 Order name: SARS-COV-2 RT PCR; Complete Time: 00:18 EDMS 03/13 20:24 Order name: EKG; Complete Time: 20:25 pm1 03/13 20:24 Order name: Cardiac monitoring; Complete Time: 20:32 pm1 03/13 20:24 Order name: EKG - Nurse/Tech; Complete Time: 20:43 pm1 03/13 20:24 Order name: IV Saline Lock; Complete Time: 20:32 pm1 03/13 20:24 Order name: Labs collected and sent; Complete Time: 20:32 pm1 03/13 20:24 Order name: O2 Per Protocol; Complete Time: 20:32 pm1 03/13 20:24 Order name: O2 Sat Monitoring; Complete Time: 20:32 pm1 Administered Medications: 21:23 Drug: Lasix 20 mg Route: IVP; Site: right forearm; rr5 22:20 Follow up: Response: No adverse reaction rr5 22:24 Drug: Lasix 20 mg Route: IVP; Site: right forearm; rr5 23:20 Follow up: Response: No adverse reaction rr5 Disposition: 03/14 06:27 Co-signature as Attending Physician, Edenilson Fields MD. 7 Disposition: 03/13/20 21:25 Hospitalization ordered by Tavon Cheatham for Inpatient Admission. Preliminary diagnosis is Acute combined systolic (congestive) and diastolic (congestive) heart failure. - Bed requested for Telemetry/MedSurg (Inpatient). - Status is Inpatient Admission. sg - Condition is Stable. - Problem is new. - Symptoms are unchanged. Signatures: Dispatcher [employer] [facility] Deric Oropeza RN RN sg Toribio, Viral, MANAGER RELIABILITY-C MANAGER RELIABILITY-Cla1 Sary Price RN RN cg Jordan Suárez, HEAD OF LOSS PREVENTION HEAD OF LOSS PREVENTION pm1 Paulino Gustafson RN RN jTavon Bangura, RN RN rr5 Edenilson Fields MD MD 7 Corrections: (The following items were deleted from the chart) 03/13 23:01 21:09 CORONAVIRUS ordered. [facility] 03/14 00:12 03/13 21:25 Hospitalization Ordered by Tavon Cheatham MD for Inpatient Admission. 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 Bed requested for Telemetry/MedSurg (Inpatient). Status is Inpatient Admission. Condition is Stable. Problem is new. Symptoms are unchanged. pm1 11/01 00:57 00:12 03/13/2020 21:25 Hospitalization Ordered by Tavon Cheatham MD for Inpatient sg Admission. Preliminary diagnosis is Acute combined systolic (congestive) and diastolic (congestive) heart failure. Bed requested for Telemetry/MedSurg (Inpatient). Status is Inpatient Admission. Condition is Stable. Problem is new. Symptoms are unchanged. cg
--- NOTE | 2020-03-13 21:27 | ER ---
Nurse's Notes [facility] Name: William Denton Age: 84 yrs Sex: Male : 1935 Arrival Date: 03/13/2020 Time: 19:21 Bed 2 Private MD: Diagnosis: Acute combined systolic (congestive) and diastolic (congestive) heart failure Presentation: 03/13 19:27 Chief complaint: Patient states: "I have been retaining fluid on my lungs, I called my [facility] doctor and got some furosemide, but i am still not breathing to well. I am still retaining fluid in my legs.". Coronavirus screen: At this time, the client does not indicate any symptoms associated with coronavirus-19. Ebola Screen: Patient negative for fever greater than or equal to 101.5 degrees Fahrenheit, and additional compatible Ebola Virus Disease symptoms. Initial Sepsis Screen: Does the patient meet any 2 criteria? No. Patient's initial sepsis screen is negative. Does the patient have a suspected source of infection? No. Patient's initial sepsis screen is negative. Risk Assessment: Do you want to hurt yourself or someone else? Patient reports no desire to harm self or others. Onset of symptoms was March 08, 2020. 19:27 Method Of Arrival: Wheelchair jd3 19:27 Acuity: KARLA 3 jd3 Triage Assessment: 20:30 General: Appears in no apparent distress. uncomfortable, Behavior is calm, cooperative, rr5 appropriate for age. Respiratory: Onset: The symptoms/episode began/occurred gradually, the patient has mild shortness of breath. Historical: - Allergies: 19:30 sulfamethoxazole-trimethoprim; jd3 - Home Meds: 19:30 aspirin 81 mg Oral chew 1 tab once daily [Active]; levemir [Active]; Plavix 75 mg Oral jd3 tab 1 tab once daily [Active]; magnesium oxide 400 mg Oral tab daily [Active]; levolhyoxine 50mg daily [Active]; pravastatin 40 mg Oral tab 1 tab once daily [Active]; ramipril 2.5 mg Oral cap 1 cap 2 times per day [Active]; ferrous sulfate 325 mg (65 mg iron) Oral tab twice a day [Active]; senna 8.6 mg Oral tab 2 tabs once daily for as needed [Active]; Furosemide Oral [Active]; - PMHx: 19:30 Diabetes - IDDM; Hypertension; Hypothyroidism; Myocardial infarction; jd3 - Immunization history:: Adult Immunizations up to date. - Social history:: Smoking status: Patient denies any tobacco usage or history of. Screenin:33 Abuse screen: Denies threats or abuse. Denies injuries from another. Nutritional rr5 screening: No deficits noted. Tuberculosis screening: No symptoms or risk factors identified. Fall Risk IV access (20 points). Total Bowling Fall Scale indicates No Risk (0-24 pts). Assessment: 20:15 General: Appears in no apparent distress. uncomfortable, Behavior is calm, cooperative, rr5 appropriate for age. 20:15 Pain: Denies pain. Neuro: Level of Consciousness is awake, alert, obeys commands, rr5 Oriented to person, place, time. Cardiovascular: Reports leg edema Capillary refill < 3 seconds Patient's skin is warm and dry. Edema is 2+ to left foot and right foot Rhythm is sinus rhythm. Respiratory: Reports Airway is patent Respiratory effort is even, unlabored, Respiratory pattern is regular, symmetrical, GI: No signs and/or symptoms were reported involving the gastrointestinal system. : No signs and/or symptoms were reported regarding the genitourinary system. EENT: No signs and/or symptoms were reported regarding the EENT system. Derm: Skin is intact, is healthy with good turgor, Skin temperature is warm. Musculoskeletal: Circulation, motion, and sensation intact. Capillary refill < 3 seconds. 21:30 Reassessment: Patient appears in no apparent distress at this time. Patient and/or rr5 family updated on plan of care and expected duration. Pain level reassessed. Patient is alert, oriented x 3, equal unlabored respirations, skin warm/dry/pink. awaiting for results. 22:35 Reassessment: Patient appears in no apparent distress at this time. Patient is alert, rr5 oriented x 3, equal unlabored respirations, skin warm/dry/pink. awaiting for covid result Patient states symptoms have improved. 23:30 Reassessment: Patient appears in no apparent distress at this time. No changes from rr5 previously documented assessment. 03/14 00:29 Reassessment: Patient appears in no apparent distress at this time. Patient is alert, rr5 oriented x 3, equal unlabored respirations, skin warm/dry/pink. snacks given Patient states feeling better. Patient states symptoms have improved. Vital Signs: 03/13 19:30 BP 172 / 82; Pulse 94; Resp 17 S; Temp 98.9(O); Pulse Ox 98% on R/A; Weight 80.74 kg jd3 (R); Height 5 ft. 8 in. (172.72 cm) (R); Pain 0/10; 20:30 BP 165 / 85; Pulse 90; Resp 20; Pulse Ox 99% ; rr5 21:30 BP 165 / 109; Pulse 93; Resp 28; Pulse Ox 97% ; rr5 22:30 BP 164 / 87; Pulse 92; Resp 24; Pulse Ox 98% ; rr5 03/14 00:15 BP 161 / 81; Pulse 90; Resp 25; Pulse Ox 97% ; rr5 00:50 BP 154 / 85; Pulse 93; Resp 24; Temp 98; Pulse Ox 97% ; rr5 03/13 19:30 Body Mass Index 27.06 (80.74 kg, 172.72 cm) jd3 ED Course: 03/13 19:21 Patient arrived in ED. bp1 19:29 Triage completed. jd3 19:33 Arm band placed on. jd3 20:11 Jordan Suárez NP is PHCP. pm1 20:11 Edenilson Fields MD is Attending Physician. pm1 20:13 Tavon Blanco RN is Primary Nurse. rr5 20:30 Inserted saline lock: 20 gauge in right forearm, using aseptic technique. Blood rr5 collected. 20:35 Patient has correct armband on for positive identification. Placed in gown. Bed in low rr5 position. Call light in reach. Side rails up X2. playground monitor on. Pulse ox on. NIBP on. 21:06 XRAY Chest (1 view) In Process Unspecified. EDMS 21:25 Tavon Cheatham MD is Hospitalizing Provider. pm1 03/14 00:29 No provider procedures requiring assistance completed. Patient admitted, IV remains in rr5 place. intact, No redness/swelling at site. Administered Medications: 03/13 21:23 Drug: Lasix 20 mg Route: IVP; Site: right forearm; rr5 22:20 Follow up: Response: No adverse reaction rr5 22:24 Drug: Lasix 20 mg Route: IVP; Site: right forearm; rr5 23:20 Follow up: Response: No adverse reaction rr5 Intake: 20:50 vioded rr5 Output: 20:50 Other: 1; Total: 0ml. rr5 23:02 Urine: 200ml (Voided); Total: 200ml. lp1 03/14 00:13 Urine: 200ml (Voided); Total: 400ml. rr5 03/13 20:50 vioded rr5 Outcome: 21:25 Decision to Hospitalize by Provider. pm1 03/14 00:33 Admitted to Med/surg accompanied by tech, via stretcher, room 214, with chart, Report rr5 called to yan Condition: stable Instructed on the need for admit. 00:57 Patient left the ED. sg Signatures: Dispatcher [employer] EDMS Deric Oropeza, RN RN sg Lashawn Cervantes RN RN lp1 Jordan Suárez, SHIPPING AND RECEIVING MATERIAL HANDLER SHIPPING AND RECEIVING MATERIAL HANDLER pm1 Paulino Gustafson RN RN Tavon Haro RN RN rr5 Veronique Murphy Corrections: (The following items were deleted from the chart) 03/13 22:25 22:20 Reassessment: refused for covid swab hospitalist and mapping supervisor aware rr5 rr5
[2020-03-13 22:30] LABS: Urine Blood TRACE (NEG); Urine Glucose NEGATIVE (NEG); Urine Protein 1+ (NEG); Urine Specific Gravity 1.015 (1.005-1.030)
--- NOTE | 2020-03-13 22:54 | P.HP ---
Certification for Inpatient Patient admitted to: Observation With expected LOS: <2 Midnights Patient will require the following post-hospital care: None Practitioner: I am a practitioner with admitting privileges, knowledge of patient current condition, hospital course, and medical plan of care. Services: Services provided to patient in accordance with Admission requirements found in Title 42 Section 412.3 of the Code of Federal Regulations <Viral Rooney - Last Filed: 03/13/20 22:49> Patient History Date of Service: 03/13/20 Primary Care Provider: Dr. Dallas, Dr. Beasley Reason for admission: CHF Exacerbation History of Present Illness: 84-year-old male with history of chronic CHF-unknown ejection fraction, diabetes mellitus type 2, hypertension, BPH, hyperlipidemia, CAD, hypothyroidism presents emergency department for shortness of breath and swelling of the lower extremities. Patient reports that he has been having symptoms since Sunday but they continued to get worse. Patient was prescribed Lasix 20 mg by his PCP on but has not improved since then. Patient's workup in the emergency department shows elevated BNP 35869, troponin normal, chest x-ray without acute finding. Patient's renal function slightly worse than baseline, GFR today is 36, baseline GFR of around 45. Patient not hypoxic but does have significant pitting edema of the lower extremities to the level of the kwong. ED provider wishes to admit patient for further evaluation and management. When I saw the patient in the emergency department is awake, alert, oriented x3. Patient was mildly tachypneic, subjectively short of breath and did have 2 to 3+ pitting edema to the level of the kwong. Patient will be admitted for further evaluation and management. - Past Medical/Surgical History Diabetic: Yes -: Chronic CHF -: Diabetes mellitus type 2 -: CAD status post CABG -: Hypertension -: Hypothyroidism -: BPH -: COLON SX- 20 YRS AGO -: DOUBLE BYPASS -: Appendectomy -: TONSILLECTOMY -: OSTEOMYELITIS W/ TOE AMPUTATIONS -: skin graft Psychosocial/ Personal History: Patient is retired and lives alone although he does have the additional help around the house - Family History Father -: Cancer Mother -: Heart disease, Diabetes Notes: Heart attack - Social History Smoking Status: Never smoker Alcohol use: No CD- Drugs: No Caffeine use: No Place of Residence: Home <Viral Rooney - Last Filed: 03/13/20 22:49> Date of Service: 03/15/20 <Tavon Cheatham - Last Filed: 03/15/20 19:01> Allergies sulfamethoxazole [From Bactrim] Allergy (Intermediate, Verified 11/28/16 06:37) Nausea/Vomiting trimethoprim [From Bactrim] Allergy (Intermediate, Verified 03/14/20 01:13 CDT) Nausea/Vomiting hydrocodone Adverse Reaction (Verified 11/28/16 06:37) Shortness of breath Home Medications: Aspirin [Aspirin EC 81 MG] 1 tab PO DAILY 07/03/15 Calcium Carbonate/Vitamin D3 [Calcium 600-Vit D3 200 Tablet] 1 tab PO BID 07/03/15 Clopidogrel Bisulfate [Plavix*] 1 tab PO DAILY 07/03/15 Ferrous Sulfate [Ferrous Sulfate*] 1 tab PO DAILY 07/03/15 Insulin Detemir [Levemir*] 25 unit SQ DAILY AT SUPPER 07/03/15 Insulin Detemir [Levemir*] 35 units SQ DAILY WITH BREAKFAST 07/03/15 Levothyroxine [Synthroid*] 125 mcg PO [id number] 07/03/15 Pravastatin Sodium [Pravachol] 40 mg PO DAILY 07/03/15 Sennosides [Senna] 1 tab PO PRN PRN 04/28/16 Ascorbic Acid [Vitamin C] 1 tab PO DAILY 05/26/16 Zinc Sulfate [Zinc Sulfate*] 220 mg PO DAILY 05/26/16 Lactobacillus Acidophilus [Acidophilus] 1 each PO BID 11/27/16 Ramipril [Altace] 2.5 mg PO BID 11/27/16 Tamsulosin HCl [Flomax] 0.4 mg PO BEDTIME 08/14/18 Eye Vitamin 1 tab PO DAILY 03/14/20 Magnesium Oxide [Mag-Oxide Magnesium] 400 mg PO DAILY 03/14/20 Furosemide [Lasix] 40 mg PO DAILY 30 Days #30 tablet 03/15/20 carvediloL [Coreg*] 3.125 mg PO BID 30 Days #60 tab 03/15/20 Review of Systems 10-point ROS is otherwise unremarkable Respiratory: Cough, Dry, Shortness of Breath, SOB with Excertion <Viral Rooney - Last Filed: 03/13/20 22:49> Physical Examination - Physical Exam General: Alert, In no apparent distress, Oriented x3 HEENT: Atraumatic, Normocephalic, PERRLA Neck: Supple Respiratory: Crackles/rales (Bilaterally, while) Cardiovascular: Edema (Pitting edema to the level of the kwong bilaterally) Capillary refill: <2 Seconds Gastrointestinal: Normal bowel sounds Musculoskeletal: No contractures, No erythema, No tenderness Integumentary: No tenderness/swelling, No erythema, No warmth Neurological: Normal strength at 5/5 x4 extr, Normal tone, Sensation intact, Cranial nerves 3-12 intact - Studies Laboratory Data (last 24 hrs) 03/13/20 20:30: PT 13.2 H, INR 1.12 03/13/20 20:30: WBC 7.1, Hgb 11.7 L, Hct 35.2 L, Plt Count 186 03/13/20 20:30: Sodium 139, Potassium 4.6, BUN 40 H, Creatinine 1.80 H, Glucose 144 H, Magnesium 2.6 H, Total Bilirubin 0.5, AST 20, ALT 21, Alkaline Phosphatase 186 H <Viral Rooney - Last Filed: 03/13/20 22:49> Assessment and Plan - Plan Assessment Acute on chronic CHF exacerbation-unknown if systolic or diastolic dysfunction ELIZA on CKD 3 Diabetes mellitus type 2-insulin dependent Hypertension Hyperlipidemia Hypothyroidism CAD status post CABG Plan Acute on chronic CHF exacerbation-unknown if systolic or diastolic dysfunction: 1500 cc per day fluid restriction, IV diuresis with Lasix. Cardiology consult in place. No previous echocardiogram available for review. Patient reports that he had echocardiogram approximately 1 year ago with his filling station attendant Dr. Guy at [facility] but he would like to find a local filling station attendant work with. DVT prophylaxis heparin 5000 units subcutaneous twice daily. ELIZA on CKD 3: Likely cardiorenal, will continue with diuresis and recheck labs in the morning. Nephrology consult as necessary. Diabetes mellitus type 2-insulin dependent: A.c. HS Accu-Cheks insulin therapy. Hypertension: Obtain and continue home medications. Hyperlipidemia: Obtain and continue home medications. Hypothyroidism: Obtain and continue home medications. CAD status post CABG: Continue aspirin, Plavix. Discharge Plan: Home - Advance Directives Does patient have a Living Will: No Does patient have a Durable POA for Healthcare: No - Code Status/Comfort Care Code Status Assessed: Yes (Full code) Critical Care: No Time Spent Managing Pts Care (In Minutes): 55 <Viral Rooney - Last Filed: 03/13/20 22:49> - Plan Plan of care discussed with Viral Rooney, and I agree with the management plan as noted above. <Tavon Cheatham - Last Filed: 03/15/20 19:01>
[2020-03-14] MEDS ORDERED: MELATONIN 5 MG TABLET PO PRN (01:08)
[2020-03-14] MEDS ORDERED: ONDANSETRON 4 MG/2 ML VIAL IV PRN (01:08)
[2020-03-14 01:16] VITALS: BMI 29.5
[2020-03-14 03:26] LABS: Absolute Lymphocytes (CBC) 1.2 K/uL (0.7-4.9); Basophils % 0.6 % (0-1.3); Hematocrit 35.1 % (39.6-49.0); Lymphocytes % 16.3 % (15.3-44.8); MPV 8.5 fL (7.6-11.3)
[2020-03-14 03:54] LABS: Magnesium 2.4 mg/dL (1.8-2.4); Potassium 4.4 mmol/L (3.5-5.1); Thyroid Stimulating Hormone 0.667 uIU/mL (0.360-3.740)
[2020-03-14] MEDS: LEVOTHYROXINE SOD 0.125 MG TAB PO SCH (05:47)
[2020-03-14] MEDS: INSULIN -REGULAR HUMAN 50 UNIT/0.5 ML ML SQ SCH ×4 (07:30→21:04)
[2020-03-14] MEDS: CLOPIDOGREL 75 MG TABLET PO SCH (08:42)
[2020-03-14] MEDS: ASPIRIN EC 81 MG TAB PO SCH (08:42)
[2020-03-14] MEDS: FUROSEMIDE 40 MG/4 ML VIAL IV SCH ×2 (08:42→16:40)
[2020-03-14] MEDS: HEPARIN 5000 UNIT/ML 1 ML VIAL SQ SCH ×2 (08:42→21:07)
--- NOTE | 2020-03-14 10:11 | EKG ---
Test Date: 2020-03-13 Test Time: 20:46:17 Dye Operator: RR MEASUREMENT RESULTS: Intervals: Rate: 93 AL: 206 QRSD: 92 QT: 374 QTc: 465 [place]: P: 37 AL: 206 QRS: -1 T: 182 INTERPRETIVE STATEMENTS: Normal sinus rhythm Left ventricular hypertrophy with repolarization abnormality Abnormal ECG Compared to ECG 11/27/2016 14:14:10 Left ventricular hypertrophy now present Early repolarization now present Atrial fibrillation no longer present ST (T wave) deviation no longer present Electronically Signed On 03-14-20 10:10:01 QUARRY EQUIPMENT OPERATOR by Sean Galaviz
--- NOTE | 2020-03-14 10:56 | P.PN ---
Subjective Date of Service: 03/14/20 Primary Care Provider: Dr. Dallas, Dr. Beasley Chief Complaint: CHF Exacerbation Subjective: Improving (~1500ml UOP overnight, the patient reports breathing more comfortably, feels swelling is improving) Physical Examination - Vital Signs Temperature: 97.1 F Blood Pressure: 154/74 Pulse: 88 Respirations: 18 Pulse Ox (%): 94 - Physical Exam General: Alert, In no apparent distress, Oriented x3 HEENT: Sclerae nonicteric Neck: Supple Respiratory: Crackles/rales (Mild at bases bilaterally) Cardiovascular: Regular rate/rhythm, Edema (2+ pitting bilaterally to the knees) Gastrointestinal: Soft and benign, Non-distended, No tenderness Musculoskeletal: No tenderness Integumentary: Erythema (Left lower leg, somewhat excoriated) Neurological: Normal speech, Normal affect - Studies Laboratory Data (last 24 hrs) 03/13/20 20:30: PT 13.2 H, INR 1.12 03/13/20 20:30: WBC 7.1, Hgb 11.7 L, Hct 35.2 L, Plt Count 186 03/13/20 20:30: Sodium 139, Potassium 4.6, BUN 40 H, Creatinine 1.80 H, Glucose 144 H, Magnesium 2.6 H, Total Bilirubin 0.5, AST 20, ALT 21, Alkaline Phosphatase 186 H Assessment & Plan Physician Review Additional Text: Acute on chronic CHF exacerbation-unknown if systolic or diastolic dysfunction ELIZA on CKD 3 Diabetes mellitus type 2-insulin dependent Hypertension Hyperlipidemia Hypothyroidism CAD status post CABG Plan Acute on chronic CHF exacerbation-unknown if systolic or diastolic dysfunction: Continue IV diuresis with Lasix. good UOP Cardiology consulted - last echocardiogram 03/2019 in [place], when patient last saw his chronic condition nurse reports he had a stress test and echocardiogram at that time improving, but still with some SOB and moderate edema monitor renal function ELIZA on CKD 3: Likely cardiorenal, improved with diuresis unclear baseline, labs in EMR reveal possible baseline of 1.5 continue to monitor Diabetes mellitus type 2-insulin dependent: A.c. HS Accu-Cheks insulin therapy. Hypertension: continue home medications. Hyperlipidemia: continue home medications. Hypothyroidism: continue home medications. CAD status post CABG: Continue aspirin, Plavix. Dispo: anticipate dc home tomorrow after further diuresis Time Spent Managing Pts Care (In Minutes): 35
[2020-03-14] MEDS ORDERED: SENOSIDES 8.6 MG TAB PO PRN (10:57)
[2020-03-14] MEDS: ACETAMINOPHEN 500 MG TAB PO PRN (11:10)
--- NOTE | 2020-03-14 11:47 | CON ---
Date of Consultation: 03/14/2020 Reason For Consultation: CHF exacerbation. History Of Present Illness: Mr. Denton is an 84-year-old male. He in the past has seen Dr. Neal and he sees Dr. Dobbs for internal medicine care. He came in with pedal edema , cellulitis on the right leg, shortness of breath, PND, orthopnea, but no palpitation and no syncope . He denied any fever or chills. He denied any cough. He denied any chest pain. Past Medical History: Includes diabetes, hypertension, hypothyroidism, coronary artery disease. Medications: Include aspirin, Levemir, magnesium, levothyroxine, pravastatin, iron, ramipril, and fu rosemide. Allergies: HE IS ALLERGIC TO BACTRIM. Family History: Negative. Social History: Negative. Review of Systems: Negative. Physical Examination: Vital Signs: His initial blood pressure was 172/82. His blood pressure now is 150/70. He is in sin us rhythm. HEENT: Negative. Neck: Supple without any bruit. Chest: Revealed crackles both bases. Cardiac: Revealed a regular rhythm and rate. No murmurs, gallops, or rubs. Abdomen: Benign. Extremities: Revealed no clubbing or cyanosis. He had 2+ edema on the left, 2+ edema on the right w ith cellulitis of the right leg. Skin: Dry and intact. Neurologic: He was nonfocal. Diagnostic Data: His creatinine was 1.56. His white count was normal. He had a troponin of 0.05. His BNP was 13,576. Impression And Plan: Acute exacerbation of diastolic congestive heart failure. The patient now is o n aspirin, Plavix, Lasix, and levothyroxine. Has diuresed well overnight. I am not sure why he is n ot on carvedilol. He is on ramipril. We should consider low-dose beta-moraima, but I think an echoc ardiogram would be very reasonable to see what his ejection fraction is. He should be also on antibi otics for his cellulitis. His elevated troponin and elevated BNP are secondary to congestive heart f ailure. His EKG showed left ventricular hypertrophy. He has had coronary artery bypass graft before . A chest x-ray was fairly unremarkable, except for cardiomegaly. His other problems include diabet es that is fairly well controlled, hypertension that is well controlled, hypothyroidism. I would con tinue his regimen including the Lasix, definitely continue the pravastatin for his dyslipidemia, cons ider carvedilol, get an echo in the morning, and he can go home tomorrow if it is okay with Dr. Cheatham . He will follow up with Dr. Neal and Dr. Dobbs. The patient, however, has indicated that he would like to come see me and I will make arrangements for that as well. ZACK/JIMY Voice ID: [id number] Report ID: [id number]
[2020-03-14] MEDS: carvediloL 3.125 MG TAB PO SCH (18:32)
[2020-03-14] MEDS: CALCIUM CARB 500MG/VIT D 200 IU TAB PO SCH (21:00)
[2020-03-14] MEDS ORDERED: TAMSULOSIN 0.4 MG SR CAP PO SCH ×2 (21:00)
[2020-03-14] MEDS ORDERED: ATORVASTATIN 10 MG TAB PO SCH (21:00)
[2020-03-15] MEDS: ACETAMINOPHEN 500 MG TAB PO PRN (00:28)
[2020-03-15 04:22] LABS: Potassium 4.8 mmol/L (3.5-5.1)
[2020-03-15 05:34] VITALS: O2SAT 97
[2020-03-15] MEDS ORDERED: LEVOTHYROXINE SOD 0.125 MG TAB PO SCH (06:00)
[2020-03-15] MEDS: LEVOTHYROXINE SOD 0.125 MG TAB PO SCH (06:52)
[2020-03-15] MEDS: carvediloL 3.125 MG TAB PO SCH (06:52)
[2020-03-15] MEDS: INSULIN -REGULAR HUMAN 50 UNIT/0.5 ML ML SQ SCH ×2 (07:30→12:37)
[2020-03-15] MEDS: CLOPIDOGREL 75 MG TABLET PO SCH (08:33)
[2020-03-15] MEDS: CALCIUM CARB 500MG/VIT D 200 IU TAB PO SCH (08:33)
[2020-03-15] MEDS: FUROSEMIDE 40 MG/4 ML VIAL IV SCH (08:33)
[2020-03-15] MEDS: ASPIRIN EC 81 MG TAB PO SCH (08:33)
[2020-03-15] MEDS: HEPARIN 5000 UNIT/ML 1 ML VIAL SQ SCH ×2 (08:33→09:00)
[2020-03-15] MEDS ORDERED: ZINC SULFATE 220 MG CAP PO SCH (09:00)
[2020-03-15] MEDS ORDERED: FERROUS SULFATE 325 MG TAB PO SCH (09:00)
[2020-03-15] MEDS ORDERED: MAGNESIUM OXIDE 400 MG TAB PO SCH (09:00)
[2020-03-15 12:11] VITALS: BP 130/63; TEMP 97.2
--- NOTE | 2020-03-15 13:05 | P.DS ---
Admission Date: 03/14/20 Discharge Date: 03/15/20 Primary Care Provider: Dr. Dallas, Dr. Beasley Disposition: ROUTINE DISCHARGE Discharge Condition: GOOD Reason for Admission: CHF Exacerbation Consultations: Cardiology - Dr. Galaviz Procedures: CXR (03/13): Mild chronic right interstitial lung opacities, heart is mildly enlarged. Postsurgical changes involve the chest. Mild left basilar opacity appears a little bit more prominent on the prior exam. This may represent a small area of pneumonia or atelectasis superimposed over chronic changes. Echocardiogram (03/15): Performed prior to discharge, no read available Problem list Acute on chronic CHF exacerbation-unknown if systolic or diastolic dysfunction ELIZA on CKD 3 Diabetes mellitus type 2-insulin dependent Hypertension Hyperlipidemia Hypothyroidism CAD status post CABG Brief History of Present Illness: 84yo male, PMH: Chronic CHF (unknown type), DM 2, HTN, BPH, HLD, CAD, hypothyroidism who presented to the ED due to progressively worsening shortness of breath and bilateral lower extremity swelling. He was found to be in acute on chronic heart failure [place]ation[place] [address] and 2-3+ pitting edema. Hospital Course: Patient responded well to IV diuresis with Lasix 40 mg b.i.d. and he had continued improvement of his bilateral lower extremity edema. On day of discharge, patient was breathing more comfortably on room air, noted to have some dyspnea on exertion when working with physical therapy, felt much improved, and he was discharged home. Prior to discharge an echocardiogram was obtained. He will follow up with Dr. Galaviz in the next week who will go over the results with him. Patient is discharged home with home health and physical therapy, and with prescriptions for Lasix 40 mg daily and carvedilol 3.125 mg b.i.d. Patient does have some erythema of bilateral lower legs and the ankles, right > left. He reported these were chronic, and did not seem to be active cellulitis infection. Vital Signs/Physical Exam: Temp Pulse Resp BP Pulse Ox 97.2 F 74 18 130/63 95 03/15/20 12:00 03/15/20 12:00 03/15/20 12:00 03/15/20 12:00 03/15/20 12:00 General: Alert, In no apparent distress, Oriented x3 HEENT: Mucous membr. moist/pink, Sclerae nonicteric Neck: Supple Respiratory: Clear to auscultation bilaterally, Normal air movement Cardiovascular: Regular rate/rhythm, Edema (1-2+ b/l edema to mid-kwong) Gastrointestinal: Soft and benign, Non-distended, No tenderness Musculoskeletal: No tenderness Integumentary: Other (erythematous rash/lesions on b/l lower legs, no drainage, same temperature as surrounding skin) Neurological: Normal speech, Normal affect Laboratory Data at Discharge: WBC 7.4 K/uL (4.3-10.9) 03/14/20 02:49 Hgb 11.5 g/dL (13.6-17.9) L 03/14/20 02:49 Hct 35.1 % (39.6-49.0) L 03/14/20 02:49 Plt Count 188 K/uL (152-406) 03/14/20 02:49 PT 13.2 SECONDS (9.5-12.5) H 03/13/20 20:30 INR 1.12 03/13/20 20:30 Sodium 141 mmol/L (136-145) 03/15/20 03:47 Potassium 4.8 mmol/L (3.5-5.1) 03/15/20 03:47 BUN 42 mg/dL (7-18) H 03/15/20 03:47 Creatinine 1.54 mg/dL (0.55-1.3) H 03/15/20 03:47 Glucose 102 mg/dL (74-106) 03/15/20 03:47 Magnesium 2.0 mg/dL (1.8-2.4) 03/15/20 03:47 Total Bilirubin 0.5 mg/dL (0.2-1.0) 03/13/20 20:30 AST 20 U/L (15-37) 03/13/20 20:30 ALT 21 U/L (12-78) 03/13/20 20:30 Alkaline Phosphatase 186 U/L (45-117) H 03/13/20 20:30 Troponin I 0.04 ng/mL (0.0-0.045) 03/14/20 09:15 Home Medications: Aspirin [Aspirin EC 81 MG] 1 tab PO DAILY 07/03/15 Calcium Carbonate/Vitamin D3 [Calcium 600-Vit D3 200 Tablet] 1 tab PO BID 07/03/15 Clopidogrel Bisulfate [Plavix*] 1 tab PO DAILY 07/03/15 Ferrous Sulfate [Ferrous Sulfate*] 1 tab PO DAILY 07/03/15 Insulin Detemir [Levemir*] 25 unit SQ DAILY AT SUPPER 07/03/15 Insulin Detemir [Levemir*] 35 units SQ DAILY WITH BREAKFAST 07/03/15 Levothyroxine [Synthroid*] 125 mcg PO [id number] 07/03/15 Pravastatin Sodium [Pravachol] 40 mg PO DAILY 07/03/15 Sennosides [Senna] 1 tab PO PRN PRN 04/28/16 Ascorbic Acid [Vitamin C] 1 tab PO DAILY 05/26/16 Zinc Sulfate [Zinc Sulfate*] 220 mg PO DAILY 05/26/16 Lactobacillus Acidophilus [Acidophilus] 1 each PO BID 11/27/16 Ramipril [Altace] 2.5 mg PO BID 11/27/16 Tamsulosin HCl [Flomax] 0.4 mg PO BEDTIME 08/14/18 Eye Vitamin 1 tab PO DAILY 03/14/20 Magnesium Oxide [Mag-Oxide Magnesium] 400 mg PO DAILY 03/14/20 Furosemide [Lasix] 40 mg PO DAILY 30 Days #30 tablet 03/15/20 carvediloL [Coreg*] 3.125 mg PO BID 30 Days #60 tab 03/15/20 New Medications: carvediloL [Coreg*] 3.125 mg PO BID 30 Days #60 tab Furosemide [Lasix] 40 mg PO DAILY 30 Days #30 tablet Patient Discharge Instructions: follow up with PCP within 3-5 days. follow up with Cardiology in 1-2 weeks. Change in prescriptions: Take furosemide (Lasix) 40mg once a day. Take Carvedilol (Coreg) 3.125mg twice a day Diet: ADA Activity: Ad karolina Followup: Sean Galvaiz MD [ACTIVE - CAN ADMIT] - Unknown,U [Primary Care Provider] - Time spent managing pt's care (in minutes): 35
--- NOTE | 2020-03-16 08:50 | ECHO ---
HEIGHT: 5 ft 8 in WEIGHT: 188 lb 0 oz DATE OF STUDY: 03/15/[address]: Sean Galaviz MD 2-DIMENSIONAL: YES M.MODE: YES DOPPLER: YES COLOR FLOW: YES TDS: NO PORTABLE: NO DEFINITY: NO BUBBLE STUDY: NO DIAGNOSIS: CONGESTIVE HEART FAILURE CARDIAC HISTORY: CATHERIZATION: NO SURGERY: YES PROSTHETIC VALVE: NO PACEMAKER: NO MEASUREMENTS (cm) DIASTOLIC (NORMALS) SYSTOLIC (NORMALS) IVSd 1.0 (0.6-1.2) LA Diam 4.6 (1.9-4.0) LVEF 47% LVIDd 5.0 (3.5-5.7) LVIDs 3.8 (2.0-3.5) %FS 24% LVPWd 1.0 (0.6-1.2) Ao Diam 2.6 (2.0-3.7) 2 DIMENSIONAL ASSESSMENT: RIGHT ATRIUM: NORMAL LEFT ATRIUM: ENLARGED RIGHT VENTRICLE: NORMAL LEFT VENTRICLE: BORDERLINE FUNCTION TRICUSPID VALVE: MITRAL VALVE: MITRAL ANNULAR CALCIFICATION PULMONIC VALVE: NORMAL AORTIC VALVE: PERICARDIAL EFFUSION: NONE AORTIC ROOT: NORMAL LEFT VENTRICULAR WALL MOTION: MILD GLOBAL HYPOKINESIS. DOPPLER/COLOR FLOW: SEE BELOW. COMMENTS: LEFT VENTRICULAR EJECTION FRACTION IS BORDERLINE LOW NORMAL 50-55% WITH MILD GLOBAL HYPOKINESIS. MODERATE TRICUSPID REGURGITATION. MILD MITRAL REGURGIATION. SEVERE MITRAL ANNULAR CALCIFICATION. AT LEAST MODERATE AORTIC STENOSIS. MILD AORTIC INSUFFICIENCY. RECOMMEND FOCUSED STUDY TO GET CONTINOUS WAVE OF MITRAL VALVE. LEFT ATRIAL ENLARGEMENT. TECHNOLOGIST: Blayne WAN
== END 2020-03-15 15:48 | disposition home health service (06) | DRG 291 ==
LOC: ER 19:18 → ERHOLD 23:12 → 2ND 03-14 00:35 → OBSVTOIN 03-14 14:26
PROVIDERS: ADMIT Hospitalist; ATTEND Hospitalist
DX: I13.0 Hypertensive heart and chronic kidney disease with heart failure and stage 1 through stage 4 chronic kidney disease, or unspecified chronic kidney disease (principal); I50.33 Acute on chronic diastolic (congestive) heart failure; N17.9 Acute kidney failure, unspecified; N18.30 Chronic kidney disease, stage 3 unspecified; E11.22 Type 2 diabetes mellitus with diabetic chronic kidney disease; E03.9 Hypothyroidism, unspecified; E78.5 Hyperlipidemia, unspecified; I25.10 Atherosclerotic heart disease of native coronary artery without angina pectoris; I25.2 Old myocardial infarction; Z79.82 Long term (current) use of aspirin; Z79.02 Long term (current) use of antithrombotics/antiplatelets; Z79.4 Long term (current) use of insulin; Z79.899 Other long term (current) drug therapy; Z79.890 Hormone replacement therapy; Z95.1 Presence of aortocoronary bypass graft; Z90.49 Acquired absence of other specified parts of digestive tract; Z89.429 Acquired absence of other toe(s), unspecified side; Z60.2 Problems related to living alone; Z88.5 Allergy status to narcotic agent; Z88.1 Allergy status to other antibiotic agents; Z20.828 Contact with and (suspected) exposure to other viral communicable diseases
CPT/HCPCS: 36415; 71045; 80048; 80076; 81003; 82947; 83735; 83880; 84439; 84443; 84484; 85025; 85610; 93005; 93306; 96374; 97116; 97161; 97530; 99285; G0378; J1644; J1940; U0003

== ENCOUNTER 2020-07-07 15:44 | Inpatient (IN) | payer OTHER ==
[2020-07-07 16:45] LABS: Absolute Lymphocytes (CBC) 1.5 K/uL (0.7-4.9); Basophils % 0.8 % (0-1.3); Hematocrit 33.4 % (39.6-49.0); Lymphocytes % 19.4 % (15.3-44.8); MPV 9.9 fL (7.6-11.3); RBC Red Blood Cell Count 3.71 M/uL (4.33-5.43)
[2020-07-07 17:02] LABS: Albumin 3.4 g/dL (3.4-5.0); Bilirubin Direct 0.3 mg/dL (0-0.2); Bilirubin Total 0.7 mg/dL (0.2-1.0); Potassium 4.9 mmol/L (3.5-5.1); Protein, Total 7.8 g/dL (6.4-8.2)
[2020-07-07] MEDS ORDERED: NA CHLORIDE 0.9% 500 ML ONE (17:14)
--- NOTE | 2020-07-07 17:14 | RAD REPORT ---
EXAM DESCRIPTION: RAD - Chest Single View - 07/07/2020 5:04 pm CLINICAL HISTORY: DYSPNEA Chest pain. COMPARISON: Chest Single View dated 03/13/2020; Chest Single View dated 11/30/2016; Chest Single View dated 11/27/2016; Chest Single View dated 05/23/2016 FINDINGS: Portable technique limits examination quality. Mild interstitial edema suspected. Small right pleural effusion. The heart is moderately enlarged in size. No displaced fractures.Sternotomy wires present. IMPRESSION: Mild CHF.
[2020-07-07 17:37] LABS: SARS-COV-2 RT PCR NEGATIVE (NEGATIVE)
[2020-07-07 17:53] LABS: Urine Bacteria <20 /HPF (NONE SEEN); Urine RBC NONE SEEN /HPF (NONE SEEN)
[2020-07-07 17:56] LABS: Urine Blood NEGATIVE (NEG); Urine Glucose NEGATIVE (NEG); Urine Protein 1+ (NEG); Urine Specific Gravity 1.015 (1.005-1.030); Urine pH 5.5 (5.0-7.0)
--- NOTE | 2020-07-07 17:59 | RAD REPORT ---
EXAM DESCRIPTION: CT - Abdomen Pelvis Wo Contrast - 07/07/2020 5:49 pm CLINICAL HISTORY: Abdominal pain. decreased appetite COMPARISON: CT ABD PELVIS W CONTRAST dated 07/02/2015 TECHNIQUE: CT imaging of the abdomen and pelvis was performed without contrast. Solid organ, bowel a nd vascular assessment is limited due to lack of IV and oral contrast. All CT scans are performed using dose optimization technique as appropriate and may include automated exposure control or mA/KV adjustment according to patient size. FINDINGS: Small bilateral pleural effusions are noted, larger on the right.Cholecystectomy. The liver, spleen, pancreas, adrenal glands and left kidney are within normal limits for a limited no n-contrast examination.Punctate caliceal right renal calculi without hydronephrosis. No bowel obstruction, free air, free fluid or abscess. Postsurgical changes affect the sigmoid colon. Nonvisualized appendix. Heavy aortic atherosclerosis. The osseous structures are within normal limits. IMPRESSION: No acute intra-abdominal or pelvic findings. Small bilateral pleural effusions, larger on the right. Punctate right renal calculi. A limited non-contrast examination was performed as detailed.
--- NOTE | 2020-07-07 18:28 | EDPHYS ---
Physician Documentation [facility] Name: William Denton Age: 84 yrs Sex: Male : 1935 Arrival Date: 07/07/2020 Time: 15:47 Bed 6 Private MD: Scot Dobbs R ED Physician Thomas Cheatham HPI: 07/07 18:00 This 84 yrs old Male presents to ER via Ambulatory with complaints of General rn Weakness, Decreased Appetite. 18:00 Reports generalized weakness, decreased appetite, runny nose, and fatigue for 3 days. rn No fever. No vomiting or diarrhea. No urinary symptoms. No known sick contacts. . Onset: The symptoms/episode began/occurred 3 day(s) ago. Severity of symptoms: At their worst the symptoms were moderate in the emergency department the symptoms are unchanged. The patient has not experienced similar symptoms in the past. The patient has not recently seen a physician. Historical: - Allergies: 16:05 sulfamethoxazole-trimethoprim; ca1 16:05 Codeine; ca1 - Home Meds: 16:07 aspirin 81 mg Oral chew 1 tab once daily [Active]; ferrous sulfate 325 mg (65 mg iron) ca1 Oral tab twice a day [Active]; Plavix 75 mg Oral tab 1 tab once daily [Active]; levolhyoxine 50mg daily [Active]; levemir [Active]; furosemide 40 mg oral tab once daily [Active]; pravastatin 40 mg Oral tab 1 tab once daily [Active]; ramipril 2.5 mg Oral cap 1 cap 2 times per day [Active]; senna 8.6 mg Oral tab 2 tabs once daily for as needed [Active]; magnesium oxide 400 mg Oral tab daily [Active]; - PMHx: 16:05 Diabetes - IDDM; Hypertension; Hypothyroidism; Myocardial infarction; ca1 - PSHx: 16:05 Appendectomy; ca1 - Immunization history:: Pneumococcal vaccine is up to date, Flu vaccine is up to date. - Social history:: Smoking status: Patient denies any tobacco usage or history of. - Family history:: not pertinent. - Hospitalizations: : No recent hospitalization is reported. ROS: 18:00 Constitutional: Negative for fever, chills Eyes: Negative for injury, pain, redness, rn and discharge, ENT: + nasal congestion Neck: Negative for injury, pain, and swelling, Cardiovascular: Negative for chest pain, palpitations, and edema, Respiratory: Negative for shortness of breath, cough, wheezing, and pleuritic chest pain, Abdomen/GI: Negative for abdominal pain,vomiting, diarrhea, and constipation, Back: Negative for injury and pain, : Negative for injury, bleeding, discharge, and swelling, MS/Extremity: Negative for injury and deformity, Skin: Negative for injury, rash, and discoloration, Neuro: Negative for headache, numbness, tingling, and seizure. Exam: 18:00 Constitutional: Thin male, no acute distress Head/Face: Normocephalic, atraumatic. marketing operations intern: dry MM Cardiovascular: Regular rate and rhythm. No pulse deficits. Respiratory: No increased work of breathing, no retractions or nasal flaring. Abdomen/GI: soft, non-tender Skin: Warm, dry MS/ Extremity: Pulses equal, no cyanosis. Neurovascular intact. Full, normal range of motion. Equal circumference. Neuro: Awake and alert, GCS 15, oriented to person, place, time, and situation. Cranial nerves II-XII grossly intact. Motor strength 4/5 in all extremities. Sensory grossly intact. Vital Signs: 16:02 BP 130 / 64; Pulse 70; Resp 16 S; Temp 97.6(TE); Pulse Ox 99% on R/A; Weight 80.29 kg ca1 (R); Height 5 ft. 8 in. (172.72 cm) (R); Pain 0/10; 18:45 BP 176 / 83; Pulse 68; Resp 16; Pulse Ox 100% ; sv 19:23 BP 166 / 83; Pulse 69; Resp 17; Temp 97.5; Pulse Ox 99% ; rr5 21:02 BP 153 / 83; Pulse 69; Resp 18; Pulse Ox 98% on R/A; ea 16:02 Body Mass Index 26.91 (80.29 kg, 172.72 cm) ca1 MDM: 16:12 Patient medically screened. rn 18:23 Differential Diagnosis Generalized weakness, dehydration, UTI, COVID. Data reviewed: rn vital signs, nurses notes, lab test result(s), radiologic studies, CT scan, plain films, and as a result, I will admit patient. Counseling: I had a detailed discussion with the patient and/or guardian regarding: the historical points, exam findings, and any diagnostic results supporting the discharge/admit diagnosis, lab results, radiology results, the need for further work-up and treatment in the hospital. Response to treatment: the patient's symptoms have mildly improved after treatment, and as a result, I will admit patient. Admission orders: after a detailed discussion of the patient's condition and case, the admit orders are written by me. ED course: Pt with severe dehydration, no acute findings on CXR or CT abdomen, neg COVID, will admit for gentle rehydration, given CHF with already pleural effusions on CXR. 60:1 bun:Cr ratio. . 07/07 16:21 Order name: CBC with Diff 07/07 16:21 Order name: Basic Metabolic Panel 07/07 16:21 Order name: Hepatic Function 07/07 16:21 Order name: Lipase 07/07 16:21 Order name: CBC with Automated Diff; Complete Time: 17:16 EDLA 07/07 16:22 Order name: Basic Metabolic Panel; Complete Time: 17:16 EDLA 07/07 16:22 Order name: Liver (Hepatic) Function; Complete Time: 17:16 EDLA 07/07 16:22 Order name: Lipase; Complete Time: 17:16 EDLA 07/07 16:22 Order name: Urine Microscopic Only; Complete Time: 18:07 07/07 17:37 Order name: COVID-19/FLU A+B; Complete Time: 17:52 EDLA 07/07 17:46 Order name: Urine Dipstick--Ancillary (enter results) 07/07 16:21 Order name: IV Start; Complete Time: 16:53 07/07 16:21 Order name: Labs collected and sent; Complete Time: 16:53 07/07 16:21 Order name: XRAY Chest (1 view); Complete Time: 17:16 07/07 16:22 Order name: Urine Dipstick-Ancillary (obtain specimen); Complete Time: 17:37 07/07 17:31 Order name: CT Abd/Pelvis - Without Contrast; Complete Time: 18:07 07/07 17:47 Order name: Urine Dipstick-Ancillary; Complete Time: 18:07 [facility] 07/07 19:24 Order name: CONS Physician Consult EDMS Administered Medications: 17:06 Drug: NS 0.9% 500 ml Route: IV; Rate: bolus; Site: right forearm; iw 19:00 Follow up: Response: No adverse reaction; IV Status: Completed infusion; IV Intake: rr5 500ml Disposition: 07/07/20 18:28 Hospitalization ordered by Jorgito Mcmahon for Observation. Preliminary diagnosis are Dehydration, Weakness. - Bed requested for Telemetry/MedSurg (observation). - Status is Observation. ea - Condition is Stable. - Problem is new. - Symptoms have improved. Signatures: Dispatcher [employer] EDMS Debbie Villafuerte, RN RN iw Thomas Cheatham MD MD rn Lasagna, Tonya RN RN tl1 Tiffanie Quiros RN ELHAM ea Yaritza Montoya RN RN ca1 Tavon Blanco RN rr5 Corrections: (The following items were deleted from the chart) 16:50 16:23 Influenza Screen (A \T\ B)+BA.LAB.BRZ ordered. EDMS EDMS 16:51 16:26 CORONAVIRUS+MR.LAB.BRZ ordered. EDMS EDMS 20:54 18:28 Hospitalization Ordered by Jorgito Mcmahon MD for Observation. Preliminary tl1 diagnosis is Dehydration; Weakness. Bed requested for Telemetry/MedSurg (observation). Status is Observation. Condition is Stable. Problem is new. Symptoms have improved. rn 21:27 20:54 07/07/2020 18:28 Hospitalization Ordered by Jorgito Mcmahon MD for Observation. ea Preliminary diagnosis is Dehydration; Weakness. Bed requested for Telemetry/MedSurg (observation). Status is Observation. Condition is Stable. Problem is new. Symptoms have improved. tl1
--- NOTE | 2020-07-07 18:28 | ER ---
Nurse's Notes [facility] Name: William Denton Age: 84 yrs Sex: Male : 1935 Arrival Date: 07/07/2020 Time: 15:47 Bed 6 Private MD: Scot Dobbs R Diagnosis: Dehydration;Weakness Presentation: 07/07 16:02 Chief complaint: Patient states: I am just listless, nauseous, no appetite since ca1 Sunday. Coronavirus screen: Client denies travel out of the [place] in the last 14 days. nausea, Client presents with at least one sign or symptom that may indicate coronavirus-19. Standard/surgical mask placed on the client. Provider contacted for isolation considerations. Ebola Screen: Patient negative for fever greater than or equal to 101.5 degrees Fahrenheit, and additional compatible Ebola Virus Disease symptoms Patient denies exposure to infectious person. Patient denies travel to an Ebola-affected area in the 21 days before illness onset. No symptoms or risks identified at this time. Initial Sepsis Screen: Does the patient meet any 2 criteria? No. Patient's initial sepsis screen is negative. Does the patient have a suspected source of infection? No. Patient's initial sepsis screen is negative. Risk Assessment: Do you want to hurt yourself or someone else? Patient reports no desire to harm self or others. Onset of symptoms was July 07, 2020. 16:02 Method Of Arrival: Ambulatory ca1 16:02 Acuity: KARLA 3 ca1 Historical: - Allergies: 16:05 sulfamethoxazole-trimethoprim; ca1 16:05 Codeine; ca1 - Home Meds: 16:07 aspirin 81 mg Oral chew 1 tab once daily [Active]; ferrous sulfate 325 mg (65 mg iron) ca1 Oral tab twice a day [Active]; Plavix 75 mg Oral tab 1 tab once daily [Active]; levolhyoxine 50mg daily [Active]; levemir [Active]; furosemide 40 mg oral tab once daily [Active]; pravastatin 40 mg Oral tab 1 tab once daily [Active]; ramipril 2.5 mg Oral cap 1 cap 2 times per day [Active]; senna 8.6 mg Oral tab 2 tabs once daily for as needed [Active]; magnesium oxide 400 mg Oral tab daily [Active]; - PMHx: 16:05 Diabetes - IDDM; Hypertension; Hypothyroidism; Myocardial infarction; ca1 - PSHx: 16:05 Appendectomy; ca1 - Immunization history:: Pneumococcal vaccine is up to date, Flu vaccine is up to date. - Social history:: Smoking status: Patient denies any tobacco usage or history of. - Family history:: not pertinent. - Hospitalizations: : No recent hospitalization is reported. Screenin:58 Abuse screen: Denies threats or abuse. Denies injuries from another. Nutritional iw screening: No deficits noted. Tuberculosis screening: No symptoms or risk factors identified. Fall Risk IV access (20 points). Assessment: 17:00 General: Appears in no apparent distress. Behavior is calm, cooperative. General: iw Reports feeling ill for 2-3 days, fatigue for 2-3 days. Pain: Denies pain. Neuro: Level of Consciousness is awake, alert, obeys commands, Oriented to person, place, time, situation, Moves all extremities. Full function. Cardiovascular: Patient's skin is warm and dry. Respiratory: Respiratory effort is even, unlabored, Respiratory pattern is regular, symmetrical. Derm: Skin is intact, is healthy with good turgor. Musculoskeletal: Range of motion: intact in all extremities. 18:50 Reassessment: Patient appears in no apparent distress at this time. Patient and/or iw family updated on plan of care and expected duration. Pain level reassessed. Patient is alert, oriented x 3, equal unlabored respirations, skin warm/dry/pink. 19:21 General: Appears in no apparent distress. comfortable, Behavior is calm, cooperative, rr5 appropriate for age, awaiting for room assignment. Neuro: Level of Consciousness is awake, alert, obeys commands, Oriented to person, place, time. Cardiovascular: Capillary refill < 3 seconds Patient's skin is warm and dry. Respiratory: Airway is patent Respiratory effort is even, unlabored, Respiratory pattern is regular, symmetrical. Derm: Skin is intact, is healthy with good turgor. Musculoskeletal: Range of motion:. 20:39 Reassessment: Patient and/or family updated on plan of care and expected duration. Pain ea level reassessed. Patient is alert, oriented x 3, equal unlabored respirations, skin warm/dry/pink. Awaiting on room assignment. 21:26 Reassessment: Patient and/or family updated on plan of care and expected duration. Pain ea level reassessed. Patient is alert, oriented x 3, equal unlabored respirations, skin warm/dry/pink. Report given to receiving nurse. Pt left ED via stretcher per pest control service technician. Pt tolerating well. Vital Signs: 16:02 BP 130 / 64; Pulse 70; Resp 16 S; Temp 97.6(TE); Pulse Ox 99% on R/A; Weight 80.29 kg ca1 (R); Height 5 ft. 8 in. (172.72 cm) (R); Pain 0/10; 18:45 BP 176 / 83; Pulse 68; Resp 16; Pulse Ox 100% ; sv 19:23 BP 166 / 83; Pulse 69; Resp 17; Temp 97.5; Pulse Ox 99% ; rr5 21:02 BP 153 / 83; Pulse 69; Resp 18; Pulse Ox 98% on R/A; ea 16:02 Body Mass Index 26.91 (80.29 kg, 172.72 cm) ca1 ED Course: 15:47 Patient arrived in ED. ag5 15:47 Scot Dobbs MD is Private Physician. ag5 16:04 Triage completed. ca1 16:07 Arm band placed on right wrist. ca1 16:12 Thomas Cheatham MD is Attending Physician. rn 16:21 Debbie Villafuerte RN is Primary Nurse. iw 16:44 Initial lab(s) drawn, by me, sent to lab. Inserted saline lock: 20 gauge in right iw forearm, using aseptic technique. Blood collected. 17:04 XRAY Chest (1 view) In Process Unspecified. EDMS 17:48 CT Abd/Pelvis - Without Contrast In Process Unspecified. EDMS 18:28 Jorgito Mcmahon MD is Hospitalizing Provider. rn 19:22 Patient has correct armband on for positive identification. Placed in gown. Bed in low rr5 position. Call light in reach. Pulse ox on. NIBP on. 19:43 No provider procedures requiring assistance completed. Patient admitted, IV remains in ea place. Administered Medications: 17:06 Drug: NS 0.9% 500 ml Route: IV; Rate: bolus; Site: right forearm; iw 19:00 Follow up: Response: No adverse reaction; IV Status: Completed infusion; IV Intake: rr5 500ml Intake: 19:00 IV: 500ml; Total: 500ml. rr5 Outcome: 18:28 Decision to Hospitalize by Provider. rn 19:43 Condition: stable ea 19:43 Instructed on the need for admit, Demonstrated understanding of instructions. 21:25 Admitted to Med/surg accompanied by tech, via stretcher, room 224, with chart, Report ea called to Receiving nurse 21:27 Patient left the ED. ea Signatures: Dispatcher [employer] EDLe Ponce, RN Debbie Barbosa RN RN iw Nieto, Roman, MD MD rn Antunez, Elena, RN RN ea Roque, Raymond, RN RN rr5 Yaritza Montoya RN Melida Fair ag5
[2020-07-07] MEDS ORDERED: ACETAMINOPHEN 500 MG TAB PO PRN (21:47)
[2020-07-07] MEDS: NA CHLORIDE 0.9% 1,000 ML IV SCH (22:27)
--- NOTE | 2020-07-08 00:11 | P.HP ---
Certification for Inpatient Patient admitted to: Inpatient With expected LOS: >2 Midnights Patient will require the following post-hospital care: None Practitioner: I am a practitioner with admitting privileges, knowledge of patient current condition, hospital course, and medical plan of care. Services: Services provided to patient in accordance with Admission requirements found in Title 42 Section 412.3 of the Code of Federal Regulations <Eldon Montague - Last Filed: 07/08/20 00:05> Patient History Date of Service: 07/08/20 Primary Care Provider: Dr. Dobbs Reason for admission: Acute Kidney Failure, Dehydration History of Present Illness: This is a 84-year-old male with a history of insulin-dependent diabetes mellitus, hypertension, hypothyroidism, myocardial infarction, congestive heart failure, double bypass history. Patient stated that he has had a 3 day history of generalized weakness, decreased appetite, rhinorrhea, fatigued but denies fever, vomiting, or diarrhea. Patient stated that he has not been eating or drinking well over the past few days and feels that he is getting worse. Patient was worked up in the emergency room and found to have a sodium of 138, potassium 4.9, chloride 109, bicarb 21, BUN in 121, creatinine 2.17, glucose 134. Patient had a white cell count of 7.8, hemoglobin 11, hematocrit 33.4, platelet 165. Patient was negative for SARs and negative for influenza. Patient had CT of the abdomen and pelvis completed along with chest x-ray one-view. Both without acute findings. Past medical history shows trended elevation in creatinine but today almost 0.5 higher on his creatinine and markedly higher on his BUN. Patient was hydrated in the emergency room and medicine was consulted at that time for further evaluation for acute renal dysfunction. Home medications list reviewed: Yes - Past Medical/Surgical History Has patient received pneumonia vaccine in the past: Yes Diabetic: Yes -: Chronic CHF -: Diabetes mellitus type 2 -: CAD status post CABG -: Hypertension -: Hypothyroidism -: BPH -: colon CA 1995 -: COLON SX- 20 YRS AGO -: DOUBLE BYPASS -: Appendectomy -: TONSILLECTOMY -: OSTEOMYELITIS W/ TOE AMPUTATIONS -: skin graft-rt toe -: skin graft Psychosocial/ Personal History: Patient is retired and lives alone although he does have the additional help around the house - Family History Father -: Cancer Mother -: Heart disease, Diabetes Notes: Heart attack - Social History Smoking Status: Never smoker Smoking therapy provided: No Alcohol use: No CD- Drugs: No Caffeine use: No Place of Residence: Home <Eldon Montague - Last Filed: 07/08/20 00:05> Date of Service: 07/08/20 <Jorgito Mcmahon - Last Filed: 07/12/20 03:29> Allergies sulfamethoxazole [From Bactrim] Allergy (Intermediate, Verified 07/07/20 22:14) Nausea/Vomiting trimethoprim [From Bactrim] Allergy (Intermediate, Verified 07/07/20 22:14) Nausea/Vomiting hydrocodone Adverse Reaction (Verified 07/07/20 22:14) Shortness of breath Home Medications: Carvedilol [Coreg] 3.125 mg PO DAILY 07/08/20 Clopidogrel Bisulfate [Plavix] 75 mg PO DAILY 07/08/20 Furosemide [Lasix] 40 mg PO DAILY 07/08/20 Gabapentin 300 mg PO BEDTIME 07/08/20 Insulin Detemir [Levemir] 20 units SQ DAILY AT SUPPER 07/08/20 Insulin Detemir [Levemir] 30 units SQ BREAKFAST 07/08/20 Levothyroxine [Synthroid*] 0.125 mg PO DAILY 07/08/20 Ramipril 2.5 mg PO BID 07/08/20 Tamsulosin HCl [Flomax] 0.4 mg PO BEDTIME 07/08/20 Valacyclovir [Valtrex*] 500 mg PO DAILY 07/08/20 Review of Systems General: Weakness, Malaise Eyes: Unremarkable ENT: Unremarkable Respiratory: Unremarkable Cardiovascular: Unremarkable Gastrointestinal: Nausea Genitourinary: Unremarkable Musculoskeletal: Unremarkable Integumentary: Unremarkable Neurological: Weakness (Generalize) Lymphatics: Unremarkable <Eldon Montague - Last Filed: 07/08/20 00:05> Physical Examination - Vital Signs Temperature: 97.6 F Blood Pressure: 179/79 Pulse: 98 Respirations: 18 Pulse Ox (%): 98 - Physical Exam General: Alert, In no apparent distress, Oriented x3, Cooperative HEENT: PERRLA, Other (Mucous membranes dry), EOMI Neck: Supple, 2+ carotid pulse no bruit, JVD not distended, No Thyromegaly Respiratory: Clear to auscultation bilaterally, Normal air movement Cardiovascular: No edema, Normal pulses, Regular rate/rhythm, Normal S1 S2, No gallops, No rubs, No murmurs Capillary refill: <2 Seconds Gastrointestinal: Normal bowel sounds, Soft and benign, Non-distended, No ascites, No tenderness, No masses, No rebound, No guarding Musculoskeletal: No clubbing, No swelling, No contractures, No erythema, No tenderness, No warmth Integumentary: No rashes, No breakdown, No significant lesion, No tenderness/swelling, No erythema, No warmth, No cyanosis Neurological: Normal speech, Normal strength at 5/5 x4 extr, Normal tone, Sensation intact, Cranial nerves 3-12 intact, Normal affect Lymphatics: No axilla or inguinal lymphadenopathy - Studies Laboratory Data (last 24 hrs) 07/07/20 16:30: Sodium 138, Potassium 4.9, BUN 121 H, Creatinine 2.17 H, Glucose 134 H, Total Bilirubin 0.7, AST 19, ALT 31, Alkaline Phosphatase 212 H, Lipase 182 07/07/20 16:30: WBC 7.80, Hgb 11.0 L, Hct 33.4 L, Plt Count 165 <Eldon Montague - Last Filed: 07/08/20 00:05> Assessment and Plan - Problems (Diagnosis) (1) IDDM (insulin dependent diabetes mellitus) Current Visit: Yes Status: Chronic Plan: Will continue to monitor glucose throughout his stay. Patient was placed on an ADA diet. Will be given insulin as needed. (2) Congestive heart failure Current Visit: Yes Status: Chronic Plan: although the patient is not in acute heart failure we will monitor this closely as patient is requiring fluid resuscitation for dehydration and acute renal failure. Will diurese as needed. Qualifiers: Heart failure type: unspecified Heart failure chronicity: chronic Qualified Code(s): I50.9 - Heart failure, unspecified (3) Dehydration Current Visit: Yes Status: Acute Plan: Patient has been placed on normal saline at 75 mL/hour and will be lightly hydrated for the next several hr to increase his renal function. We will check CBC and BMP in the a.m. (4) Acute renal injury Current Visit: Yes Status: Acute Plan: Patient had 0.5 elevation in creatinine from baseline. Patient also has markedly elevated BUN. Needs criteria for acute renal injury with chronic renal insufficiency. Patient's control officer manager has been consulted. We will continue to lightly hydrate over the next 24 hr and see if his renal function is to improve. (5) Hypertension Onset Date: 05/29/16 Current Visit: Yes Status: Chronic Plan: We will monitor patient's blood pressure will be given medicine as needed to maintain systolic blood pressure less than 160 diastolic blood pressure less than 90. Qualifiers: Hypertension type: essential hypertension Qualified Code(s): I10 - Essential (primary) hypertension Discharge Plan: Home Plan to discharge in: 48 Hours - Advance Directives Does patient have a Living Will: Yes Does patient have a Durable POA for Healthcare: Yes - Code Status/Comfort Care Code Status Assessed: No Critical Care: No Time Spent Managing Pts Care (In Minutes): 70 <Eldon Montague - Last Filed: 07/08/20 00:05> - Problems (Diagnosis) (1) Acute kidney injury Current Visit: Yes Status: Acute (2) Uremic encephalopathy syndrome Current Visit: Yes Status: Acute (3) Anorexia nervosa, unspecified Current Visit: Yes Status: Acute (4) Hypertension Onset Date: 05/29/16 Current Visit: Yes Status: Chronic Qualifiers: Hypertension type: essential hypertension Qualified Code(s): I10 - Essential (primary) hypertension (5) IDDM (insulin dependent diabetes mellitus) Current Visit: Yes Status: Chronic (6) History of coronary artery bypass graft x 2 Current Visit: No Status: Acute (7) CAD (coronary artery disease) Onset Date: 05/29/16 Current Visit: No Status: Chronic Qualifiers: Coronary Disease-Associated Artery/Lesion type: unspecified vessel or lesion type [place] vs. transplanted heart: [place] heart Associated angina: without angina Qualified Code(s): I25.10 - Atherosclerotic heart disease of [place] coronary artery without angina pectoris (8) History of colon cancer Current Visit: No Status: Chronic (9) Hyperlipidemia Onset Date: 05/29/16 Current Visit: No Status: Chronic Qualifiers: Hyperlipidemia type: unspecified Qualified Code(s): E78.5 - Hyperlipidemia, unspecified (10) PAD (peripheral artery disease) Onset Date: 05/29/16 Current Visit: No Status: Chronic <Jorgito Mcmahon - Last Filed: 07/12/20 03:29> Date of Service: 07/08/20 Continue with plan of care as mentioned below. Patient is clinically having nausea and vomiting. Will go ahead and start some antiemetics and maybe try some prokinetic agents. Nephrology consultation. <Jorgito Mcmahon - Last Filed: 07/12/20 03:29>
[2020-07-08] MEDS: ONDANSETRON 4 MG/2 ML VIAL IV PRN ×4 (03:31→18:35)
[2020-07-08 04:50] LABS: Absolute Lymphocytes (CBC) 1.8 K/uL (0.7-4.9); Basophils % 0.5 % (0-1.3); Hematocrit 33.3 % (39.6-49.0); Lymphocytes % 24.9 % (15.3-44.8); MPV 9.7 fL (7.6-11.3); RBC Red Blood Cell Count 3.73 M/uL (4.33-5.43)
[2020-07-08 05:00] LABS: Potassium 5.2 mmol/L (3.5-5.1)
[2020-07-08] MEDS: NA CHLORIDE 0.9% 1,000 ML IV SCH (09:15)
--- NOTE | 2020-07-08 12:54 | P.PN ---
Subjective Date of Service: 07/08/20 Patient with significant uremia. This has pretty much taken away his appetite. This probably is also causing his muscle weakness. Uremia is greater than 100. He was in the 40s less than a year ago and then he went up to the 70s by this May. He may be headed towards dialysis. I would need Nephrology to assess and determine if he is safe for discharge at this time, or if we need to continue with aggressive hydration. Otherwise we may need further intervention. Review of Systems 10-point ROS is otherwise unremarkable Physical Examination - Vital Signs Temperature: 97.6 F Blood Pressure: 168/80 Pulse: 73 Respirations: 17 Pulse Ox (%): 97 - Physical Exam General: Alert, In no apparent distress, Oriented x3 Respiratory: Clear to auscultation bilaterally, Normal air movement Cardiovascular: Regular rate/rhythm, Normal S1 S2, No murmurs Gastrointestinal: Normal bowel sounds, Soft and benign, Non-distended, No tenderness Musculoskeletal: No clubbing, No swelling, No tenderness Neurological: Normal strength at 5/5 x4 extr, Sensation intact, Cranial nerves 3-12 intact - Studies Laboratory Data (last 24 hrs) 07/07/20 16:30: Sodium 138, Potassium 4.9, BUN 121 H, Creatinine 2.17 H, Glucose 134 H, Total Bilirubin 0.7, AST 19, ALT 31, Alkaline Phosphatase 212 H, Lipase 182 07/07/20 16:30: WBC 7.80, Hgb 11.0 L, Hct 33.4 L, Plt Count 165 Medications List Reviewed: Yes Assessment & Plan - Problems (Diagnosis) (1) Acute kidney injury Current Visit: Yes Status: Acute (2) Uremic encephalopathy syndrome Current Visit: Yes Status: Acute (3) Anorexia nervosa, unspecified Current Visit: Yes Status: Acute (4) Hypertension Onset Date: 05/29/16 Current Visit: Yes Status: Chronic Qualifiers: Hypertension type: essential hypertension Qualified Code(s): I10 - Essential (primary) hypertension (5) IDDM (insulin dependent diabetes mellitus) Current Visit: Yes Status: Chronic (6) History of coronary artery bypass graft x 2 Current Visit: No Status: Acute (7) CAD (coronary artery disease) Onset Date: 05/29/16 Current Visit: No Status: Chronic Qualifiers: Coronary Disease-Associated Artery/Lesion type: unspecified vessel or lesion type [place] vs. transplanted heart: [place] heart Associated angina: without angina Qualified Code(s): I25.10 - Atherosclerotic heart disease of [place] coronary artery without angina pectoris (8) History of colon cancer Current Visit: No Status: Chronic (9) Hyperlipidemia Onset Date: 05/29/16 Current Visit: No Status: Chronic Qualifiers: Hyperlipidemia type: unspecified Qualified Code(s): E78.5 - Hyperlipidemia, unspecified (10) PAD (peripheral artery disease) Onset Date: 05/29/16 Current Visit: No Status: Chronic - Plan Plan: 1. Continue with IV hydration 2. Nephrology consultation 3. At this time patient does not really meet inpatient criteria even though patient has significant uremic symptoms. Will discuss with Nephrology regarding plan of care 4. Continue with monitoring labs closely 5. Patient may need appetite stimulant but I think once we get the uremia improved with her through hydration or through dialysis patient's appetite will get better 6. Strict blood pressure and blood sugar control 7. GI and DVT prophylaxis Discharge Plan: Home Plan to discharge in: 48 Hours - Advance Directives Does patient have a Living Will: Yes Does patient have a Durable POA for Healthcare: Yes - Code Status/Comfort Care Code Status Assessed: Yes Code Status: Full Code Critical Care: No Time Spent Managing PTS Care (In Minutes): 35
--- NOTE | 2020-07-08 19:37 | P.CNS ---
Date of Consult: 07/08/20 Reason for Consult: ELIZA Requesting Physician: Jorgito Mcmahon Primary Care Provider: Dr. Dobbs Chief Complaint: Acute Kidney Failure, Dehydration History of Present Illness: This is a 84-year-old male with a history of insulin-dependent diabetes mellitus, hypertension, hypothyroidism, myocardial infarction, congestive heart failure, double bypass history. Patient stated that he has had a 3 day history of generalized weakness, decreased appetite, rhinorrhea, fatigued but denies fever, vomiting, or diarrhea. Patient stated that he has not been eating or drinking well over the past few days and feels that he is getting worse. Patient was worked up in the emergency room and found to have a sodium of 138, potassium 4.9, chloride 109, bicarb 21, BUN in 121, creatinine 2.17, glucose 134. Patient had a white cell count of 7.8, hemoglobin 11, hematocrit 33.4, platelet 165. Patient was negative for SARs and negative for influenza. Patient had CT of the abdomen and pelvis completed along with chest x-ray one-view. Both without acute findings. Past medical history shows trended elevation in creatinine but today almost 0.5 higher on his creatinine and markedly higher on his BUN. Patient was hydrated in the emergency room and medicine was consulted at that time for further evaluation for acute renal dysfunction. 18:00 This 84 yrs old Male presents to ER via Ambulatory with complaints of General rn Weakness, Decreased Appetite. 18:00 Reports generalized weakness, decreased appetite, runny nose, and fatigue for 3 days. rn No fever. No vomiting or diarrhea. No urinary symptoms. No known sick contacts. . Onset: The symptoms/episode began/occurred 3 day(s) ago. Severity of symptoms: At their worst the symptoms were moderate in the emergency department the symptoms are unchanged. The patient has not experienced similar symptoms in the past. The patient has not recently seen a physician. Allergies sulfamethoxazole [From Bactrim] Allergy (Intermediate, Verified 07/07/20 22:14) Nausea/Vomiting trimethoprim [From Bactrim] Allergy (Intermediate, Verified 07/07/20 22:14) Nausea/Vomiting hydrocodone Adverse Reaction (Verified 07/07/20 22:14) Shortness of breath Home medications list reviewed: Yes Home Medications: Carvedilol [Coreg] 3.125 mg PO DAILY 07/08/20 Clopidogrel Bisulfate [Plavix] 75 mg PO DAILY 07/08/20 Furosemide [Lasix] 40 mg PO DAILY 07/08/20 Gabapentin 300 mg PO BEDTIME 07/08/20 Insulin Detemir [Levemir] 20 units SQ DAILY AT SUPPER 07/08/20 Insulin Detemir [Levemir] 30 units SQ BREAKFAST 07/08/20 Levothyroxine [Synthroid*] 0.125 mg PO DAILY 07/08/20 Ramipril 2.5 mg PO BID 07/08/20 Tamsulosin HCl [Flomax] 0.4 mg PO BEDTIME 07/08/20 Valacyclovir [Valtrex*] 500 mg PO DAILY 07/08/20 - Past Medical/Surgical History Diabetic: Yes -: Chronic CHF -: Diabetes mellitus type 2 -: CAD status post CABG -: Hypertension -: Hypothyroidism -: BPH -: colon CA 1995 -: COLON SX- 20 YRS AGO -: DOUBLE BYPASS -: Appendectomy -: TONSILLECTOMY -: OSTEOMYELITIS W/ TOE AMPUTATIONS -: skin graft-rt toe -: skin graft Psychosocial/ Personal History: Patient is retired and lives alone although he does have the additional help around the house - Family History Father Medical History: Cancer Mother Medical History: Heart disease, Diabetes Notes: Heart attack - Social History Smoking Status: Never smoker Alcohol use: No CD- Drugs: No Caffeine use: No Place of Residence: Home Review of Systems 10-point ROS is otherwise unremarkable General: Weakness, Malaise Neurological: Weakness Physical Examination Temp Pulse Resp BP Pulse Ox 97.7 F 78 17 177/80 H 97 07/08/20 16:00 07/08/20 16:00 07/08/20 16:00 07/08/20 16:00 07/08/20 16:00 General: In no apparent distress, Cooperative HEENT: Atraumatic Neck: Supple Respiratory: Clear to auscultation bilaterally Cardiovascular: No edema, Regular rate/rhythm Gastrointestinal: Soft and benign, Non-distended Musculoskeletal: No clubbing, No contractures Integumentary: No rashes, No cyanosis Neurological: Normal speech Blood work reviewed in the chart. Imagings Data: EXAM DESCRIPTION: CT - Abdomen Pelvis Wo Contrast - 07/07/2020 5:49 pm CLINICAL HISTORY: Abdominal pain. decreased appetite COMPARISON: CT ABD PELVIS W CONTRAST dated 07/02/2015 TECHNIQUE: CT imaging of the abdomen and pelvis was performed without contrast. Solid organ, bowel and vascular assessment is limited due to lack of IV and oral contrast. All CT scans are performed using dose optimization technique as appropriate and may include automated exposure control or mA/KV adjustment according to patient size. FINDINGS: Small bilateral pleural effusions are noted, larger on the righ t.Cholecystectomy. The liver, spleen, pancreas, adrenal glands and left kidney are within normal limits for a limited non-contrast examination.Punctate caliceal right renal calculi without hydronephrosis. No bowel obstruction, free air, free fluid or abscess. Postsurgical changes affect the sigmoid colon. Nonvisualized appendix. Heavy aortic atherosclerosis. The osseous structures are within normal limits. IMPRESSION: No acute intra-abdominal or pelvic findings. Small bilateral pleural effusions, larger on the right. Punctate right renal calculi. A limited non-contrast examination was performed as detailed. EXM DESCRIPTION: RAD - Chest Single View - 07/07/2020 5:04 pm CLINICAL HISTORY: DYSPNEA Chest pain. COMPARISON: Chest Single View dated 03/13/2020; Chest Single View dated 11/30/2016; Chest Single View dated 11/27/2016; Chest Single View dated 05/23/2016 FINDINGS: Portable technique limits examination quality. Mild interstitial edema suspected. Small right pleural effusion. The heart is moderately enlarged in size. No displaced fractures.Sternotomy wires present. IMPRESSION: Mild CHF. Conclusions/Impression: A/P ELIZA with uremia likely due to hypovolemia CKD III with proteinuria -Change IVF 1/2NS -No NSAIDs Hyperkalemia -Renal diet Hypocalcemia -Start Vitamin D HTN with CKD/ CHF -Increase Coreg 6.25mg BID -Hold ramipril at this time Diastolic CHF BL Pleural Effusion -Repeat the CXR in the AM DM II with CKD -Continue Lantus Anemia in chronic illness -Monitor H&H BPH with LUTS -Continue tamsulosin Thank you kindly for the consultation.
[2020-07-08] MEDS: GABAPENTIN 300 MG CAP PO SCH (21:00)
[2020-07-08] MEDS: MELATONIN 5 MG TABLET PO PRN (22:12)
[2020-07-08] MEDS: TAMSULOSIN 0.4 MG SR CAP PO SCH (22:13)
[2020-07-09] MEDS: NACHLORIDE 0.45% 1,000 ML IV SCH ×3 (01:17→16:57)
[2020-07-09 06:16] LABS: Absolute Lymphocytes (CBC) 1.2 K/uL (0.7-4.9); Basophils % 0.4 % (0-1.3); Hematocrit 36.3 % (39.6-49.0); Lymphocytes % 18.4 % (15.3-44.8); MPV 9.4 fL (7.6-11.3); RBC Red Blood Cell Count 3.99 M/uL (4.33-5.43)
[2020-07-09] MEDS: LEVOTHYROXINE SOD 0.125 MG TAB PO SCH (06:18)
[2020-07-09 06:29] LABS: Albumin 3.4 g/dL (3.4-5.0); Bilirubin Total 0.9 mg/dL (0.2-1.0); Magnesium 2.6 mg/dL (1.8-2.4); Phosphorus 3.6 mg/dL (2.5-4.9); Potassium 5.1 mmol/L (3.5-5.1); Protein, Total 7.7 g/dL (6.4-8.2)
[2020-07-09 06:30] LABS: Uric Acid 9.5 mg/dL (3.5-7.2)
--- NOTE | 2020-07-09 07:47 | RAD REPORT ---
EXAM DESCRIPTION: RAD - Chest Pa And Lat (2 Views) - 07/09/2020 5:08 am CLINICAL HISTORY: CHF COMPARISON: July 07 TECHNIQUE: Frontal and lateral views of the chest were obtained. FINDINGS: The lungs are underinflated. Atelectasis changes are present in both lower lung vázquez. In terstitial pattern is similar to the comparison study. Heart size and vasculature have diminished i n prominence. Sternotomy wires are present. No pneumothorax or enlarging pleural effusion. No acute b trisha finding noted. No aortic abnormality. IMPRESSION: Partial clearing of the mild CHF/ volume overload findings of July 07.
[2020-07-09] MEDS ORDERED: carvediloL 3.125 MG TAB PO SCH (09:00)
[2020-07-09] MEDS: FUROSEMIDE 40 MG TABLET PO SCH (09:54)
[2020-07-09] MEDS: VITAMIN D 5,000 UNIT CAP PO SCH (09:55)
[2020-07-09] MEDS: CLOPIDOGREL 75 MG TABLET PO SCH (09:55)
[2020-07-09] MEDS: VALACYCLOVIR 500 MG TAB PO SCH (09:55)
[2020-07-09] MEDS: carvediloL 3.125 MG TAB PO SCH (09:55)
[2020-07-09] MEDS: INSULIN GLARGINE 100 UNITS/ML SQ SCH (11:30)
[2020-07-09] MEDS ORDERED: ERYTHROMYCIN 200 MG/5ML 100ML PO SCH (12:14)
[2020-07-09] MEDS: ERYTHROMYCIN 250 MG PO SCH (16:55)
--- NOTE | 2020-07-09 20:19 | P.PN ---
Date of Service: 07/09/20 Vital Signs Temp Pulse Resp BP Pulse Ox 97.5 F 71 10 L 136/63 97 07/09/20 16:00 07/09/20 16:00 07/09/20 16:00 07/09/20 16:00 07/09/20 16:00 Medications Acetaminophen (Acetaminophen 500 Mg Tab) 500 mg PO Q6H PRN PRN Reason: Pain scale 2-4 (Mild) Last Admin: 07/07/20 22:27 Dose: 500 mg Documented by: Carvedilol (Carvedilol 3.125 Mg Tab) 6.25 mg PO DAILY [facility] Last Admin: 07/09/20 09:55 Dose: 6.25 mg Documented by: Cholecalciferol (Vitamin D 5,000 Unit Cap) 5,000 unit PO DAILY [facility] Last Admin: 07/09/20 09:55 Dose: 5,000 unit Documented by: Clopidogrel Bisulfate (Clopidogrel 75 Mg Tablet) 75 mg PO DAILY [facility] Last Admin: 07/09/20 09:55 Dose: 75 mg Documented by: Enteral Nutritional Formula (Glucerna Shake 237 Ml Can) 237 ml PO BID [facility] Furosemide (Furosemide 40 Mg Tablet) 40 mg PO DAILY [facility] Last Admin: 07/09/20 09:54 Dose: 40 mg Documented by: Gabapentin (Gabapentin 300 Mg Cap) 300 mg PO BEDTIME [facility] Last Admin: 07/08/20 21:00 Dose: Not Given Documented by: Sodium Chloride (Sodium Chloride 0.45%) 1,000 mls @ 50 mls/hr IV .Q20H [facility] Last Admin: 07/09/20 16:57 Dose: 1,000 mls Documented by: Insulin Glargine (Insulin Glargine 100 Units/Ml) 15 units SQ BREAKFAST [facility] Last Admin: 07/09/20 11:30 Dose: 15 units Documented by: Levothyroxine Sodium (Levothyroxine Sod 0.125 Mg Tab) 0.125 mg PO DAILYAC [facility] Last Admin: 07/09/20 06:18 Dose: 0.125 mg Documented by: Melatonin (Melatonin 5 Mg Tablet) 10 mg PO BEDTIME PRN PRN PRN Reason: INSOMNIA Last Admin: 07/08/20 22:12 Dose: 10 mg Documented by: Erythromycin Dr 250 (Mg Tablet) 1 ea PO AC [facility] Last Admin: 07/09/20 16:55 Dose: 1 ea Documented by: Sodium Chloride (Flush Normal Saline 10 Ml) 10 ml IV BID [facility] Last Admin: 07/09/20 09:00 Dose: Not Given Documented by: Tamsulosin HCl (Tamsulosin 0.4 Mg Sr Cap) 0.4 mg PO BEDTIME [facility] Last Admin: 07/08/20 22:13 Dose: 0.4 mg Documented by: Valacyclovir HCl (Valacyclovir 500 Mg Tab) 500 mg PO DAILY [facility] Last Admin: 07/09/20 09:55 Dose: 500 mg Documented by: Assessment/ Plan: Nephrology CPS stable without CP or SOB. Persistent N/V with anorexia. No acute events overnight. Vitals, medications, blood work and imaging reviewed in the chart. General: In no apparent distress, Cooperative HEENT: Atraumatic Neck: Supple Respiratory: Clear to auscultation bilaterally Cardiovascular: No edema, Regular rate/rhythm Gastrointestinal: Soft and benign, Non-distended Musculoskeletal: No clubbing, No contractures Integumentary: No rashes, No cyanosis Neurological: Normal speech Blood work reviewed in the chart. Imagings Data: EXAM DESCRIPTION: CT - Abdomen Pelvis Wo Contrast - 07/07/2020 5:49 pm CLINICAL HISTORY: Abdominal pain. decreased appetite COMPARISON: CT ABD PELVIS W CONTRAST dated 07/02/2015 TECHNIQUE: CT imaging of the abdomen and pelvis was performed without contrast. Solid organ, bowel and vascular assessment is limited due to lack of IV and oral contrast. All CT scans are performed using dose optimization technique as appropriate and may include automated exposure control or mA/KV adjustment according to patient size. FINDINGS: Small bilateral pleural effusions are noted, larger on the right.Ch olecystectomy. The liver, spleen, pancreas, adrenal glands and left kidney are within normal limits for a limited non-contrast examination.Punctate caliceal right renal calculi without hydronephrosis. No bowel obstruction, free air, free fluid or abscess. Postsurgical changes affect the sigmoid colon. Nonvisualized appendix. Heavy aortic atherosclerosis. The osseous structures are within normal limits. IMPRESSION: No acute intra-abdominal or pelvic findings. Small bilateral pleural effusions, larger on the right. Punctate right renal calculi. A limited non-contrast examination was performed as detailed. EXM DESCRIPTION: RAD - Chest Single View - 07/07/2020 5:04 pm CLINICAL HISTORY: DYSPNEA Chest pain. COMPARISON: Chest Single View dated 03/13/2020; Chest Single View dated 11/30/2016; Chest Single View dated 11/27/2016; Chest Single View dated 05/23/2016 FINDINGS: Portable technique limits examination quality. Mild interstitial edema suspected. Small right pleural effusion. The heart is moderately enlarged in size. No displaced fractures.Sternotomy wires present. IMPRESSION: Mild CHF. Conclusions/Impression: A/P ELIZA with uremia likely due to hypovolemia CKD III with proteinuria -Reduce IVF 1/2NS -No NSAIDs Hyperkalemia -Renal diet Hypocalcemia -Continue Vitamin D Hyperuricemia HTN with CKD/ CHF -Continue Coreg 6.25mg BID -Hold ramipril at this time Diastolic CHF BL Pleural Effusion -CXR with improving CHF DM II with CKD -Continue Lantus Anemia in chronic illness -Monitor H&H BPH with LUTS -Continue tamsulosin
[2020-07-09] MEDS: GLUCERNA SHAKE 237 ML CAN PO SCH (21:00)
[2020-07-09] MEDS: GABAPENTIN 300 MG CAP PO SCH (21:00)
[2020-07-09] MEDS: TAMSULOSIN 0.4 MG SR CAP PO SCH (21:07)
[2020-07-09] MEDS: MELATONIN 5 MG TABLET PO PRN (21:07)
[2020-07-10] MEDS: ERYTHROMYCIN 250 MG PO SCH ×3 (06:47→16:30)
[2020-07-10] MEDS: LEVOTHYROXINE SOD 0.125 MG TAB PO SCH (06:47)
[2020-07-10] MEDS ORDERED: METOCLOPRAMIDE 10 MG/2mL INJ IV STA (07:57)
[2020-07-10] MEDS: INSULIN GLARGINE 100 UNITS/ML SQ SCH (08:00)
[2020-07-10 08:36] LABS: Urine Appearance CLEAR; Urine Bilirubin NEGATIVE (NEG); Urine Blood TRACE (NEG); Urine Color YELLOW; Urine Glucose NEGATIVE (NEG); Urine Protein 1+ (NEG); Urine Specific Gravity 1.015 (1.005-1.030); Urine Urobilinogen 0.2 mg/dL (0.2-1.0)
[2020-07-10] MEDS: GLUCERNA SHAKE 237 ML CAN PO SCH ×2 (09:00→21:00)
[2020-07-10 09:15] LABS: Urine Bacteria <20 /HPF (NONE SEEN); Urine RBC <5 /HPF (NONE SEEN)
[2020-07-10] MEDS: NACHLORIDE 0.45% 1,000 ML IV SCH (11:09)
[2020-07-10] MEDS: carvediloL 3.125 MG TAB PO SCH (11:10)
[2020-07-10] MEDS: CLOPIDOGREL 75 MG TABLET PO SCH (11:12)
[2020-07-10] MEDS: VITAMIN D 5,000 UNIT CAP PO SCH (11:12)
[2020-07-10] MEDS: FUROSEMIDE 40 MG TABLET PO SCH (11:12)
[2020-07-10] MEDS: VALACYCLOVIR 500 MG TAB PO SCH (11:14)
[2020-07-10] MEDS: TAMSULOSIN 0.4 MG SR CAP PO SCH (20:54)
[2020-07-10] MEDS: MELATONIN 5 MG TABLET PO PRN (20:55)
[2020-07-10] MEDS: GABAPENTIN 300 MG CAP PO SCH (21:00)
[2020-07-11] MEDS: LEVOTHYROXINE SOD 0.125 MG TAB PO SCH (05:48)
[2020-07-11 06:37] VITALS: BMI 26.8
[2020-07-11] MEDS: ERYTHROMYCIN 250 MG PO SCH ×3 (07:30→16:30)
[2020-07-11] MEDS: NACHLORIDE 0.45% 1,000 ML IV SCH (08:18)
[2020-07-11] MEDS: INSULIN GLARGINE 100 UNITS/ML SQ SCH (08:20)
[2020-07-11] MEDS: FUROSEMIDE 40 MG TABLET PO SCH (08:21)
[2020-07-11] MEDS: CLOPIDOGREL 75 MG TABLET PO SCH (08:21)
[2020-07-11] MEDS: carvediloL 3.125 MG TAB PO SCH (08:21)
[2020-07-11] MEDS: VITAMIN D 5,000 UNIT CAP PO SCH (08:21)
[2020-07-11] MEDS: VALACYCLOVIR 500 MG TAB PO SCH (08:23)
[2020-07-11] MEDS: GLUCERNA SHAKE 237 ML CAN PO SCH ×2 (08:24→20:34)
--- NOTE | 2020-07-11 09:01 | P.PN ---
Date of Service: 07/09/20 Subjective Patient is starting to improve. However, he still having some nausea and vomiting. Continue monitoring renal function. Patient may have gastroparesis. Will start erythromycin. Also, given extra dose of Reglan Review of Systems 10-point ROS is otherwise unremarkable Physical Examination - Vital Signs Reviewed - Physical Exam General: Alert, In no apparent distress, Oriented x3 Respiratory: Clear to auscultation bilaterally, Normal air movement Cardiovascular: Regular rate/rhythm, Normal S1 S2, No murmurs Gastrointestinal: Normal bowel sounds, Soft and benign, Non-distended, No tenderness Musculoskeletal: No clubbing, No swelling, No tenderness Neurological: Normal strength at 5/5 x4 extr, Sensation intact, Cranial nerves 3-12 intact Assessment & Plan - Problems (Diagnosis) (1) Acute kidney injury Current Visit: Yes Status: Acute (2) Uremic encephalopathy syndrome Current Visit: Yes Status: Acute (3) Anorexia nervosa, unspecified Current Visit: Yes Status: Acute (4) Hypertension Onset Date: 05/29/16 Current Visit: Yes Status: Chronic Qualifiers: Hypertension type: essential hypertension Qualified Code(s): I10 - Essential (primary) hypertension (5) IDDM (insulin dependent diabetes mellitus) Current Visit: Yes Status: Chronic (6) History of coronary artery bypass graft x 2 Current Visit: No Status: Acute (7) CAD (coronary artery disease) Onset Date: 05/29/16 Current Visit: No Status: Chronic Qualifiers: Coronary Disease-Associated Artery/Lesion type: unspecified vessel or lesion type [place] vs. transplanted heart: [place] heart Associated angina: without angina Qualified Code(s): I25.10 - Atherosclerotic heart disease of [place] coronary artery without angina pectoris (8) History of colon cancer Current Visit: No Status: Chronic (9) Hyperlipidemia Onset Date: 05/29/16 Current Visit: No Status: Chronic Qualifiers: Hyperlipidemia type: unspecified Qualified Code(s): E78.5 - Hyperlipidemia, unspecified (10) PAD (peripheral artery disease) Onset Date: 05/29/16 Current Visit: No Status: Chronic - Plan Plan: 1. Continue with IV hydration 2. Nephrology consultation appreciate 3. Patient persistent nausea and vomiting and will change to inpatient hospitalization 4. Continue with monitoring labs closely 5. No significant improvement in nausea and vomiting at this time 6. Strict blood pressure and blood sugar control 7. GI and DVT prophylaxis
--- NOTE | 2020-07-11 09:02 | P.PN ---
Date of Service: 07/10/20 Subjective Patient is feeling better. He did have nausea and vomiting last night. I did give him an extra dose of her Reglan. hopefully continues to improve and we can work on discharge planning. Otherwise he may need upper GI Review of Systems 10-point ROS is otherwise unremarkable Physical Examination - Vital Signs Reviewed - Physical Exam General: Alert, In no apparent distress, Oriented x3 Respiratory: Clear to auscultation bilaterally, Normal air movement Cardiovascular: Regular rate/rhythm, Normal S1 S2, No murmurs Gastrointestinal: Normal bowel sounds, Soft and benign, Non-distended, No tenderness Musculoskeletal: No clubbing, No swelling, No tenderness Neurological: Normal strength at 5/5 x4 extr, Sensation intact, Cranial nerves 3-12 intact Assessment & Plan - Problems (Diagnosis) (1) Acute kidney injury Current Visit: Yes Status: Acute (2) Uremic encephalopathy syndrome Current Visit: Yes Status: Acute (3) Anorexia nervosa, unspecified Current Visit: Yes Status: Acute (4) Hypertension Onset Date: 05/29/16 Current Visit: Yes Status: Chronic Qualifiers: Hypertension type: essential hypertension Qualified Code(s): I10 - Essential (primary) hypertension (5) IDDM (insulin dependent diabetes mellitus) Current Visit: Yes Status: Chronic (6) History of coronary artery bypass graft x 2 Current Visit: No Status: Acute (7) CAD (coronary artery disease) Onset Date: 05/29/16 Current Visit: No Status: Chronic Qualifiers: Coronary Disease-Associated Artery/Lesion type: unspecified vessel or lesion type [place] vs. transplanted heart: [place] heart Associated angina: without angina Qualified Code(s): I25.10 - Atherosclerotic heart disease of [place] coronary artery without angina pectoris (8) History of colon cancer Current Visit: No Status: Chronic (9) Hyperlipidemia Onset Date: 05/29/16 Current Visit: No Status: Chronic Qualifiers: Hyperlipidemia type: unspecified Qualified Code(s): E78.5 - Hyperlipidemia, unspecified (10) PAD (peripheral artery disease) Onset Date: 05/29/16 Current Visit: No Status: Chronic - Plan Plan: 1. Continue with IV hydration 2. Nephrology consultation appreciate 3. Patient persistent nausea and vomiting and will change to inpatient hospitalization; gastroenterology consultation 4. Continue with monitoring labs closely 5. If no significant improvement in nausea and vomiting will be 6. Strict blood pressure and blood sugar control 7. GI and DVT prophylaxis
[2020-07-11 11:43] LABS: Absolute Lymphocytes (CBC) 1.2 K/uL (0.7-4.9); Basophils % 0.3 % (0-1.3); Hematocrit 35.6 % (39.6-49.0); Lymphocytes % 17.1 % (15.3-44.8); MPV 9.5 fL (7.6-11.3); RBC Red Blood Cell Count 3.92 M/uL (4.33-5.43)
[2020-07-11 11:45] LABS: Potassium 4.2 mmol/L (3.5-5.1)
[2020-07-11 11:54] LABS: C.diff Antigen/Toxin Ag neg : Tox neg (NEG : NEG)
--- NOTE | 2020-07-11 13:18 | PN ---
Date of Progress Note: 07/11/2020 Subjective: The patient is seen at the bedside. The patient states that he continues to have loose stools. He has had 4 loose stools today since the morning, 2 of them were large volume and the follo wing 2 were small amount. He denies any blood in the diarrhea. The patient states that his breathing has improved. His energy level has shown modest improvement. Objective: Vital Signs: Blood pressure is 168/71, pulse 77, temperature 97.9. General: Elderly, somewhat frail, in no acute distress. Heart: Regular rate and rhythm. No murmurs, rubs, gallops. Lungs: Grossly clear to auscultation bilaterally. Abdomen: Soft, nontender, nondistended. Extremities: With no edema. Laboratory Data: CBC stable. Serum chemistry; chloride 109, BUN creatinine 50/1.57 which showed an improvement from 82/1.73 yesterday. Peak BUN and creatinine were 121 and 2.17 on admission. BNP tod ay 24,555. Medications: Current medications were reviewed. Impression: 1.Acute kidney injury on chronic kidney disease, likely in the setting of volume depletion. 2.Altered mental status, likely in the setting of uremia which is also improved. 3.Poor p.o. intake. 4.History of coronary artery disease. 5.History of suspected diastolic congestive heart failure. 6.Enteritis. Plan: Mr. Denton appears to be somewhat volume depleted now on exam. Lasix will be placed on hold and we will continue the recommendation of gentle IV fluids, current consistency and rate. The [place] ent's meals at this time are regular consistency. Consideration should be given to putting the patie nt on a bland low residue diet with the patient's ongoing GI symptoms. Continue primary team followu p in terms of his stool losses. Continue daily labs. We will continue to follow. SE/MODL Voice ID: [id number] Report ID: [id number]
[2020-07-11] MEDS ORDERED: HYDROCORTISONE SUC 100 MG INJ IV ONE (15:13)
[2020-07-11] MEDS: TAMSULOSIN 0.4 MG SR CAP PO SCH (20:32)
[2020-07-11] MEDS: GABAPENTIN 300 MG CAP PO SCH (20:33)
[2020-07-11] MEDS: MELATONIN 5 MG TABLET PO PRN (21:36)
--- NOTE | 2020-07-12 03:25 | P.PN ---
Date of Service: 07/11/20 Subjective Pt no longer having nausea and vomiting. However, he did have another episode of diarrhea. This happened a couple of days ago as well. He said early this morning he had 4 bouts of diarrhea. Unknown etiology. Continue with tolerating diet and possible discharge over the next 48 hours Review of Systems 10-point ROS is otherwise unremarkable Physical Examination - Vital Signs Reviewed - Physical Exam General: Alert, In no apparent distress, Oriented x3 Respiratory: Clear to auscultation bilaterally, Normal air movement Cardiovascular: Regular rate/rhythm, Normal S1 S2, No murmurs Gastrointestinal: Normal bowel sounds, Soft and benign, Non-distended, Minimal discomfort Assessment & Plan - Problems (Diagnosis) (1) Acute kidney injury Current Visit: Yes Status: Acute (2) Uremic encephalopathy syndrome Current Visit: Yes Status: Acute (3) Anorexia nervosa, unspecified Current Visit: Yes Status: Acute (4) Hypertension Onset Date: 05/29/16 Current Visit: Yes Status: Chronic Qualifiers: Hypertension type: essential hypertension Qualified Code(s): I10 - Essential (primary) hypertension (5) IDDM (insulin dependent diabetes mellitus) Current Visit: Yes Status: Chronic (6) History of coronary artery bypass graft x 2 Current Visit: No Status: Acute (7) CAD (coronary artery disease) Onset Date: 05/29/16 Current Visit: No Status: Chronic Qualifiers: Coronary Disease-Associated Artery/Lesion type: unspecified vessel or lesion type [place] vs. transplanted heart: [place] heart Associated angina: without angina Qualified Code(s): I25.10 - Atherosclerotic heart disease of [place] coronary artery without angina pectoris (8) History of colon cancer Current Visit: No Status: Chronic (9) Hyperlipidemia Onset Date: 05/29/16 Current Visit: No Status: Chronic Qualifiers: Hyperlipidemia type: unspecified Qualified Code(s): E78.5 - Hyperlipidemia, unspecified (10) PAD (peripheral artery disease) Onset Date: 05/29/16 Current Visit: No Status: Chronic - Plan Plan: 1. Gentle hydration per nephrology recommendation 2. Nephrology consultation appreciate 3. Nausea and vomiting resolved; however, patient having diarrhea. Stool studies pending 4. Continue with monitoring labs closely 5. Resume cardiac meds 6. Strict blood pressure and blood sugar control 7. GI and DVT prophylaxis
[2020-07-12] MEDS: NACHLORIDE 0.45% 1,000 ML IV SCH ×2 (04:28→23:21)
[2020-07-12] MEDS: LEVOTHYROXINE SOD 0.125 MG TAB PO SCH (05:54)
[2020-07-12 06:00] LABS: Absolute Lymphocytes (CBC) 1.4 K/uL (0.7-4.9); Basophils % 0.2 % (0-1.3); Hematocrit 34.5 % (39.6-49.0); Lymphocytes % 21.8 % (15.3-44.8); MPV 8.8 fL (7.6-11.3); RBC Red Blood Cell Count 3.88 M/uL (4.33-5.43)
[2020-07-12 06:19] LABS: Magnesium 1.8 mg/dL (1.8-2.4); Phosphorus 3.8 mg/dL (2.5-4.9); Potassium 4.1 mmol/L (3.5-5.1)
[2020-07-12] MEDS: GLUCERNA SHAKE 237 ML CAN PO SCH ×2 (09:00→20:27)
[2020-07-12] MEDS: INSULIN GLARGINE 100 UNITS/ML SQ SCH (10:12)
[2020-07-12] MEDS: ERYTHROMYCIN 250 MG PO SCH ×3 (10:12→16:16)
[2020-07-12] MEDS: VITAMIN D 5,000 UNIT CAP PO SCH (10:13)
[2020-07-12] MEDS: carvediloL 3.125 MG TAB PO SCH (10:13)
[2020-07-12] MEDS: LACTOBACILLUS/ACIDOPHILUS TAB PO SCH ×3 (10:13→20:22)
[2020-07-12] MEDS: LOPERAMIDE HCL 2 MG CAPSULE PO PRN ×2 (10:13→16:17)
[2020-07-12] MEDS: VALACYCLOVIR 500 MG TAB PO SCH (10:14)
[2020-07-12] MEDS: CLOPIDOGREL 75 MG TABLET PO SCH (10:14)
--- NOTE | 2020-07-12 15:43 | P.PN ---
Subjective Date of Service: 07/12/20 Primary Care Provider: Dr. Dobbs Chief Complaint: Acute Kidney Failure, Dehydration Subjective: Improving Physical Examination - Vital Signs Temperature: 97.5 F Blood Pressure: 156/65 Pulse: 75 Respirations: 20 Pulse Ox (%): 98 - Studies Medications List Reviewed: Yes Assessment & Plan Discharge Plan: Other (long-term facility) Plan to discharge in: 24 Hours Physician Review Additional Text: Physical exam: Patient alert, cooperative Heart: Regular rate rhythm Lungs: Clear to auscultation Abdomen: Soft nontender nondistended Extremities: Good range of motion Impression: Acute on chronic renal disease stage III Uremic encephalopathy syndrome Hypertension Diabetes mellitus type 2 insulin-dependent History of CABG/CAD Hypothyroidism BPH Plan: Acute on chronic renal disease stage III: Patient continues to improve. Contin ue with nephrology recommendation. Will monitor closely. Physical therapy to ambulate and evaluate for skilled placement. Social work to also help with skilled placement. Uremic encephalopathy syndrome: Patient appears to be back to his baseline. Hypertension: Continue medication Diabetes mellitus type 2: Accu-Cheks in place. Continue insulin therapy History of CABG/CAD: Continue medication Hypothyroidism: Continue medication BPH: Continue medication Time Spent Managing Pts Care (In Minutes): 55
--- NOTE | 2020-07-12 20:18 | P.PN ---
Date of Service: 07/12/20 Vital Signs Temp Pulse Resp BP Pulse Ox 98.3 F 74 20 151/61 H 97 07/12/20 16:00 07/12/20 16:00 07/12/20 16:00 07/12/20 16:00 07/12/20 16:00 Medications Acetaminophen (Acetaminophen 500 Mg Tab) 500 mg PO Q6H PRN PRN Reason: Pain scale 2-4 (Mild) Last Admin: 07/07/20 22:27 Dose: 500 mg Documented by: Carvedilol (Carvedilol 3.125 Mg Tab) 6.25 mg PO DAILY [facility] Last Admin: 07/12/20 10:13 Dose: 6.25 mg Documented by: Cholecalciferol (Vitamin D 5,000 Unit Cap) 5,000 unit PO DAILY [facility] Last Admin: 07/12/20 10:13 Dose: 5,000 unit Documented by: Clopidogrel Bisulfate (Clopidogrel 75 Mg Tablet) 75 mg PO DAILY [facility] Last Admin: 07/12/20 10:14 Dose: 75 mg Documented by: Enteral Nutritional Formula (Glucerna Shake 237 Ml Can) 237 ml PO BID [facility] Last Admin: 07/12/20 09:00 Dose: Not Given Documented by: Gabapentin (Gabapentin 300 Mg Cap) 300 mg PO BEDTIME [facility] Last Admin: 07/11/20 20:33 Dose: Not Given Documented by: Sodium Chloride (Sodium Chloride 0.45%) 1,000 mls @ 50 mls/hr IV .Q20H [facility] Last Admin: 07/12/20 04:28 Dose: 1,000 mls Documented by: Insulin Glargine (Insulin Glargine 100 Units/Ml) 15 units SQ BREAKFAST [facility] Last Admin: 07/12/20 10:12 Dose: 15 units Documented by: Lactobacillus Acidoph/[place] (Lactobacillus/Acidophilus Tab) 1 tab PO TID [facility] Last Admin: 07/12/20 16:16 Dose: 1 tab Documented by: Levothyroxine Sodium (Levothyroxine Sod 0.125 Mg Tab) 0.125 mg PO DAILYAC [facility] Last Admin: 07/12/20 05:54 Dose: 0.125 mg Documented by: Loperamide HCl (Loperamide Hcl 2 Mg Capsule) 2 mg PO Q4H PRN PRN Reason: DIARRHEA Last Admin: 07/12/20 16:17 Dose: 2 mg Documented by: Melatonin (Melatonin 5 Mg Tablet) 10 mg PO BEDTIME PRN PRN PRN Reason: INSOMNIA Last Admin: 07/11/20 21:36 Dose: 10 mg Documented by: Erythromycin Dr 250 (Mg Tablet) 1 ea PO AC [facility] Last Admin: 07/12/20 16:16 Dose: 1 ea Documented by: Sodium Chloride (Flush Normal Saline 10 Ml) 10 ml IV BID [facility] Last Admin: 07/12/20 09:00 Dose: 10 ml Documented by: Tamsulosin HCl (Tamsulosin 0.4 Mg Sr Cap) 0.4 mg PO BEDTIME [facility] Last Admin: 07/11/20 20:32 Dose: 0.4 mg Documented by: Valacyclovir HCl (Valacyclovir 500 Mg Tab) 500 mg PO DAILY [facility] Last Admin: 07/12/20 10:14 Dose: 500 mg Documented by: Assessment/ Plan: Nephrology CPS stable without CP or SOB. Reports that his N/V and diarrhea has improved today. Feeling better. No acute events overnight. Vitals, medications, blood work and imaging reviewed in the chart. General: In no apparent distress, Cooperative HEENT: Atraumatic Neck: Supple Respiratory: Clear to auscultation bilaterally Cardiovascular: No edema, Regular rate/rhythm Gastrointestinal: Soft and benign, Non-distended Musculoskeletal: No clubbing, No contractures Integumentary: No rashes, No cyanosis Neurological: Normal speech Blood work reviewed in the chart. Imagings Data: EXAM DESCRIPTION: CT - Abdomen Pelvis Wo Contrast - 07/07/2020 5:49 pm CLINICAL HISTORY: Abdominal pain. decreased appetite COMPARISON: CT ABD PELVIS W CONTRAST dated 07/02/2015 TECHNIQUE: CT imaging of the abdomen and pelvis was performed without contrast. Solid organ, bowel and vascular assessment is limited due to lack of IV and oral contrast. All CT scans are performed using dose optimization technique as appropriate and may include automated exposure control or mA/KV adjustment according to patient size. FINDINGS: Small bilateral pleural effusions are noted, larger on the right.Cholecystectomy. The liver, spleen, pancreas, adrenal glands and left kidney are within normal limits for a limited non-contrast examination.Punctate caliceal right renal calculi without hydronephrosis. No bowel obstruction, free air, free fluid or abscess. Postsurgical changes affect the sigmoid colon. Nonvisualized appendix. Heavy aortic atherosclerosis. The osseous structures are within normal limits. IMPRESSION: No acute intra-abdominal or pelvic findings. Small bilateral pleural effusions, larger on the right. Punctate right renal calculi. A limited non-contrast examination was performed as detailed. EXM DESCRIPTION: RAD - Chest Single View - 07/07/2020 5:04 pm CLINICAL HISTORY: DYSPNEA Chest pain. COMPARISON: Chest Single View dated 03/13/2020; Chest Single View dated 11/30/2016; Chest Single View dated 11/27/2016; Chest Single View dated 05/23/2016 FINDINGS: Portable technique limits examination quality. Mild interstitial edema suspected. Small right pleural effusion. The heart is moderately enlarged in size. No displaced fractures.Sternotomy wires present. IMPRESSION: Mild CHF. Conclusions/Impression: ELIZA with uremia likely due to hypovolemia CKD III with proteinuria -Stop IVF in the morning. -No NSAIDs Hyperkalemia -Renal diet Hypocalcemia -Continue Vitamin D Hyperuricemia HTN with CKD/ CHF -Continue Coreg 6.25mg BID -Restart Ramipril 2.5mg qhs Diastolic CHF BL Pleural Effusion -Stop the IVF in the morning DM II with CKD -Continue Lantus Anemia in chronic illness -Monitor H&H BPH with LUTS -Continue tamsulosin
[2020-07-12] MEDS: GABAPENTIN 300 MG CAP PO SCH (20:27)
[2020-07-12] MEDS: TAMSULOSIN 0.4 MG SR CAP PO SCH (20:27)
[2020-07-12] MEDS: MELATONIN 5 MG TABLET PO PRN (21:35)
[2020-07-13 00:02] VITALS: O2SAT 98
[2020-07-13] MEDS: LEVOTHYROXINE SOD 0.125 MG TAB PO SCH (05:31)
[2020-07-13 06:04] LABS: Potassium 3.6 mmol/L (3.5-5.1)
[2020-07-13] MEDS: INSULIN GLARGINE 100 UNITS/ML SQ SCH (08:00)
[2020-07-13] MEDS: carvediloL 3.125 MG TAB PO SCH (08:11)
[2020-07-13] MEDS: VITAMIN D 5,000 UNIT CAP PO SCH (08:11)
[2020-07-13] MEDS: VALACYCLOVIR 500 MG TAB PO SCH (08:11)
[2020-07-13] MEDS: LACTOBACILLUS/ACIDOPHILUS TAB PO SCH ×2 (08:11→13:02)
[2020-07-13] MEDS: ERYTHROMYCIN 250 MG PO SCH ×3 (08:12→16:05)
[2020-07-13] MEDS: CLOPIDOGREL 75 MG TABLET PO SCH (08:12)
[2020-07-13] MEDS: GLUCERNA SHAKE 237 ML CAN PO SCH (08:13)
[2020-07-13] MEDS: LOPERAMIDE HCL 2 MG CAPSULE PO PRN ×2 (11:29→16:08)
--- NOTE | 2020-07-13 15:33 | P.DS ---
Admission Date: 07/07/20 Discharge Date: 07/13/20 Primary Care Provider: Dr. Dobbs Disposition: TRANSFER TO SNF - MEDICAL Discharge Condition: GOOD Reason for Admission: Acute Kidney Failure, Dehydration Consultations: Nephrology-Dr. Magdaleno Procedures: COVID: Negative CT Scan: FINDINGS: Small bilateral pleural effusions are noted, larger on the right.Cholecystectomy. The liver, spleen, pancreas, adrenal glands and left kidney are within normal limits for a limited non-contrast examination.Punctate caliceal right renal calculi without hydronephrosis. No bowel obstruction, free air, free fluid or abscess. Postsurgical changes affect the sigmoid colon. Nonvisualized appendix. Heavy aortic atherosclerosis. The osseous structures are within normal limits. IMPRESSION: No acute intra-abdominal or pelvic findings. Small bilateral pleural effusions, larger on the right. Punctate right renal calculi. 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 Patient stated that he has had a 3 day history of generalized weakness, decreased appetite, rhinorrhea, fatigued but denies fever, vomiting, or diarrhea. Patient stated that he has not been eating or drinking well over the past few days and feels that he is getting worse. Patient was worked up in the emergency room and found to have a sodium of 138, potassium 4.9, chloride 109, bicarb 21, BUN in 121, creatinine 2.17, glucose 134. Patient had a white cell count of 7.8, hemoglobin 11, hematocrit 33.4, platelet 165. Pat ient was negative for SARs and negative for influenza. Patient had CT of the abdomen and pelvis completed along with chest x-ray one-view. Both without acute findings. Past medical history shows trended elevation in creatinine but today almost 0.5 higher on his creatinine and markedly higher on his BUN. Patient was admitted for further evaluation and treatment. Hospital Course: Patient presented with weakness secondary to acute on chronic renal disease stage III with uremic encephalopathy syndrome. Patient with underlying diabetes, hypertension, history of CABG/CAD, hypothyroidism and BPH. The patient was admitted for treatment. Patient received IV fluids with improvement. Patient also had diarrhea which improved with medication. C diff was negative. Patient was seen and evaluated by nephrology. His condition improved. Patient stable at this time. Patient was evaluated to go to a skilled facility and approved. During the course of his stay his medications have been adjusted. Patient will no longer take Lasix. At discharge patient go to the skilled facility to continue rehabilitation prior to being discharged home.Recommend follow up with nephrology in 1-2 weeks to follow up this hospitalization. Recommend to recheck lab-BMP in 1 week to further monitor and address. Future medications may need to be renally dose. Recommend of use of nonsteroidal anti-inflammatories. Patient with hypertension. At discharge medications have been adjusted. At discharge she will continue with carvedilol 6.25 mg 1 pill daily and of ramipril 2.5 mg daily. Patient with diabetes mellitus type 2. Medications have been adjusted. At discharge patient will continue with Levemir 15 units subcu daily. Recommend to maintain blood sugar less than 140 fasting and less than 200 after meals. Further adjustment can be done by his PCP. Patient with history of CABG and CAD. Please note Lasix has been discontinued due to recent dehydration and renal disease. Patient will continue with Plavix 75 mg daily. Recommend follow up with cardiology as directed. Patient with hypothyroidism. At discharge he will continue with levothyroxine 125 mcg daily. Patient with BPH. At discharge patient will continue with Flomax 0.4 mg daily. At discharge patient will continue with lactobacillus 3 times a day. Patient may take Imodium as needed for diarrhea. This can be further monitored as an outpatient. Patient with diabetic neuropathy. At discharge patient will continue with gabapentin 600 mg at bedtime. Patient also takes Valtrex 500 mg daily. This can be continued. Vital Signs/Physical Exam: Temp Pulse Resp BP Pulse Ox 98.2 F 68 18 148/69 H 96 07/13/20 12:00 07/13/20 12:00 07/13/20 12:00 07/13/20 12:07/13/20 12:00 General: Alert, In no apparent distress, Oriented x3, Cooperative HEENT: Atraumatic Neck: Supple Respiratory: Clear to auscultation bilaterally, Normal air movement Cardiovascular: Normal pulses, Regular rate/rhythm Gastrointestinal: Normal bowel sounds, Soft and benign, Non-distended, No masses, No rebound, No guarding Neurological: Normal speech, Normal strength at 5/5 x4 extr, Normal tone, Normal affect Laboratory Data at Discharge: WBC 6.30 K/uL (4.3-10.9) 07/12/20 05:45 Hgb 11.7 g/dL (13.6-17.9) L 07/12/20 05:45 Hct 34.5 % (39.6-49.0) L 07/12/20 05:45 Plt Count 159 K/uL (152-406) 07/12/20 05:45 Sodium 139 mmol/L (136-145) 07/13/20 05:30 Potassium 3.6 mmol/L (3.5-5.1) 07/13/20 05:30 BUN 38 mg/dL (7-18) H 07/13/20 05:30 Creatinine 1.23 mg/dL (0.55-1.3) 07/13/20 05:30 Glucose 78 mg/dL (74-106) 07/13/20 05:30 Uric Acid 9.5 mg/dL (3.5-7.2) H D 07/09/20 05:59 Phosphorus 3.8 mg/dL (2.5-4.9) 07/12/20 05:45 Magnesium 1.8 mg/dL (1.8-2.4) D 07/12/20 05:45 Total Bilirubin 0.9 mg/dL (0.2-1.0) 07/09/20 05:59 AST 38 U/L (15-37) H 07/09/20 05:59 ALT 44 U/L (12-78) 07/09/20 05:59 Alkaline Phosphatase 211 U/L (45-117) H 07/09/20 05:59 Lipase 182 U/L (73-393) 07/07/20 16:30 Home Medications: Carvedilol [Coreg] 3.125 mg PO DAILY 07/08/20 Clopidogrel Bisulfate [Plavix] 75 mg PO DAILY 07/08/20 Gabapentin 300 mg PO BEDTIME 07/08/20 Levothyroxine [Synthroid*] 0.125 mg PO DAILY 07/08/20 Ramipril 2.5 mg PO BID 07/08/20 Tamsulosin HCl [Flomax] 0.4 mg PO BEDTIME 07/08/20 Valacyclovir [Valtrex*] 500 mg PO DAILY 07/08/20 Glucerna Shake [Glucerna*] 237 ml PO BID #60 can 07/13/20 Insulin Detemir [Levemir] 15 units SQ BREAKFAST #1 vial 07/13/20 Lactobacillus Acidophilus [Acidophilus Lactobacilli] 1 each PO TID #90 capsule 07/13/20 Loperamide [Imodium*] 2 mg PO Q4H PRN #15 cap 07/13/20 carvediloL [Coreg*] 6.25 mg PO DAILY #30 tab 07/13/20 New Medications: Lactobacillus Acidophilus [Acidophilus Lactobacilli] 1 each PO TID #90 capsule carvediloL [Coreg*] 6.25 mg PO DAILY #30 tab Glucerna Shake [Glucerna*] 237 ml PO BID #60 can Loperamide [Imodium*] 2 mg PO Q4H PRN #15 cap PRN Reason: Diarrhea Insulin Detemir [Levemir] 15 units SQ BREAKFAST #1 vial Physician Discharge Instructions: Patient presented with weakness secondary to acute on chronic renal disease stage III with uremic encephalopathy syndrome. Patient with underlying diabetes, hypertension, history of CABG/CAD, hypothyroidism and BPH. The patient was admitted for treatment. Patient received IV fluids with improvement. Patient also had diarrhea which improved with medication. C diff was negative. Patient was seen and evaluated by nephrology. His condition improved. Patient stable at this time. Patient was evaluated to go to a skilled facility and approved. During the course of his stay his medications have been adjusted. Patient will no longer take Lasix. At discharge patient go to the skilled facility to continue rehabilitation prior to being discharged home.Recommend follow up with nephrology in 1-2 weeks to follow up this hospitalization. Recommend to recheck lab-BMP in 1 week to further monitor and address. Future medications may need to be renally dose. Recommend of use of nonsteroidal anti-inflammatories. Patient with hypertension. At discharge medications have been adjusted. At discharge she will continue with carvedilol 6.25 mg 1 pill daily and of ramipril 2.5 mg daily. Patient with diabetes mellitus type 2. Medications have been adjusted. At discharge patient will continue with Levemir 15 units subcu daily. Recommend to maintain blood sugar less than 140 fasting and less than 200 after meals. Further adjustment can be done by his PCP. Patient with history of CABG and CAD. Please note Lasix has been discontinued due to recent dehydration and renal disease. Patient will continue with Plavix 75 mg daily. Recommend follow up with cardiology as directed. Patient with hypothyroidism. At discharge he will continue with levothyroxine 125 mcg daily. Patient with BPH. At discharge patient will continue with Flomax 0.4 mg daily. At discharge patient will continue with lactobacillus 3 times a day. Patient may take Imodium as needed for diarrhea. This can be further monitored as an outpatient. Patient with diabetic neuropathy. At discharge patient will continue with ga bapentin 600 mg at bedtime. Patient also takes Valtrex 500 mg daily. This can be continued. Diet: ADA Activity: Fall precautions Followup: Daniele Dobbs MD [Primary Care Provider] - Time spent managing pt's care (in minutes): 55
[2020-07-13] MEDS ORDERED: carvediloL 3.125 MG TAB PO ONE (16:23)
[2020-07-13 16:31] VITALS: BP 174/80
[2020-07-13 17:36] VITALS: TEMP 98.7
--- NOTE | 2020-07-13 19:47 | P.PN ---
Date of Service: 07/13/20 Vital Signs Temp Pulse Resp BP Pulse Ox 98.7 F 77 18 174/80 H 98 07/13/20 16:00 07/13/20 16:31 07/13/20 16:00 07/13/20 16:31 07/13/20 16:00 Assessment/ Plan: Nephrology CPS stable without CP or SOB. Doing well. No acute events overnight. Vitals, medications, blood work and imaging reviewed in the chart. General: In no apparent distress, Cooperative HEENT: Atraumatic Neck: Supple Respiratory: Clear to auscultation bilaterally Cardiovascular: No edema, Regular rate/rhythm Gastrointestinal: Soft and benign, Non-distended Musculoskeletal: No clubbing, No contractures Integumentary: No rashes, No cyanosis Neurological: Normal speech Blood work reviewed in the chart. Imagings Data: EXAM DESCRIPTION: CT - Abdomen Pelvis Wo Contrast - 07/07/2020 5:49 pm CLINICAL HISTORY: Abdominal pain. decreased appetite COMPARISON: CT ABD PELVIS W CONTRAST dated 07/02/2015 TECHNIQUE: CT imaging of the abdomen and pelvis was performed without contrast. Solid organ, bowel and vascular assessment is limited due to lack of IV and oral contrast. All CT scans are performed using dose optimization technique as appropriate and may include automated exposure control or mA/KV adjustment according to patient size. FINDINGS: Small bilateral pleural effusions are noted, larger on the right.Cholecystectomy. The liver, spleen, pancreas, adrenal glands and left kidney are within normal limits for a limited non-contrast examination.Punctate caliceal right renal calculi without hydronephrosis. No bowel obstruction, free air, free fluid or abscess. Postsurgical changes affect the sigmoid colon. Nonvisualized appendix. Heavy aortic atherosclerosis. The osseous structures are within normal limits. IMPRESSION: No acute intra-abdominal or pelvic findings. Small bilateral pleural effusions, larger on the right. Punctate right renal calculi. A limited non-contrast examination was performed as detailed. EXM DESCRIPTION: RAD - Chest Single View - 07/07/2020 5:04 pm CLINICAL HISTORY: DYSPNEA Chest pain. COMPARISON: Chest Single View dated 03/13/2020; Chest Single View dated 11/30/2016; Chest Single View dated 11/27/2016; Chest Single View dated 05/23/2016 FINDINGS: Portable technique limits examination quality. Mild interstitial edema suspected. Small right pleural effusion. The heart is moderately enlarged in size. No displaced fractures.Sternotomy wires present. IMPRESSION: Mild CHF. Conclusions/Impression: ELIZA with uremia likely due to hypovolemia CKD III with proteinuria -Stop IVF -No NSAIDs Hyperkalemia -Renal diet Hypocalcemia -Continue Vitamin D Hyperuricemia HTN with CKD/ CHF -Continue Coreg 6.25mg BID -Continue Ramipril 2.5mg qhs Diastolic CHF BL Pleural Effusion -Low sodium diet DM II with CKD -Continue Lantus Anemia in chronic illness -Monitor H&H BPH with LUTS -Continue tamsulosin
== END 2020-07-13 18:32 | DRG 683 ==
LOC: ER 15:44 → INTOOBSV 20:12 → ERHOLD 20:12 → OBSVTOIN 20:12 → 2ND 21:29
PROVIDERS: ADMIT Hospitalist; ATTEND Family Medicine
DX: N17.9 Acute kidney failure, unspecified (principal); F50.00 Anorexia nervosa, unspecified; I13.0 Hypertensive heart and chronic kidney disease with heart failure and stage 1 through stage 4 chronic kidney disease, or unspecified chronic kidney disease; I50.32 Chronic diastolic (congestive) heart failure; N18.30 Chronic kidney disease, stage 3 unspecified; E11.22 Type 2 diabetes mellitus with diabetic chronic kidney disease; E11.51 Type 2 diabetes mellitus with diabetic peripheral angiopathy without gangrene; E11.40 Type 2 diabetes mellitus with diabetic neuropathy, unspecified; I25.10 Atherosclerotic heart disease of native coronary artery without angina pectoris; E86.0 Dehydration; N40.1 Benign prostatic hyperplasia with lower urinary tract symptoms; E78.5 Hyperlipidemia, unspecified; D63.8 Anemia in other chronic diseases classified elsewhere; E87.5 Hyperkalemia; E83.51 Hypocalcemia; E03.9 Hypothyroidism, unspecified; I25.2 Old myocardial infarction; Z88.1 Allergy status to other antibiotic agents; Z88.5 Allergy status to narcotic agent; Z79.82 Long term (current) use of aspirin; Z79.02 Long term (current) use of antithrombotics/antiplatelets; Z79.4 Long term (current) use of insulin; Z79.899 Other long term (current) drug therapy; Z90.49 Acquired absence of other specified parts of digestive tract; Z95.1 Presence of aortocoronary bypass graft; Z85.038 Personal history of other malignant neoplasm of large intestine; Z60.2 Problems related to living alone; Z89.429 Acquired absence of other toe(s), unspecified side; Z79.890 Hormone replacement therapy; Z68.26 Body mass index [BMI] 26.0-26.9, adult; Z20.822 Contact with and (suspected) exposure to COVID-19
CPT/HCPCS: 0240U; 36415; 71045; 71046; 74176; 80048; 80053; 80076; 81001; 81003; 81015; 82947; 83605; 83690; 83735; 83880; 84100; 84145; 84550; 85025; 87324; 87449; 96360; 96361; 97116; 97161; 97530; 99285; J1720; J1815; J2405; J2765; J7030; J7040

== ENCOUNTER 2020-07-30 12:58 | Inpatient (IN) | payer OTHER ==
[2020-07-30] MEDS ORDERED: FUROSEMIDE 40 MG/4 ML VIAL ONE (16:36)
[2020-07-30 16:46] LABS: Absolute Lymphocytes (CBC) 0.7 K/uL (0.7-4.9); Basophils % 0.3 % (0-1.3); Hematocrit 34.6 % (39.6-49.0); Lymphocytes % 5.3 % (15.3-44.8); MPV 8.8 fL (7.6-11.3); RBC Red Blood Cell Count 3.78 M/uL (4.33-5.43)
[2020-07-30 16:47] LABS: Protime INR 1.43
--- NOTE | 2020-07-30 17:07 | RAD REPORT ---
EXAM DESCRIPTION: RAD - Chest Single View - 07/30/2020 4:43 pm CLINICAL HISTORY: DYSPNEA Chest pain. COMPARISON: Chest Pa And Lat (2 Views) dated 07/09/2020; Chest Single View dated 07/07/2020; Chest Sin gle View dated 03/13/2020; Chest Single View dated 11/30/2016 FINDINGS: Portable technique limits examination quality. Mild area of straight is present in the right lung base with a small right pleural effusion. Linear a telectasis is present in the right mid lung. The heart is mildly enlarged in size. Sternotomy wires p resent. IMPRESSION: Mild infiltrate with small pleural effusion right lung base.
[2020-07-30 17:26] LABS: Albumin 3.3 g/dL (3.4-5.0); Bilirubin Direct 0.5 mg/dL (0-0.2); Bilirubin Total 1.1 mg/dL (0.2-1.0); Magnesium 1.8 mg/dL (1.8-2.4); Potassium 4.3 mmol/L (3.5-5.1); Protein, Total 7.7 g/dL (6.4-8.2); Troponin (Emerg Dept Use Only) 0.07 ng/mL (0.0-0.045)
--- NOTE | 2020-07-30 18:25 | EDPHYS ---
Physician Documentation [facility] Name: William Denton Age: 84 yrs Sex: Male : 1935 Arrival Date: 07/30/2020 Time: 13:04 Bed 27 Private MD: Scot Dobbs R ED Physician Kevyn Agudelo HPI: 07/31 00:45 This 84 yrs old Male presents to ER via Wheelchair with complaints of kb dehydration, Shortness Of Breath. 00:45 The patient has not experienced similar symptoms in the past. The patient has not kb recently seen a physician. 00:45 The patient has shortness of breath at rest, and the patient has a history of CHF. kb Onset: The symptoms/episode began/occurred 1 week(s) ago. Duration: The symptoms are continuous. The patient's shortness of breath is aggravated by exertion, is alleviated by rest, application of supplemental oxygen. Associated signs and symptoms: The patient has no apparent associated signs or symptoms. Severity of symptoms: At their worst the symptoms were moderate in the emergency department the symptoms are unchanged. Historical: - Allergies: 07/30 13:49 Codeine; ca1 13:49 sulfamethoxazole-trimethoprim; ca1 - Home Meds: 13:49 aspirin 81 mg Oral chew 1 tab once daily [Active]; ferrous sulfate 325 mg (65 mg iron) ca1 Oral tab twice a day [Active]; furosemide 40 mg Oral tab once daily [Active]; levemir [Active]; levolhyoxine 50mg daily [Active]; magnesium oxide 400 mg Oral tab daily [Active]; Plavix 75 mg Oral tab 1 tab once daily [Active]; pravastatin 40 mg Oral tab 1 tab once daily [Active]; ramipril 2.5 mg Oral cap 1 cap 2 times per day [Active]; senna 8.6 mg Oral tab 2 tabs once daily for as needed [Active]; - PMHx: 13:49 Diabetes - IDDM; Hypertension; Hypothyroidism; Myocardial infarction; ca1 - PSHx: 13:49 Appendectomy; ca1 - Immunization history:: Client reports receiving the 2nd dose of the Covid vaccine, Date received: July 24, 2020 Pneumococcal vaccine is up to date, Flu vaccine is up to date. - Social history:: Smoking status: Patient denies any tobacco usage or history of. ROS: 07/31 00:44 Constitutional: Negative for fever, chills, and weight loss, Cardiovascular: Negative kb for chest pain, palpitations, and edema, Abdomen/GI: Negative for abdominal pain, nausea, vomiting, diarrhea, and constipation, MS/Extremity: Negative for injury and deformity, Skin: Negative for injury, rash, and discoloration, Neuro: Negative for headache, weakness, numbness, tingling, and seizure. Respiratory: Positive for dyspnea on exertion, shortness of breath. Exam: 00:44 Constitutional: This is a well developed, well nourished patient who is awake, alert, kb and in no acute distress. Head/Face: Normocephalic, atraumatic. Cardiovascular: Regular rate and rhythm with a normal S1 and S2. No gallops, murmurs, or rubs. No pulse deficits. Abdomen/GI: Soft, non-tender. No distention Skin: Warm, dry with normal turgor. Normal color. MS/ Extremity: Pulses equal, no cyanosis. Neurovascular intact. Full, normal range of motion. Neuro: Awake and alert, GCS 15, oriented to person, place, time, and situation. Moves all extremities. Normal gait. 00:44 Respiratory: moderate respiratory distress is noted, Respirations: labored breathing, that is moderate, Breath sounds: decreased breath sounds, that are mild, are located in both bases. Vital Signs: 07/30 13:43 BP 138 / 83; Pulse 96; Resp 19 S; Temp 97.6(TE); Pulse Ox 96% on R/A; Weight 85.73 kg ca1 (R); Height 5 ft. 10 in. (177.80 cm) (R); Pain 0/10; 16:15 BP 149 / 86; Pulse 101; Resp 22; Pulse Ox 94% on 2 lpm NC; vg1 17:40 BP 142 / 75; Pulse 90; Resp 26; Pulse Ox 99% on 2 lpm NC; vg1 18:30 BP 133 / 86; Pulse 87; Resp 24; Pulse Ox 97% on 2 lpm NC; vg1 19:00 BP 122 / 95; Pulse 85; Resp 22; Pulse Ox 98% on 2 lpm NC; vg1 19:38 Temp 98.4; vg1 21:21 BP 157 / 79; Pulse 84; Resp 20; Pulse Ox 97% on 2 lpm NC; vg1 13:43 Body Mass Index 27.12 (85.73 kg, 177.80 cm) ca1 MDM: 15:54 Patient medically screened. kb 20:31 Data reviewed: vital signs, nurses notes. Data interpreted: Pulse oximetry: on room air kb is 98 %. Interpretation: normal. Counseling: I had a detailed discussion with the patient and/or guardian regarding: the historical points, exam findings, and any diagnostic results supporting the discharge/admit diagnosis, lab results, radiology results, the need for further work-up and treatment in the hospital. 07/30 16:07 Order name: Basic Metabolic Panel kb 07/30 16:07 Order name: CBC with Diff kb 07/30 16:07 Order name: LFT's; Complete Time: 17:31 kb 07/30 16:07 Order name: Magnesium; Complete Time: 17:31 kb 07/30 16:07 Order name: NT PRO-BNP; Complete Time: 17:31 kb 07/30 16:07 Order name: PT-INR; Complete Time: 18:09 kb 07/30 16:07 Order name: Troponin (emerg Dept Use Only); Complete Time: 17:31 kb 07/30 16:08 Order name: Basic Metabolic Panel; Complete Time: 17:31 EDMS 07/30 18:39 Order name: COVID-19 : Document "Date of Symptom Onset" if Symptomatic. kb 07/30 18:39 Order name: CORONAVIRUS EDMS 07/30 18:44 Order name: Procalcitonin; Complete Time: 19:56 kb 07/30 18:44 Order name: Blood Culture Adult (2) kb 07/30 18:44 Order name: Lactate; Complete Time: 19:36 kb 07/30 21:13 Order name: SARS-COV-2 RT PCR; Complete Time: 21:23 EDMS 07/30 16:07 Order name: XRAY Chest (1 view); Complete Time: 17:12 kb 07/30 16:07 Order name: EKG; Complete Time: 16:08 kb 07/30 16:07 Order name: Cardiac monitoring; Complete Time: 16:31 kb 07/30 16:07 Order name: EKG - Nurse/Tech; Complete Time: 16:16 kb 07/30 16:07 Order name: IV Saline Lock; Complete Time: 16:31 kb 07/30 16:07 Order name: Labs collected and sent; Complete Time: 16:30 kb 07/30 16:07 Order name: O2 Per Protocol; Complete Time: 16:16 kb 07/30 16:07 Order name: O2 Sat Monitoring; Complete Time: 16:16 kb 07/30 21:24 Order name: CRP la1 07/30 21:24 Order name: Ferritin la1 07/30 21:24 Order name: DD la1 07/30 21:46 Order name: C-Reactive Protein; Complete Time: 21:46 EDMS 07/30 21:46 Order name: Ferritin; Complete Time: 21:46 EDMS Administered Medications: 16:37 Drug: Lasix 40 mg Route: IVP; Site: right antecubital; vg1 18:10 Follow up: Response: No adverse reaction vg1 19:35 Drug: Lasix 20 mg Route: IVP; Site: right antecubital; vg1 20:30 Follow up: Response: No adverse reaction vg1 Disposition: 07/30/20 18:25 Hospitalization ordered by Tavon Cheatham for Observation. Preliminary diagnosis are Unspecified combined systolic (congestive) and diastolic (congestive) heart failure, Dyspnea. - Bed requested for Intensive Care Unit. - Status is Observation. vg1 - Condition is Stable. - Problem is new. - Symptoms are unchanged. Addendum: 08/01/2020 01:15 Co-signature as Attending Physician, Kevyn Agudelo MD I agree with the assessment and k dr plan of care. Signatures: Dispatcher [employer] EDMS Cecily Zuleta, CONTINUOUS LOFT OPERATOR-C CONTINUOUS LOFT OPERATOR-Ckb Kevyn Agudelo MD MD [facility] Viral Rooney FNP-C CONTINUOUS LOFT OPERATOR-Cla1 Yaritza Montoya, RN RN ca1 Joann Price, RN RN vg1 Celine Carbajal, ELHAM RN rd1 Corrections: (The following items were deleted from the chart) 07/30 20: 18:25 Hospitalization Ordered by Tavon Cheatham MD for Observation. Preliminary rd1 diagnosis is Unspecified combined systolic (congestive) and diastolic (congestive) heart failure; Dyspnea. Bed requested for Telemetry/MedSurg (observation). Status is Observation. Condition is Stable. Problem is new. Symptoms are unchanged. kb 21:58 21:19 07/30/2020 18:25 Hospitalization Ordered by Tavon Cheatham MD for Observation. vg1 Preliminary diagnosis is Unspecified combined systolic (congestive) and diastolic (congestive) heart failure; Dyspnea. Bed requested for Intensive Care Unit. Status is Observation. Condition is Stable. Problem is new. Symptoms are unchanged. rd1
--- NOTE | 2020-07-30 18:25 | ER ---
Nurse's Notes [facility] Name: William Denton Age: 84 yrs Sex: Male : 1935 Arrival Date: 07/30/2020 Time: 13:04 Bed 27 Private MD: Scot Dobbs R Diagnosis: Unspecified combined systolic (congestive) and diastolic (congestive) heart failure;Dyspnea Presentation: 07/30 13:43 Chief complaint: Care provider: He usually have SOB and weakness. He was discharged ca1 from the snf on 07/28/2020. He got more SOB now and more weakness. Denies cough and fever. Coronavirus screen: Client denies travel out of the [place] in the last 14 days. shortness of breath, Client presents with at least one sign or symptom that may indicate coronavirus-19. Standard/surgical mask placed on the client. Provider contacted for isolation considerations. Ebola Screen: Patient negative for fever greater than or equal to 101.5 degrees Fahrenheit, and additional compatible Ebola Virus Disease symptoms Patient denies exposure to infectious person. Patient denies travel to an Ebola-affected area in the 21 days before illness onset. No symptoms or risks identified at this time. Initial Sepsis Screen: Does the patient meet any 2 criteria? No. Patient's initial sepsis screen is negative. Does the patient have a suspected source of infection? No. Patient's initial sepsis screen is negative. Risk Assessment: Do you want to hurt yourself or someone else? Patient reports no desire to harm self or others. Onset of symptoms was July 30, 2020. 13:43 Method Of Arrival: Wheelchair ca1 13:43 Acuity: KARLA 3 ca1 Historical: - Allergies: 13:49 Codeine; ca1 13:49 sulfamethoxazole-trimethoprim; ca1 - Home Meds: 13:49 aspirin 81 mg Oral chew 1 tab once daily [Active]; ferrous sulfate 325 mg (65 mg iron) ca1 Oral tab twice a day [Active]; furosemide 40 mg Oral tab once daily [Active]; levemir [Active]; levolhyoxine 50mg daily [Active]; magnesium oxide 400 mg Oral tab daily [Active]; Plavix 75 mg Oral tab 1 tab once daily [Active]; pravastatin 40 mg Oral tab 1 tab once daily [Active]; ramipril 2.5 mg Oral cap 1 cap 2 times per day [Active]; senna 8.6 mg Oral tab 2 tabs once daily for as needed [Active]; - PMHx: 13:49 Diabetes - IDDM; Hypertension; Hypothyroidism; Myocardial infarction; ca1 - PSHx: 13:49 Appendectomy; ca1 - Immunization history:: Client reports receiving the 2nd dose of the Covid vaccine, Date received: July 24, 2020 Pneumococcal vaccine is up to date, Flu vaccine is up to date. - Social history:: Smoking status: Patient denies any tobacco usage or history of. Screenin:15 Abuse screen: Denies threats or abuse. Nutritional screening: No deficits noted. vg1 Tuberculosis screening: No symptoms or risk factors identified. Fall Risk No fall in past 12 months (0 pts). No secondary diagnosis (0 pts). IV access (20 points). Ambulatory Aid- None/Bed Rest/Nurse Assist (0 pts). Gait- Normal/Bed Rest/Wheelchair (0 pts) Mental Status- Oriented to own ability (0 pts). Total Bowling Fall Scale indicates No Risk (0-24 pts). Assessment: 16:10 General: Appears. General: Appears in no apparent distress. uncomfortable, Behavior is vg1 calm, cooperative. Pain: Denies pain. Neuro: Level of Consciousness is awake, alert, obeys commands, Oriented to person, place, time, situation. Cardiovascular: Patient's skin is warm and dry. Rhythm is sinus tachycardia. Cardiovascular:. Respiratory: Airway is patent Respiratory effort is even, labored, Respiratory pattern is regular, symmetrical, Breath sounds with crackles in right upper lobe Breath sounds are diminished in right posterior middle lobe and right posterior lower lobe. GI: No signs and/or symptoms were reported involving the gastrointestinal system. : No signs and/or symptoms were reported regarding the genitourinary system. EENT: No signs and/or symptoms were reported regarding the EENT system. Derm: Skin is red, Right lower extrimity. Musculoskeletal: Swelling present in DIANA lower extremities. 17:40 Reassessment: Patient appears in no apparent distress at this time. No changes from vg1 previously documented assessment. Patient and/or family updated on plan of care and expected duration. Pain level reassessed. Patient is alert, oriented x 3, equal unlabored respirations, skin warm/dry/pink. 19:16 Reassessment: Patient appears in no apparent distress at this time. No changes from vg1 previously documented assessment. Patient and/or family updated on plan of care and expected duration. Pain level reassessed. Patient is alert, oriented x 3, equal unlabored respirations, skin warm/dry/pink. 21:28 Reassessment: Attempted to call report. vg1 Vital Signs: 13:43 BP 138 / 83; Pulse 96; Resp 19 S; Temp 97.6(TE); Pulse Ox 96% on R/A; Weight 85.73 kg ca1 (R); Height 5 ft. 10 in. (177.80 cm) (R); Pain 0/10; 16:15 BP 149 / 86; Pulse 101; Resp 22; Pulse Ox 94% on 2 lpm NC; vg1 17:40 BP 142 / 75; Pulse 90; Resp 26; Pulse Ox 99% on 2 lpm NC; vg1 18:30 BP 133 / 86; Pulse 87; Resp 24; Pulse Ox 97% on 2 lpm NC; vg1 19:00 BP 122 / 95; Pulse 85; Resp 22; Pulse Ox 98% on 2 lpm NC; vg1 19:38 Temp 98.4; vg1 21:21 BP 157 / 79; Pulse 84; Resp 20; Pulse Ox 97% on 2 lpm NC; vg1 13:43 Body Mass Index 27.12 (85.73 kg, 177.80 cm) ca1 ED Course: 13:04 Patient arrived in ED. am2 13:04 Scot Dobbs MD is Private Physician. am2 13:48 Triage completed. ca1 13:49 Arm band placed on right wrist. ca1 15:54 Cecily Zuleta FNP-C [facility]. kb 15:54 Kevyn Agudelo MD is Attending Physician. kb 16:07 Joann Price, ELHAM is Primary Nurse. vg1 16:15 Patient has correct armband on for positive identification. Bed in low position. Call vg1 light in reach. Side rails up X2. Adult w/ patient. 16:30 Inserted saline lock: 20 gauge in right forearm, using aseptic technique. Blood dh4 collected. 16:44 XRAY Chest (1 view) In Process Unspecified. EDMS 18:25 Tavon Cheatham MD is Hospitalizing Provider. kb 19:07 Repeat lab(s) drawn. by me, sent to lab. First set of blood cultures drawn by me. vg1 19:25 Second set of blood cultures drawn by me. vg1 21:45 No provider procedures requiring assistance completed. Patient admitted, IV remains in vg1 place. Administered Medications: 16:37 Drug: Lasix 40 mg Route: IVP; Site: right antecubital; vg1 18:10 Follow up: Response: No adverse reaction vg1 19:35 Drug: Lasix 20 mg Route: IVP; Site: right antecubital; vg1 20:30 Follow up: Response: No adverse reaction vg1 Output: 17:39 Urine: 150ml (Voided); Total: 150ml. dh4 19:15 Urine: 400ml (Voided); Total: 550ml. vg1 20:15 Urine: 300ml (Voided); Total: 850ml. vg1 Outcome: 18:25 Decision to Hospitalize by Provider. kb 21:45 Admitted to ICU accompanied by tech, via stretcher, room 6, with oxygen, with chart, vg1 Report called to ELHAM Gooden 21:45 Condition: good 21:45 Instructed on the need for admit. 21:58 Patient left the ED. vg1 Signatures: Dispatcher [employer] EDCecily Jerry, CLAUDIA WHYTE-Praveena Royal 2 Yaritza Montoya, RN RN [facility] Kwame Crowe 4 Joann Price, RN RN vg1
[2020-07-30] MEDS ORDERED: FUROSEMIDE 20 MG/ 2ML VIAL ONE (19:43)
[2020-07-30 21:45] LABS: Ferritin 394.8 ng/mL (26-388)
--- NOTE | 2020-07-30 21:47 | P.HP ---
Certification for Inpatient Patient admitted to: Observation With expected LOS: <2 Midnights Patient will require the following post-hospital care: None Practitioner: I am a practitioner with admitting privileges, knowledge of patient current condition, hospital course, and medical plan of care. Services: Services provided to patient in accordance with Admission requirements found in Title 42 Section 412.3 of the Code of Federal Regulations <Viral Rooney - Last Filed: 07/30/20 21:49> Patient History Date of Service: 07/30/20 Reason for admission: Pulmonary edema, dyspnea History of Present Illness: 84 year old male with history of diabetes mellitus type 2, hypertension, hypothyroidism, chronic kidney disease stage 3, diastolic CHF, BPH presents emergency department for shortness of breath. Patient was recently seen here in transfer to residential facility for physical therapy, while at half-way patient was started back on his Lasix at 40 mg daily, upon discharge patient noticed increased swelling to his lower extremities and increasing shortness of breath. Patient evaluated in the emergency department, chest x-ray significant for mild infiltrate with small pleural effusions the right lung base, patient noted to have 1 to 2+ pitting edema bilateral lower extremities to the level of the tibia. Patient given 60 mg IV Lasix in the emergency department, is diuresing well. ED provider wishes to admit under observation for diuresis. Patient incidentally tested positive for COVID, , has recent negative test. Will obtain CRP, ferritin, D-dimer levels. Patient not hypoxic at this time but is dyspneic/tachypneic. Will admit for further evaluation and management. - Past Medical/Surgical History Diabetic: Yes -: Chronic diastolic CHF -: Diabetes mellitus type 2 -: CAD status post CABG -: Hypertension -: Hypothyroidism -: BPH -: colon CA 1995 -: COLON SX- 20 YRS AGO -: DOUBLE BYPASS -: Appendectomy -: TONSILLECTOMY -: OSTEOMYELITIS W/ TOE AMPUTATIONS -: skin graft-rt toe -: skin graft Psychosocial/ Personal History: Patient is retired and lives alone although he does have the additional help around the house - Family History Father -: Cancer Mother -: Heart disease, Diabetes Notes: Heart attack - Social History Alcohol use: No CD- Drugs: No Caffeine use: No Place of Residence: Home <Viral Rooney - Last Filed: 07/30/20 21:49> Date of Service: 07/31/20 <Tavon Cheatham - Last Filed: 07/31/20 21:33> Allergies sulfamethoxazole [From Bactrim] Allergy (Intermediate, Verified 07/07/20 22:14) Nausea/Vomiting trimethoprim [From Bactrim] Allergy (Intermediate, Verified 07/07/20 22:14) Nausea/Vomiting hydrocodone Adverse Reaction (Verified 07/07/20 22:14) Shortness of breath Home Medications: Clopidogrel Bisulfate [Plavix] 75 mg PO DAILY 07/08/20 Levothyroxine [Synthroid*] 0.125 mg PO DAILY 07/08/20 Ramipril 2.5 mg PO BID 07/08/20 Tamsulosin HCl [Flomax] 0.4 mg PO BEDTIME 07/08/20 Glucerna Shake [Glucerna*] 237 ml PO BID #60 can 07/13/20 Lactobacillus Acidophilus [Acidophilus Lactobacilli] 1 each PO TID #90 capsule 07/13/20 Loperamide [Imodium*] 2 mg PO Q4H PRN #15 cap 07/13/20 Ascorbic Acid [Vitamin C] 1 tab PO DAILY 07/31/20 Aspirin [Aspirin EC 81 MG] 1 tab PO DAILY 07/31/20 Calcium Carbonate/Vitamin D3 [Calcium 500 + Vit D 400 Tablet] 1 tab PO BID 07/31/20 Ferrous Sulfate [Ferrous Sulfate*] 1 tab PO DAILY 07/31/20 Furosemide 40 mg PO BID 07/31/20 Insulin Detemir [Levemir] See Protocol SQ BID 07/31/20 Magnesium Oxide 1 tab PO DAILY 07/31/20 Zinc Sulfate [Zinc Sulfate*] 1 cap PO DAILY 07/31/20 carvediloL [Coreg*] 1 tab PO BID 07/31/20 Review of Systems 10-point ROS is otherwise unremarkable General: Weakness Respiratory: Cough, Shortness of Breath, SOB with Excertion Cardiovascular: Edema <Viral Rooney - Last Filed: 07/30/20 21:49> Physical Examination - Physical Exam General: Alert, In no apparent distress HEENT: Atraumatic, PERRLA, Mucous membr. moist/pink Neck: Supple, 2+ carotid pulse no bruit, No LAD Respiratory: Clear to auscultation bilaterally, Normal air movement Cardiovascular: Regular rate/rhythm, Normal S1 S2, Edema (2+ pitting edema bilateral lower extremities) Gastrointestinal: Normal bowel sounds, No tenderness Musculoskeletal: No tenderness Integumentary: No rashes Neurological: Normal speech, Normal strength at 5/5 x4 extr, Normal tone, Normal affect - Studies Laboratory Data (last 24 hrs) 07/30/20 16:27: PT 16.5 H, INR 1.43 07/30/20 16:27: WBC 12.60 H, Hgb 11.4 L, Hct 34.6 L, Plt Count 171 07/30/20 16:27: Sodium 137, Potassium 4.3, BUN 55 H, Creatinine 1.69 H, Glucose 211 H, Magnesium 1.8, Total Bilirubin 1.1 H, AST 30, ALT 27, Alkaline Phosphatase 210 H <Viral Rooney - Last Filed: 07/30/20 21:49> - Studies Laboratory Data (last 24 hrs) 07/31/20 05:12: Sodium 138, Potassium 4.1, BUN 53 H, Creatinine 1.55 H, Glucose 151 H, Magnesium 1.8, Total Bilirubin 1.0, AST 24, ALT 25, Alkaline Phosphatase 193 H, Troponin I 0.08 H, Triglycerides 57, Cholesterol 110, HDL Cholesterol 43, Cholesterol/HDL Ratio 2.56 07/31/20 05:12: WBC 10.40 D, Hgb 11.2 L, Hct 33.3 L, Plt Count 175 07/30/20 23:14: Troponin I 0.09 H 07/30/20 16:27: WBC 12.60 H, Hgb 11.4 L, Hct 34.6 L, Plt Count 171 <Tavon Cheatham - Last Filed: 07/31/20 21:33> Assessment and Plan - Plan Assessment Dyspnea secondary to Acute on chronic diastolic congestive heart failure COVID 19+ CKD 3 with ELIZA Diabetes mellitus type 2, Hypertension, Hypothyroidism, BPH Plan Dyspnea secondary to Acute on chronic diastolic congestive heart failure: Continue with IV diuresis, 1500 cc per day fluid restriction, daily weights. Monitor on telemetry, cardiology consult in place. Last echocardiogram done in March 2020 demonstrates low normal EF of 50-55%. DVT prophylaxis heparin 5000 subcutaneous twice daily. COVID 19+: CRP, ferritin, D-dimer levels pending. Continue with steroids/supplements. Obtain daily room air saturations. Consult pulmonology and as steroids if necessary. Chest x-ray negative for COVID pneumonia at this time, patient not requiring any oxygen. CKD 3 with ELIZA: Baseline GFR appears to be in the 50s, 39 during ER stay. Suspect cardiorenal syndrome, will recheck chemistry with morning labs, consult nephrology as necessary. Diabetes mellitus type 2, Hypertension, Hypothyroidism, BPH: Obtain and continue home medications as appropriate. Stable. Discharge Plan: Home Plan to discharge in: 24 Hours - Advance Directives Does patient have a Living Will: Yes Does patient have a Durable POA for Healthcare: Yes - Code Status/Comfort Care Code Status Assessed: Yes (DNR) Critical Care: No Time Spent Managing Pts Care (In Minutes): 55 <Viral Rooney - Last Filed: 07/30/20 21:49> - Plan Plan of care reviewed as noted above by Viral Rooney dyspnea, acute on chronic diastolic CHF COVID-19+ diurese, steroids, trend CRP/ferritin, wean o2 <Tvaon Cheatham - Last Filed: 07/31/20 21:33>
[2020-07-30 22:04] LABS: Blood Morphology Comment NOT SEEN (NOT SEEN); Platelet Estimate ADEQ; White Blood Cell Scan OK (OK)
[2020-07-30] MEDS ORDERED: ACETAMINOPHEN 500 MG TAB PO PRN (22:28)
[2020-07-30] MEDS ORDERED: ONDANSETRON 4 MG/2 ML VIAL IV PRN (22:28)
[2020-07-30] MEDS: HEPARIN 5000 UNIT/ML 1 ML VIAL SQ SCH (22:59)
[2020-07-30] MEDS: INSULIN -REGULAR HUMAN 50 UNIT/0.5 ML ML SQ SCH (23:00)
[2020-07-31 00:47] VITALS: BMI 27.1
[2020-07-31 05:53] LABS: Absolute Lymphocytes (CBC) 0.8 K/uL (0.7-4.9); Basophils % 0.1 % (0-1.3); Hematocrit 33.3 % (39.6-49.0); MPV 8.9 fL (7.6-11.3); RBC Red Blood Cell Count 3.67 M/uL (4.33-5.43)
[2020-07-31 06:25] LABS: Ferritin 424.7 ng/mL (26-388); Magnesium 1.8 mg/dL (1.8-2.4); Potassium 4.1 mmol/L (3.5-5.1); Protein, Total 7.3 g/dL (6.4-8.2); Thyroid Stimulating Hormone 0.271 uIU/mL (0.360-3.740); Troponin I 0.08 ng/mL (0.0-0.045)
[2020-07-31] MEDS: FUROSEMIDE 40 MG/4 ML VIAL IV SCH ×3 (06:31→17:22)
[2020-07-31] MEDS: INSULIN -REGULAR HUMAN 50 UNIT/0.5 ML ML SQ SCH ×4 (07:30→21:00)
[2020-07-31] MEDS: THIAMINE HCL 100 MG TABLET PO SCH (08:44)
[2020-07-31] MEDS: ASCORBIC ACID 500 MG TABLET PO SCH ×4 (08:45→21:16)
[2020-07-31] MEDS: ZINC SULFATE 220 MG CAP PO SCH (08:45)
[2020-07-31] MEDS: VITAMIN D 1000 UNIT TAB PO SCH (08:46)
[2020-07-31] MEDS: HEPARIN 5000 UNIT/ML 1 ML VIAL SQ SCH ×2 (08:47→21:16)
[2020-07-31] MEDS: METHYLPREDNISOLONE 40 MG INJ IV SCH ×2 (08:47→21:15)
[2020-07-31 10:36] LABS: Urine Appearance CLEAR; Urine Bilirubin NEGATIVE (NEG); Urine Blood TRACE (NEG); Urine Color YELLOW; Urine Glucose NEGATIVE (NEG); Urine Protein TRACE (NEG); Urine Urobilinogen 0.2 mg/dL (0.2-1.0)
[2020-07-31 10:46] LABS: Urine Microscopic Reflex ORDER UMIC
[2020-07-31 11:12] LABS: Urine Bacteria NONE SEEN /HPF (NONE SEEN); Urine RBC <5 /HPF (NONE SEEN)
--- NOTE | 2020-07-31 11:33 | RAD REPORT ---
EXAM DESCRIPTION: RAD - Chest Single View - 07/31/2020 7:39 am CLINICAL HISTORY: SOB, dyspnea Chest pain. COMPARISON: Chest Single View dated 07/30/2020; Chest Pa And Lat (2 Views) dated 07/09/2020; Chest Sin gle View dated 07/07/2020; Chest Single View dated 03/13/2020 FINDINGS: Portable technique limits examination quality. Asymmetric bilateral pulmonary opacities are noted, more significant on the right, unchanged since pr ior study. The heart is mildly prominent size. Sternotomy wires are present. IMPRESSION: Stable chest since yesterday's study.
[2020-07-31] MEDS ORDERED: LOPERAMIDE HCL 2 MG CAPSULE PO PRN (17:09)
[2020-07-31] MEDS ORDERED: GLUCAGON 1 MG/VIAL IM PRN (17:09)
[2020-07-31] MEDS ORDERED: D50W 25 GM/50 ML SYRINGE IV PRN (17:09)
--- NOTE | 2020-07-31 17:15 | P.PN ---
Subjective Date of Service: 07/31/20 Chief Complaint: Pulmonary edema, dyspnea Subjective: No new changes (feels ok today, about same as when he came in, no worse, on 3L NC. CRP/ferritin elevated) Review of Systems 10-point ROS is otherwise unremarkable Physical Examination - Vital Signs Temperature: 97.1 F Blood Pressure: 154/78 Pulse: 90 Respirations: 20 Pulse Ox (%): 100 - Studies Laboratory Data (last 24 hrs) 07/31/20 05:12: Sodium 138, Potassium 4.1, BUN 53 H, Creatinine 1.55 H, Glucose 151 H, Magnesium 1.8, Total Bilirubin 1.0, AST 24, ALT 25, Alkaline Phosphatase 193 H, Troponin I 0.08 H, Triglycerides 57, Cholesterol 110, HDL Cholesterol 43, Cholesterol/HDL Ratio 2.56 07/31/20 05:12: WBC 10.40 D, Hgb 11.2 L, Hct 33.3 L, Plt Count 175 07/30/20 23:14: Troponin I 0.09 H 07/30/20 16:27: PT 16.5 H, INR 1.43 07/30/20 16:27: WBC 12.60 H, Hgb 11.4 L, Hct 34.6 L, Plt Count 171 07/30/20 16:27: Sodium 137, Potassium 4.3, BUN 55 H, Creatinine 1.69 H, Glucose 211 H, Magnesium 1.8, Total Bilirubin 1.1 H, AST 30, ALT 27, Alkaline Phosphatase 210 H Assessment & Plan Physician Review Additional Text: Physical Exam General: Alert, In no apparent distress HEENT: MMM, sclera anicteric, normal conjunctiva Respiratory: diminished bilaterally at bases, shallow inspiration, nonlabored on 3LNC Cardiovascular: Regular rate/rhythm, Normal S1 S2 Gastrointestinal: Normal bowel sounds, No tenderness Ext: 2+ pitting ramón b/l lower extremities Integumentary: No rashes Neurological: Normal speech, Normal strength at 5/5 x4 extr Problem List acute hypoxemic respiratory failure secondary to Acute on chronic diastolic congestive heart failure COVID 19+ CKD 3 with ELIZA Diabetes mellitus type 2, insulin dependent Hypertension Hypothyroidism BPH -continue IV lasix, fluid restriction, daily weights, telemetry. cardiology consulted -COVID-19 - on 3L NC, CRP and ferritin elevated, continue steroids/supplements, room air sats -pulmonlogy consulted -eliza likely cardiorenal, will trend -kendra hoyos 20 BID for now, adjust as needed, slightly lower than home regimen Code: DNR Dispo: anticipate dc home in ~2 days Time Spent Managing Pts Care (In Minutes): 40
[2020-07-31] MEDS: INSULIN GLARGINE 100 UNITS/ML SQ SCH (21:00)
[2020-07-31] MEDS: GLUCERNA SHAKE 237 ML CAN PO SCH (21:00)
[2020-07-31] MEDS: carvediloL 3.125 MG TAB PO SCH (21:15)
[2020-07-31] MEDS: TAMSULOSIN 0.4 MG SR CAP PO SCH (21:15)
[2020-08-01 06:53] LABS: Absolute Lymphocytes (CBC) 0.4 K/uL (0.7-4.9); Basophils % 0.2 % (0-1.3); Hematocrit 30.6 % (39.6-49.0); Lymphocytes % 3.8 % (15.3-44.8); RBC Red Blood Cell Count 3.37 M/uL (4.33-5.43)
[2020-08-01 08:49] LABS: Albumin 2.4 g/dL (3.4-5.0); Bilirubin Total 0.7 mg/dL (0.2-1.0); Ferritin 527.3 ng/mL (26-388); Magnesium 1.9 mg/dL (1.8-2.4); Potassium 3.4 mmol/L (3.5-5.1); Protein, Total 6.2 g/dL (6.4-8.2)
[2020-08-01] MEDS: INSULIN GLARGINE 100 UNITS/ML SQ SCH ×2 (09:20→20:44)
[2020-08-01] MEDS: INSULIN -REGULAR HUMAN 50 UNIT/0.5 ML ML SQ SCH ×4 (09:21→20:43)
[2020-08-01] MEDS: METHYLPREDNISOLONE 40 MG INJ IV SCH ×2 (09:22→20:43)
[2020-08-01] MEDS: LEVOTHYROXINE SOD 0.125 MG TAB PO SCH (09:22)
[2020-08-01] MEDS: ZINC SULFATE 220 MG CAP PO SCH (09:22)
[2020-08-01] MEDS: THIAMINE HCL 100 MG TABLET PO SCH (09:22)
[2020-08-01] MEDS: ASPIRIN EC 81 MG TAB PO SCH (09:23)
[2020-08-01] MEDS: VITAMIN D 1000 UNIT TAB PO SCH (09:23)
[2020-08-01] MEDS: GLUCERNA SHAKE 237 ML CAN PO SCH ×2 (09:24→20:44)
[2020-08-01] MEDS: CLOPIDOGREL 75 MG TABLET PO SCH (09:24)
[2020-08-01] MEDS: HEPARIN 5000 UNIT/ML 1 ML VIAL SQ SCH ×2 (09:24→20:44)
[2020-08-01] MEDS: FERROUS SULFATE 325 MG TAB PO SCH (09:24)
[2020-08-01] MEDS: ASCORBIC ACID 500 MG TABLET PO SCH ×4 (09:24→20:41)
[2020-08-01] MEDS: FUROSEMIDE 40 MG/4 ML VIAL IV SCH (09:24)
[2020-08-01] MEDS: carvediloL 3.125 MG TAB PO SCH ×2 (09:28→20:42)
--- NOTE | 2020-08-01 12:06 | P.CNS ---
Date of Consult: 08/01/20 Reason for Consult: Merida virus pneumonia Chief Complaint: Pulmonary edema, dyspnea History of Present Illness: Patient is 84 years of age anabolic syndrome chronic renal disease presented to the emergency room with dyspnea he is in a residential home facility and was being treated with Lasix a Min with lower extremity edema tested positive for merida virus patient has interstitial changes he is doing well Allergies sulfamethoxazole [From Bactrim] Allergy (Intermediate, Verified 07/07/20 22:14) Nausea/Vomiting trimethoprim [From Bactrim] Allergy (Intermediate, Verified 07/07/20 22:14) Nausea/Vomiting hydrocodone Adverse Reaction (Verified 07/07/20 22:14) Shortness of breath Home Medications: Clopidogrel Bisulfate [Plavix] 75 mg PO DAILY 07/08/20 Levothyroxine [Synthroid*] 0.125 mg PO DAILY 07/08/20 Ramipril 2.5 mg PO BID 07/08/20 Tamsulosin HCl [Flomax] 0.4 mg PO BEDTIME 07/08/20 Glucerna Shake [Glucerna*] 237 ml PO BID #60 can 07/13/20 Lactobacillus Acidophilus [Acidophilus Lactobacilli] 1 each PO TID #90 capsule 07/13/20 Loperamide [Imodium*] 2 mg PO Q4H PRN #15 cap 07/13/20 Ascorbic Acid [Vitamin C] 1 tab PO DAILY 07/31/20 Aspirin [Aspirin EC 81 MG] 1 tab PO DAILY 07/31/20 Calcium Carbonate/Vitamin D3 [Calcium 500 + Vit D 400 Tablet] 1 tab PO BID 07/31/20 Ferrous Sulfate [Ferrous Sulfate*] 1 tab PO DAILY 07/31/20 Furosemide 40 mg PO BID 07/31/20 Insulin Detemir [Levemir] See Protocol SQ BID 07/31/20 Magnesium Oxide 1 tab PO DAILY 07/31/20 Zinc Sulfate [Zinc Sulfate*] 1 cap PO DAILY 07/31/20 carvediloL [Coreg*] 1 tab PO BID 07/31/20 - Past Medical/Surgical History Diabetic: Yes -: Chronic diastolic CHF -: Diabetes mellitus type 2 -: CAD status post CABG -: Hypertension -: Hypothyroidism -: BPH -: colon CA 1995 -: COLON SX- 20 YRS AGO -: DOUBLE BYPASS -: Appendectomy -: TONSILLECTOMY -: OSTEOMYELITIS W/ TOE AMPUTATIONS -: skin graft-rt toe -: skin graft Psychosocial/ Personal History: Patient is retired and lives alone although he does have the additional help around the house - Family History Father Medical History: Cancer Mother Medical History: Heart disease, Diabetes Notes: Heart attack - Social History Smoking Status: Never smoker Alcohol use: No CD- Drugs: No Caffeine use: No Place of Residence: Home Review of Systems General: Weakness Respiratory: Shortness of Breath Cardiovascular: Edema Physical Examination Temp Pulse Resp BP Pulse Ox 96.9 F 70 20 123/58 L 96 08/01/20 08:00 08/01/20 09:28 08/01/20 08:00 08/01/20 09:28 08/01/20 08:00 General: Alert, Oriented x3 Respiratory: Diminished Cardiovascular: Normal S1 S2, Edema - Problems (1) Acute hypoxemic respiratory failure due to severe acute respiratory syndrome coronavirus 2 (SARS-CoV-2) disease Current Visit: Yes Status: Acute Plan: Patient is 84 years of age admitted with respiratory failure from merida virus is doing much better mild anemia mild presume chronic renal failure chest x-ray shows some interstitial changes signs stable as on Lasix at home possible discharge on low-dose prednisone
--- NOTE | 2020-08-01 15:26 | P.PN ---
Subjective Date of Service: 08/01/20 Chief Complaint: Pulmonary edema, dyspnea Subjective: Improving (swelling improved, breathing somewhat improved; still on O2, dyspnea, fatigue) Physical Examination - Vital Signs Temperature: 97.2 F Blood Pressure: 127/60 Pulse: 84 Respirations: 22 Pulse Ox (%): 99 Assessment & Plan Physician Review Additional Text: Physical Exam General: Alert, In no apparent distress HEENT: MMM, sclera anicteric, normal conjunctiva Pulm: diminished bilaterally at bases, shallow inspiration, nonlabored on 2LNC CV: Regular rate/rhythm, Normal S1 S2 Abd: Normal bowel sounds, No tenderness Ext: 1+ pitting edema b/l lower extremities Integumentary: No rashes Neurological: Normal speech, Normal strength at 5/5 x4 extr Problem List Acute hypoxemic respiratory failure secondary to Acute on chronic diastolic co ngestive heart failure COVID 19+ CKD 3 with ELIZA Diabetes mellitus type 2, insulin dependent Hypertension Hypothyroidism BPH -continue IV lasix, fluid restriction, daily weights, telemetry. cardiology consulted -COVID-19 - on 31 NC, CRP and ferritin elevated, continue steroids/supplements, room air sats -pulm consulted -eliza likely cardiorenal, will trend - improving -accucheks, levemir increased to 35 BID for now, adjust as needed -slowly improving Code: DNR Dispo: anticipate dc home in ~1 day Time Spent Managing Pts Care (In Minutes): 35
[2020-08-01] MEDS ORDERED: D50W 25 GM/50 ML VIAL IV PRN (16:00)
[2020-08-01] MEDS: FUROSEMIDE 20 MG/ 2ML VIAL IV SCH (16:32)
[2020-08-01] MEDS: TAMSULOSIN 0.4 MG SR CAP PO SCH (20:42)
[2020-08-01] MEDS ORDERED: POTASSIUM CL SA 10 MEQ TAB PO ONE ×2 (21:51→21:55)
[2020-08-02 03:56] LABS: Absolute Lymphocytes (CBC) 0.4 K/uL (0.7-4.9); Hematocrit 31.8 % (39.6-49.0); Lymphocytes % 2.5 % (15.3-44.8); RBC Red Blood Cell Count 3.52 M/uL (4.33-5.43)
[2020-08-02 04:35] LABS: Albumin 2.4 g/dL (3.4-5.0); Bilirubin Total 0.6 mg/dL (0.2-1.0); Ferritin 643.2 ng/mL (26-388); Magnesium 1.9 mg/dL (1.8-2.4); Potassium 3.9 mmol/L (3.5-5.1); Protein, Total 6.4 g/dL (6.4-8.2)
[2020-08-02] MEDS: INSULIN -REGULAR HUMAN 50 UNIT/0.5 ML ML SQ SCH ×4 (07:30→20:40)
[2020-08-02] MEDS: ASPIRIN EC 81 MG TAB PO SCH (08:27)
[2020-08-02] MEDS: VITAMIN D 1000 UNIT TAB PO SCH (08:27)
[2020-08-02] MEDS: THIAMINE HCL 100 MG TABLET PO SCH (08:27)
[2020-08-02] MEDS: carvediloL 3.125 MG TAB PO SCH ×2 (08:28→20:39)
[2020-08-02] MEDS: ASCORBIC ACID 500 MG TABLET PO SCH ×4 (08:28→20:39)
[2020-08-02] MEDS: LEVOTHYROXINE SOD 0.125 MG TAB PO SCH (08:29)
[2020-08-02] MEDS: FERROUS SULFATE 325 MG TAB PO SCH (08:29)
[2020-08-02] MEDS: METHYLPREDNISOLONE 40 MG INJ IV SCH ×2 (08:30→20:38)
[2020-08-02] MEDS: FUROSEMIDE 20 MG/ 2ML VIAL IV SCH ×2 (08:31→16:05)
[2020-08-02] MEDS: CLOPIDOGREL 75 MG TABLET PO SCH (08:31)
[2020-08-02] MEDS: ZINC SULFATE 220 MG CAP PO SCH (08:31)
[2020-08-02] MEDS: INSULIN GLARGINE 100 UNITS/ML SQ SCH ×2 (08:31→20:40)
[2020-08-02] MEDS: HEPARIN 5000 UNIT/ML 1 ML VIAL SQ SCH ×2 (08:32→20:39)
[2020-08-02] MEDS: GLUCERNA SHAKE 237 ML CAN PO SCH ×2 (08:33→20:39)
--- NOTE | 2020-08-02 08:41 | RAD REPORT ---
EXAM DESCRIPTION: RAD - Chest Single View - 08/02/2020 5:08 am CLINICAL HISTORY: hypoxia, COVID+ Chest pain. COMPARISON: Chest Single View dated 07/31/2020; Chest Single View dated 07/30/2020; Chest Pa And Lat ( 2 Views) dated 07/09/2020; Chest Single View dated 07/07/2020 FINDINGS: Portable technique limits examination quality. Mild bilateral interstitial lung prominence is seen, slightly greater on the right and mildly worse c ompared to 07/31/2020. Small right pleural effusion appears slightly larger. The heart is mildly enla rged in size with sternotomy wires present. No displaced fractures. IMPRESSION: Mild worsening in lung aeration is seen since prior study.
[2020-08-02] MEDS ORDERED: POTASSIUM 25 MEQ EFFERV TAB PO ONE (09:00)
[2020-08-02] MEDS ORDERED: DOXYCYCLINE 100 MG in NA CHLORIDE 0.9% 100 ML IVPB SCH (15:00)
--- NOTE | 2020-08-02 17:03 | P.PN ---
Subjective Date of Service: 08/02/20 Chief Complaint: Pulmonary edema, dyspnea Subjective: No new changes (feels SOB/dyspnea, swelling improving, voiding without issue, reports RLE redness) Review of Systems 10-point ROS is otherwise unremarkable Physical Examination - Vital Signs Temperature: 96.4 F Blood Pressure: 148/67 Pulse: 69 Respirations: 20 Pulse Ox (%): 97 Assessment & Plan Physician Review Additional Text: Physical Exam General: Alert, In no apparent distress HEENT: sclera anicteric, normal conjunctiva Pulm: diminished bilaterally at bases, shallow inspiration, nonlabored on 1LNC CV: Regular rate/rhythm, Normal S1 S2 Abd: Normal bowel sounds, No tenderness Ext: 1+ pitting edema b/l lower extremities up to mid thigh RLE: anterior tibial area with erythema and shallow ulcers, warm to touch, no purulent drainage Neurological: Normal speech, Normal strength at 5/5 x4 extr Problem List Acute hypoxemic respiratory failure secondary to Acute on chronic diastolic congestive heart failure COVID 19+ RLE cellulitis, ulceration CKD 3 with ELIZA Diabetes mellitus type 2, insulin dependent Hypertension Hypothyroidism BPH -continue IV lasix, fluid restriction, daily weights, telemetry. cardiology consulted -COVID-19 - CRP and ferritin elevated, continue steroids/supplements, room air sats, pulm consulted -eliza likely cardiorenal, will trend - improving with diuresis -accucheks, levemir @35 BID, diabetic diet, adjust as needed -slowly improving -CXR worsening -check SpO2 with ambulation -start doxycycline for lower extremity cellulitis, patient states he was not treated for this at the halfway, covers MRSA Code: DNR Dispo: anticipate dc home in ~1-2 days Time Spent Managing Pts Care (In Minutes): 35
[2020-08-02] MEDS: TAMSULOSIN 0.4 MG SR CAP PO SCH (20:39)
[2020-08-03 04:06] LABS: Absolute Lymphocytes (CBC) 0.3 K/uL (0.7-4.9); Hematocrit 32.1 % (39.6-49.0); Lymphocytes % 1.8 % (15.3-44.8); MPV 9.6 fL (7.6-11.3); RBC Red Blood Cell Count 3.57 M/uL (4.33-5.43)
[2020-08-03 04:18] LABS: C-Reactive Protein 85.2 mg/L (<3.00); Ferritin 613.6 ng/mL (26-388); Potassium 3.5 mmol/L (3.5-5.1)
[2020-08-03 05:28] LABS: Blood Morphology Comment NOTED (NOT SEEN); Burr Cells 2+; Ovalocytes 1+; Platelet Estimate ADEQ
[2020-08-03] MEDS: GLUCERNA SHAKE 237 ML CAN PO SCH (08:24)
[2020-08-03] MEDS: INSULIN -REGULAR HUMAN 50 UNIT/0.5 ML ML SQ SCH ×3 (08:25→16:35)
[2020-08-03] MEDS: INSULIN GLARGINE 100 UNITS/ML SQ SCH (08:25)
[2020-08-03] MEDS: ASPIRIN EC 81 MG TAB PO SCH (08:26)
[2020-08-03] MEDS: LEVOTHYROXINE SOD 0.125 MG TAB PO SCH (08:26)
[2020-08-03] MEDS: VITAMIN D 1000 UNIT TAB PO SCH (08:26)
[2020-08-03] MEDS: FERROUS SULFATE 325 MG TAB PO SCH (08:26)
[2020-08-03] MEDS: CLOPIDOGREL 75 MG TABLET PO SCH (08:26)
[2020-08-03] MEDS: ZINC SULFATE 220 MG CAP PO SCH (08:26)
[2020-08-03] MEDS: METHYLPREDNISOLONE 40 MG INJ IV SCH (08:27)
[2020-08-03] MEDS: THIAMINE HCL 100 MG TABLET PO SCH (08:27)
[2020-08-03] MEDS: carvediloL 3.125 MG TAB PO SCH (08:27)
[2020-08-03] MEDS: ASCORBIC ACID 500 MG TABLET PO SCH ×3 (08:27→16:33)
[2020-08-03] MEDS: HEPARIN 5000 UNIT/ML 1 ML VIAL SQ SCH (08:27)
[2020-08-03] MEDS: FUROSEMIDE 20 MG/ 2ML VIAL IV SCH ×2 (08:28→16:34)
[2020-08-03] MEDS ORDERED: POTASSIUM 25 MEQ EFFERV TAB PO ONE (09:00)
[2020-08-03] MEDS ORDERED: DOXYCYCLINE 100 MG in NA CHLORIDE 0.9% 100 ML IVPB SCH (09:00)
--- NOTE | 2020-08-03 12:43 | P.DS ---
Admission Date: 07/31/20 Discharge Date: 08/03/20 Disposition: [place] [facility] CARE Discharge Condition: FAIR Reason for Admission: Pulmonary edema, dyspnea Consultations: Pulmonary-Dr. Winkler Brief History of Present Illness: 84-year-old gentleman with a history of congestive heart failure, diabetes mellitus type 2, recently diagnosed with COVID 19, and later tested negative was brought from home to the emergency department due to progressive lower extremity swelling and increasing shortness of breath. Patient had been on maintenance Lasix therapy. Chest x-ray done in the emergency department showed mild and small pleural effusion in the right lower lobe. Patient diagnosed with CHF exacerbation. He tested positive again for COVID 19. Patient hospitalized for further management. Hospital Course: He was admitted to the medical floor and treated for CHF exacerbation with IV Lasix. He was also put on IV steroid and vitamin supplementation for COVID pneumonia. Patient clinically improved with treatment, his lower extremity edema improved. He did not require oxygen. He was ambulating with no issues. Patient has clinically improved and deemed stable for discharge. He is discharged with oral prednisone to continue treatment for COVID pneumonia. His maintenance Lasix therapy or 40 mg b.i.d. is resumed on discharge. Home health also resumed on discharge. Vital Signs/Physical Exam: Temp Pulse Resp BP Pulse Ox 97.3 F 69 20 146/60 H 94 08/03/20 08:00 08/03/20 08:28 08/03/20 08:00 08/03/20 08:28 08/03/20 08:00 General: Alert, In no apparent distress, Oriented x3 HEENT: Mucous membr. moist/pink Neck: JVD not distended Respiratory: Clear to auscultation bilaterally, Normal air movement Cardiovascular: No edema, Regular rate/rhythm, Normal S1 S2 Gastrointestinal: Soft and benign Musculoskeletal: No swelling Integumentary: No rashes Neurological: Normal strength at 5/5 x4 extr Laboratory Data at Discharge: WBC 13.90 K/uL (4.3-10.9) H 08/03/20 03:08 Hgb 10.6 g/dL (13.6-17.9) L 08/03/20 03:08 Hct 32.1 % (39.6-49.0) L 08/03/20 03:08 Plt Count 157 K/uL (152-406) 08/03/20 03:08 PT 16.5 SECONDS (9.5-12.5) H 07/30/20 16:27 INR 1.43 07/30/20 16:27 Sodium 140 mmol/L (136-145) 08/03/20 03:08 Potassium 3.5 mmol/L (3.5-5.1) 08/03/20 03:08 BUN 77 mg/dL (7-18) H 08/03/20 03:08 Creatinine 1.27 mg/dL (0.55-1.3) 08/03/20 03:08 Glucose 315 mg/dL (74-106) H 08/03/20 03:08 Magnesium 2.0 mg/dL (1.8-2.4) 08/03/20 03:08 Total Bilirubin 0.6 mg/dL (0.2-1.0) 08/02/20 03:23 AST 19 U/L (15-37) 08/02/20 03:23 ALT 21 U/L (12-78) 08/02/20 03:23 Alkaline Phosphatase 167 U/L (45-117) H 08/02/20 03:23 Troponin I 0.08 ng/mL (0.0-0.045) H 07/31/20 05:12 Triglycerides 57 mg/dL (<150) 07/31/20 05:12 Cholesterol 110 mg/dL (<200) 07/31/20 05:12 HDL Cholesterol 43 mg/dL (40-60) 07/31/20 05:12 Cholesterol/HDL Ratio 2.56 07/31/20 05:12 Home Medications: Clopidogrel Bisulfate [Plavix] 75 mg PO DAILY 07/08/20 Levothyroxine [Synthroid*] 0.125 mg PO DAILY 07/08/20 Ramipril 2.5 mg PO BID 07/08/20 Tamsulosin HCl [Flomax] 0.4 mg PO BEDTIME 07/08/20 Glucerna Shake [Glucerna*] 237 ml PO BID #60 can 07/13/20 Lactobacillus Acidophilus [Acidophilus Lactobacilli] 1 each PO TID #90 capsule 07/13/20 Loperamide [Imodium*] 2 mg PO Q4H PRN #15 cap 07/13/20 Ascorbic Acid [Vitamin C] 1 tab PO DAILY 07/31/20 Aspirin [Aspirin EC 81 MG] 1 tab PO DAILY 07/31/20 Calcium Carbonate/Vitamin D3 [Calcium 500 + Vit D 400 Tablet] 1 tab PO BID 07/31/20 Ferrous Sulfate [Ferrous Sulfate*] 1 tab PO DAILY 07/31/20 Furosemide 40 mg PO BID 07/31/20 Insulin Detemir [Levemir] See Protocol SQ BID 07/31/20 Magnesium Oxide 1 tab PO DAILY 07/31/20 Zinc Sulfate [Zinc Sulfate*] 1 cap PO DAILY 07/31/20 carvediloL [Coreg*] 1 tab PO BID 07/31/20 Cholecalciferol (Vitamin D3) [Vitamin D 1000 Iu Tab*] 4,000 unit PO DAILY #120 tab 08/03/20 Thiamine HCl [Vitamin B-1*] 200 mg PO DAILY #60 tablet 08/03/20 predniSONE [Deltasone] 20 mg PO BID #21 tab 08/03/20 New Medications: predniSONE [Deltasone] 20 mg PO BID #21 tab Thiamine HCl [Vitamin B-1*] 200 mg PO DAILY #60 tablet Cholecalciferol (Vitamin D3) [Vitamin D 1000 Iu Tab*] 4,000 unit PO DAILY #120 tab Diet: ADA Activity: Ad karolina Followup: Daniele Dobbs MD [Primary Care Provider] - 1-2 Weeks Segundo Winkler MD [ACTIVE - CAN ADMIT] - 1 Week Time spent managing pt's care (in minutes): 35
[2020-08-03 16:28] VITALS: BP 153/70; TEMP 97.3
[2020-08-03 17:59] VITALS: O2SAT 98
[2020-08-04] MEDS ORDERED: MUPIROCIN 2% OINT 22GM TUBE TOP SCH (09:00)
== END 2020-08-03 17:50 | disposition home health service (06) | DRG 291 ==
LOC: ER 12:58 → ERHOLD 19:14 → 3RD-ICU 21:45 → 4TH 07-31 01:39 → OBSVTOIN 07-31 10:32
PROVIDERS: ADMIT Hospitalist; ATTEND Internal Medicine
DX: I13.0 Hypertensive heart and chronic kidney disease with heart failure and stage 1 through stage 4 chronic kidney disease, or unspecified chronic kidney disease (principal); U07.1 COVID-19; I50.33 Acute on chronic diastolic (congestive) heart failure; J96.01 Acute respiratory failure with hypoxia; J12.82 Pneumonia due to coronavirus disease 2019; N17.9 Acute kidney failure, unspecified; L03.115 Cellulitis of right lower limb; L97.919 Non-pressure chronic ulcer of unspecified part of right lower leg with unspecified severity; N18.30 Chronic kidney disease, stage 3 unspecified; E11.22 Type 2 diabetes mellitus with diabetic chronic kidney disease; E03.9 Hypothyroidism, unspecified; N40.0 Benign prostatic hyperplasia without lower urinary tract symptoms; I25.10 Atherosclerotic heart disease of native coronary artery without angina pectoris; I25.2 Old myocardial infarction; B95.62 Methicillin resistant Staphylococcus aureus infection as the cause of diseases classified elsewhere; Z88.5 Allergy status to narcotic agent; Z88.1 Allergy status to other antibiotic agents; Z79.82 Long term (current) use of aspirin; Z79.890 Hormone replacement therapy; Z79.899 Other long term (current) drug therapy; Z90.49 Acquired absence of other specified parts of digestive tract; Z95.1 Presence of aortocoronary bypass graft; Z85.038 Personal history of other malignant neoplasm of large intestine; Z60.2 Problems related to living alone; Z79.02 Long term (current) use of antithrombotics/antiplatelets; Z66 Do not resuscitate; Z79.4 Long term (current) use of insulin; Z79.52 Long term (current) use of systemic steroids
CPT/HCPCS: 36415; 71045; 80048; 80053; 80061; 80076; 81003; 81015; 82728; 82947; 83605; 83735; 83880; 84145; 84439; 84443; 84484; 85025; 85379; 85610; 86140; 87040; 93005; 96374; 97110; 97116; 97161; 97530; 99251; 99285; G0378; J1644; J1815; J1940; J2920; U0003

== ENCOUNTER 2020-08-04 15:48 | Emergency (ER) | payer OTHER ==
--- NOTE | 2020-08-04 16:05 | EDPHYS ---
Physician Documentation [facility] Name: William Denton Age: 84 yrs Sex: Male : 1935 Arrival Date: 08/04/2020 Time: 15:49 Bed 2 Private MD: ED Physician Kevyn Agudelo HPI: 08/04 15:58 This 84 yrs old Male presents to ER via EMS with complaints of CPR. jr8 15:58 Preceding the arrest, the patient was dyspneic. The arrest occurred at home. jr8 Pre-hospital course: The arrest was witnessed by family. Bystanders at the scene did not perform CPR. EMS care prior to arrival: initiation of ACLS, peripheral IV, was successfully placed. intubation was successfully performed, using a 7.5 ET tube. oxygen, by BVM to assist ventilations. 100% by ET tube. C-collar, backboard, 10 minutes elapsed prior to ACLS. ACLS has been in progress for 60 minutes. ACLS details: Initial rhythm was asystole. The presenting rhythm is PEA. Airway: Ambu assist ventilation, oral intubation, Medications given by EMS prior to arrival - Epinephrine IV x 4 doses, Defibrillation was not performed, an external pacer was not used, Response to therapy: continued arrest. It is unknown whether or not the patient has had similar symptoms in the past. The patient has been recently seen by a physician:. Per EMS patient was released not to long ago for cellulitis of the leg. Home health call 911 when patient started to have complaints of acute onset shortness of breath. Coded at home. Police arrived and started CPR 10 min after patient had been down. ACLS began shortly after that. Patient arrived in continued arrest . Historical: - Allergies: 15:58 Codeine; ss 15:58 sulfamethoxazole-trimethoprim; ss - PMHx: 15:58 Diabetes - IDDM; Hypertension; Hypothyroidism; Myocardial infarction; ss - PSHx: 15:58 Appendectomy; ss - Immunization history:: Adult Immunizations unknown. - Social history:: Smoking status: unknown. ROS: 15:58 Unable to obtain ROS due to CPR. jr8 Exam: 15:58 Eyes: Periorbital structures: appear normal, Pupils: are fixed and dilated. jr8 15:58 Cardiovascular: Rate: bradycardic, Rhythm: PEA, Pulses: not palpable. 15:58 Respiratory: Ventilated via ET tube and BVM at rate of 12 bpm. 15:58 Abdomen/GI: Inspection: bruising, suprapubic area, Palpation: soft, in all quadrants. 15:58 Skin: Appearance: Color: normal in color, Temperature: cool. Vital Signs: 15:44 Pulse 0; ss Blaise Coma Score: 15:58 Eye Response: none(1). Verbal Response: none(1). Motor Response: none(1). Modifying jr8 Factors: Intubated. Total: 3. Procedures: 15:58 CPR: See CPR flow sheet. jr8 MDM: 15:56 Patient medically screened. jr8 15:58 Data reviewed: vital signs, nurses notes. Counseling: I had a detailed discussion with [facility] the patient and/or guardian regarding: the historical points, exam findings, and any diagnostic results supporting the discharge/admit diagnosis. Administered Medications: No medications were administered Disposition: 15:58 . jr8 08/05 08:04 Co-signature as Attending Physician, Kevyn Agudelo MD I agree with the assessment and [facility] plan of care. Disposition: Patient pronounced on 08/04/20 15:48 by Merlin Montague. Impression: Cardiac arrest, Acute respiratory failure. - Released to Home. Signatures: Kevyn Agudelo MD MD [facility] Jacki Thomson RN RN Merlin Montague, JOAQUIN NUÑEZ jr8 Corrections: (The following items were deleted from the chart) 03 17:39 16:04 08/04/2020 16:04 Patient pronounced on 08/04/2020 at 15:48 by Merlin Montague. Impression: Cardiac arrest; Acute respiratory failure. Released to Home. jr8
--- NOTE | 2020-08-04 16:05 | ER ---
Nurse's Notes [facility] Name: William Denton Age: 84 yrs Sex: Male : 1935 Arrival Date: 08/04/2020 Time: 15:49 Bed 2 Private MD: Diagnosis: Cardiac arrest;Acute respiratory failure Presentation: 08/04 15:44 Method Of Arrival: EMS: [facility] ss 15:44 Acuity: KARLA 1 ss 15:44 Onset of symptoms was August 04, 2020 at 15:58. ss 15:44 Chief complaint: EMS states: c/g called 911, said she was with him, said he c/o sharp tw2 SOB, approx 5 mins after initial complaint, was unresponsive, with no pulse found, no CPR began, PD arrived approx 10 minutes after pt was down, no shocks advised per their AED, we took over \T\ began CPR at 1450 with thumper, 7.5 ET tube 23 at the teeth, bright red sputum expelled, after initial epi went from asystolic to PEA, we gave 4 rounds of EPI at 5 minute intervals per CPR protocols, first epi at 1457, \T\1505 we gave 100 sodium bicarb, we got 96.9 rectal temp, we got a 16f OG tube, 18 g RIGHT FA, Blue IO RIGHT tibia, c/g told us he was just discharged yesterday, bgl 202, approx 100 ml NS infused, no shocks delivered, 9 rhythm checks, no shocks delivered. 15:[address] Agudelo and JOAQUIN Macias at bedside as well as RT, Jessica Thompson tw2 RN, ELHAM Bernal and ELHAM Echeverria with nicolas Zuniga RN at bedside at this time. 15:55 Ebola Screen: Patient denies travel to an Ebola-affected area in the 21 days before tw2 illness onset. Historical: - Allergies: 15:58 Codeine; ss 15:58 sulfamethoxazole-trimethoprim; ss - PMHx: 15:58 Diabetes - IDDM; Hypertension; Hypothyroidism; Myocardial infarction; ss - PSHx: 15:58 Appendectomy; ss - Immunization history:: Adult Immunizations unknown. - Social history:: Smoking status: unknown. Assessment: 15:44 CPR assessment: unresponsive. Cardiac rhythm is PEA. ss 15:44 Neuro: Level of Consciousness is unresponsive. Respiratory: Airway via oral intubation ss Trachea midline Respiratory effort is even, Ventilator assessment: ET Tube: 7.5 23 cm at teeth, assisted ventilations. EENT: NG tube in place to R nare 16 F. Derm: Skin is mottled, pale. 15:47 Reassessment: pulse check, PEA. No pulse. JOAQUIN Sarmiento at bedside with ultrasound machine assessing for any cardiac activity. No cardiac activity is noted. 15:48 Reassessment: Time of . 16:07 Reassessment: PD dispatch notified of . ss Vital Signs: 15:44 Pulse 0; ss [place] Coma Score: 15:58 Eye Response: none(1). Verbal Response: none(1). Motor Response: none(1). Modifying jr8 Factors: Intubated. Total: 3. ED Course: 15:49 Patient arrived in ED. am2 15:54 Jessica Melendez RN is Primary Nurse. tw2 15:56 Merlin Montague PA is PHCP. jr8 15:56 Kevny Agudelo MD is Attending Physician. jr8 15:57 Triage completed. ss 16:04 Merlin Montague PA is Pronouncing Provider. jr8 16:06 Arm band placed on. tw2 Administered Medications: No medications were administered Outcome: 15:48 Patient : Time of 15:48 ss 15:48 Condition: 18:00 Patient left the ED. tw2 Signatures: Jacki Thomson RN RN Merlin Montague PA PA 8 Jessica Melendez RN RN tw2 Praveena Gupta am2 Corrections: (The following items were deleted from the chart) 16:02 15:44 Care prior to arrival: IV initiated. 18 GA, in the right forearm, Glucose check: ss 202 ss 16:06 15:44 Chief complaint: EMS states: Acute onset SOB. Pt reported SOB x 5 minutes before tw2 becoming unresponsive. CPR initiated by PD approximately 10 minutes after down time. Upon arrival, EMS found patient to be pulseless, asystole. Epi given x4. Pt remained pulseless since downtime. 1 amp bicarb also given en route. BGL 202. ss 16:06 15:44 Compressions began prior to arrival. ss tw2 16:06 15:44 Care prior to arrival: Assisted ventilation, Oral intubation, Oral airway placed, tw2 16: 15:44 Care prior to arrival: IV initiated. 18 GA, in the right forearm, Glucose check: tw2 202 16 F OG tube inserted to R nare 16: 15:55 Chief complaint: EMS states: c/g called 911, said she was with him, said he c/o tw2 sharp SOB, approx 5 mins after initial complaint, was unresponsive, with no pulse found, no CPR began, PD arrived approx 10 minutes after pt was down, no shocks advised per their AED, we took over \T\ began CPR at 1450 with thumper, 7.5 ET tube 23 at the teeth, bright red sputum expelled, after initial epi went from asystolic to PEA, we gave 4 rounds of EPI at 5 minute intervals per CPR protocols, first epi at 1457, \T\1505 we gave 100 sodium bicarb, we got 96.9 rectal temp, we got a 16f OG tube, 18 g RIGHT FA, Blue IO RIGHT tibia, c/g told us he was just discharged yesterday, bgl 202, approx 100 ml NS infused, no shocks delivered, 9 rhythm checks, no shocks delivered tw2 16: 15:55 Method Of Arrival: EMS: [facility] tw2 tw2 19:15 17:39 Patient left the ED. tw2
== END 2020-08-04 17:39 | disposition expired ==
LOC: ER 15:48
DX: I46.9 Cardiac arrest, cause unspecified (principal); E11.9 Type 2 diabetes mellitus without complications; Z79.4 Long term (current) use of insulin; I10 Essential (primary) hypertension; E03.9 Hypothyroidism, unspecified; I25.2 Old myocardial infarction
CPT/HCPCS: 92950; 99285